=== PATIENT | male | born 1960 | race African-American/Black ===

== ENCOUNTER 2017-01-29 08:07 | Inpatient (IN) | payer BC ==
--- NOTE | 2017-01-29 08:09 | PDOC ---
History of Present Illness - General Stated Complaint: CHEST TIGHTNESS Time Seen by Provider: 01/29/17 08:09 History Source: Patient Exam Limitations: No Limitations - History of Present Illness Initial Comments: 01/29/17 08:27 Pt presents to the ED after the acute onset of chest tightness and shortness of breath that began after shoveling snow today. Patient and report that he has been complaining of cough for the last week--was seen in urgent care and diagnosed with bronchitis. Awoke this morning with a subjective feeling of tightness in his left leg. Despite this, he was helping his shovel snow this morning. Patient did not experience chest tightness or shortness of breath while shoveling, but after going up and down the stairs quickly, he developed tightness in his chest and became short of breath. reports that he then collapsed and was briefly unconsicious. On arrival to the ED, patient walked in with assistance from his , but then collapsed at the door of the ED. Did not loose consciousness and was able to get onto a stretcher with assistance. Patient and deny cardiac history. Had stress test in February of 2016 that was normal. Presenting Symptoms: Chest Pain, Near-Syncope Timing/Duration: reports: intermittent Severity/Quality: reports: moderate Location: reports: substernal Chest Pain Radiation: reports: no radiation Activities at Onset: reports: exertion Prior Chest Pain/Cardiac Workup: reports: Stress Test Nitro Today/Relief: Yes: no nitro taken today Aspirin Received prior to arrival (Core Measure): Yes: no aspirin today Past History - Past Medical History Allergies/Adverse Reactions: Allergies Allergy/AdvReac Type Severity Reaction Status Date / Time No Known Allergies Allergy Verified 01/29/17 08:48 Home Medications: Ambulatory Orders Imatinib Mesylate [Gleevec] 400 mg PO DAILY 12/28/15 - Suicide/Smoking/Psychosocial Hx Smoking Status: No Smoking History: Never smoked Have you smoked in the past 12 months: No Number of Cigarettes Smoked Daily: 0 Hx Alcohol Use: Yes (stopped over 16 years) Drug/Substance Use Hx: No Substance Use Type: None Hx Substance Use Treatment: No Cardiac Specific PMH - Complaint Specific PMHX Abdominal Aortic Aneurysm: No Angina: No Cardiac Arrhythmia: No Cardiac Stent: No GERD: No Myocardial Infarction: No Pacemaker: No Pulmonary Embolus: No Valvular Heart Disease: No Peripheral Vascular Disease: No Review of Systems - Review of Systems Constitutional: Yes: Diaphoresis. No: Symptoms Reported, See HPI, Chills, Fever , Loss of Appetite, Malaise, Night Sweats, Weakness, Weight Stable, Unintentional Wgt. Loss, Unexplained wgt Loss, Other HEENTM: No: Symptoms Reported, See HPI, Eye Pain, Blurred Vision, Tearing, Recent change in vision, Double Vision, Cataracts, Ear Pain, Ocular Prothesis, Ear Discharge, Nose Pain, Nose Congestion, Tinnitus, Nose Bleeding, Hearing Loss , Throat Pain, Throat Swelling, Mouth Pain, Dental Problems, Difficulty Swallowing, Mouth Swelling, Other Respiratory: Yes: Cough, Shortness of Breath Cardiac (ROS): Yes: Chest Pain, Lightheadedness, Syncope ABD/GI: Yes: Nausea, Vomiting. No: Symptoms Reported, See HPI, Abdominal Distended, Abd. Pain w/ defecation, Blood Streaked Bowels, Constipated, Diarrhea , Difficulty Swallowing, Poor Appetite, Poor Fluid Intake, Rectal Bleeding, Indigestion, Abdominal cramping, Tarry Stools, Other Musculoskeletal: No: Symptoms Reported, See HPI, Back Pain, Gout, Joint Pain, Joint Swelling, Muscle Pain, Muscle Weakness, Neck Pain, Joint Stiffness, Other *Physical Exam - Vital Signs Last Vital Signs Temp Pulse Resp BP Pulse Ox 98.3 F 82 20 131/90 100 01/29/17 08:08 01/29/17 11:10 01/29/17 11:10 01/29/17 11:10 01/29/17 11:10 - Physical Exam General Appearance: Yes: Nourished, Appropriately Dressed, Mild Distress HEENT: positive: Normal Voice Neck: positive: Supple Respiratory/Chest: positive: Lungs Clear, Normal Breath Sounds. negative: Chest Tender, Respiratory Distress, Accessory Muscle Use, Labored Respiration, Rapid RR, Decreased Breath Sounds, Paradoxal Breathing, Crackles, Rales, Rhonchi , Stridor, Wheezing, Hyperresonant, Dullness, Plerual Rub, Other Cardiovascular: positive: Regular Rhythm, Regular Rate, S1, S2 Gastrointestinal/Abdominal: positive: Normal Bowel Sounds, Soft. negative: Tender, Flat, Organomegaly, Pulsatile Mass, Increased Bowel Sounds, Decreased BS , Protuberent, Distended, Guarding, Rebound, Tenderness, Hernia, Mass, Hepatomegaly, Spleenomegaly, Other Musculoskeletal: positive: Normal Inspection. negative: CVA Tenderness, CVA Tenderness (R), CVA Tenderness (L), Decreased Range of Motion, Muscle Spasm, Vertebral Tenderness, Other Extremity: negative: Normal Capillary Refill, Normal Inspection, Normal Range of Motion, Tender, Pelvis Stable, Coldness, Cyanosis, Delayed Capillary Refill, Pedal Edema, Swelling, Calf Tenderness, Erythema, Inflammation, Other Integumentary: positive: Pale, Clammy Neurologic: positive: Fully Oriented, Alert, Normal Mood/Affect Heart Score/ECG Review - History History: Highly suspicious - Electrocardiogram EKG: Non specific repolarization disturbance - Age Age: 45-65 - Risk Factors Based on the list above the patient has:: No risk factors known - Troponin Troponin: </= normal limit - Score Heart Score - Total: 4 - ECG Intrepretation Rhythm: Regular Rhythm - [facility]: Normal - ST and T Early Repolarization: No Non Specific ST-T Wave changes: Yes ED Treatment Course - LABORATORY CBC & Chemistry Diagram: 01/29/17 08:15 01/29/17 08:15 - ADDITIONAL ORDERS Additional order review: Laboratory Results 01/29/17 08:15 Sodium 135 L Potassium 3.4 L Chloride 105 Carbon Dioxide 19 L Anion Gap 11 BUN 20 H Creatinine 1.7 H Creat Clearance w eGFR 41.75 Random Glucose 192 H Calcium 8.5 Total Bilirubin 0.6 AST 20 ALT 27 Alkaline Phosphatase 52 Creatine Kinase 162 Creatine Kinase Index 1.4 CK-MB (CK-2) 2.3 Troponin I 0.03 B-Natriuretic Peptide 23.28 Total Protein 6.4 Albumin 3.7 01/29/17 08:15 RBC 4.61 MCV 92.2 MCHC 32.0 RDW 13.8 MPV 8.4 Neutrophils % 56.8 Lymphocytes % 30.3 Monocytes % 9.8 Eosinophils % 3.0 Basophils % 0.1 - RADIOLOGY Radiology Studies Ordered: Category Date Time Status CHEST X-RAY PORTABLE* [RAD] Stat Radiology 01/29/17 08:10 Completed DUPLEX VASCUL US-1 LEG [US] Stat Ultrasound 01/29/17 08:12 Completed - Medications Given in the ED: ED Medications Discontinued Medications Generic Name Dose Route Start Last Admin Trade Name Freq PRN Reason Stop Dose Admin Acetaminophen 1,000 mg 01/29/17 08:10 01/29/17 08:22 Ofirmev Injection - IVPB 01/29/17 08:11 1,000 mg ONCE ONE Administration Aspirin 324 mg 01/29/17 08:10 01/29/17 08:22 Asa - PO 01/29/17 08:11 324 mg ONCE ONE Administration Enoxaparin Sodium 100 mg 01/29/17 09:43 01/29/17 09:59 Lovenox - SQ 01/29/17 09:44 100 mg ONCE ONE Administration Sodium Chloride 1,000 ml 01/29/17 08:11 01/29/17 08:23 Normal Saline - IV 01/29/17 08:12 1,000 ml ONCE ONE Administration Medical Decision Making - Medical Decision Making 01/29/17 08:38 pt presents to the ED Complaining of chest tightness, shortness of breath, accompanied by presyncope, nausea and diaphoresis. EKG is shows no signs of acute ischemia, but suspicion remains high for ACS. Will check labs, treat with ASA, likely admit for serial cardiac enzymes. 01/29/17 08:40 01/29/17 11:51 Duplex shows popiteal and calf DVT. Concern for PE. Patient cannot be scanned secondary to Cr of 1.7. Will anticoagulate with lovenox. Patient will need V q scan. Given this, and given that the patient's initial presyncope could be indicative of massive PE, I feel that he should be transferred to [facility] for more intensvie monitoring. I have discussed this at length with the patient and his family and they agree. Attempted to contact Dr. Haskins x 3 over the course of an hour. PAtient and family have expressed the desire to change physicians. Will admit to the hospitalist since I have been unable to contact Dr. Haskins. *DC/Admit/Observation/Transfer Diagnosis at time of Disposition: Syncope and collapse - Discharge Dispostion Condition at time of disposition: Good Admit: Yes - Referrals - Patient Instructions - Post Discharge Activity
[2017-01-29] MEDS ORDERED: ASPIRIN 81 MG CHEWABLE TABLETS PO ONE (08:10)
[2017-01-29] MEDS ORDERED: ACETAMINOPHEN 1000 MG/100 ML VIAL (NON FORMULARY) IVPB ONE (08:10)
[2017-01-29] MEDS ORDERED: SODIUM CHLORIDE 0.9% 1000 ML INFUS.BAG IV ONE (08:11)
[2017-01-29] MEDS ORDERED: ASPIRIN 81 MG CHEWABLE TABLETS ONE (08:16)
[2017-01-29] MEDS ORDERED: ACETAMINOPHEN INJECTION 100 ML IVPB ONE (08:16)
[2017-01-29 08:46] LABS: BASO % 0.1 % (0-2.0); MCH 29.5 pg (25.7-33.7); MEAN CELL VOLUME 92.2 fl (80-96); MEAN PLT VOLUME 8.4 fl (7.5-11.1); NEUT % 56.8 % (42.8-82.8); PLATELET COUNT 200 K/MM3 (134-434); RDW 13.8 % (11.9-15.9); WHITE BLOOD COUNT 10.1 K/mm3 (4.0-10.8)
[2017-01-29 09:38] LABS: TROPONIN I (DFP) 0.03 ng/ml (0.03-0.50)
[2017-01-29] MEDS ORDERED: ENOXAPARIN NA (PORCINE) 100 MG/1 ML DISP.SYRIN SQ ONE ×2 (09:43→09:55)
[2017-01-29 09:53] LABS: ALBUMIN 3.7 g/dl (3.5-5.0); ALK PHOS 52 U/L (32-92); ANION GAP 11 (8-16); BILIRUBIN,TOTAL 0.6 mg/dl (0.2-1.0); CALCIUM 8.5 mg/dl (8.4-10.2); CO2 19 mmol/L (22-28); CPK 162 IU/L (39-308); CREATININE 1.7 mg/dl (0.6-1.3); GLUCOSE,RANDOM 192 mg/dl (74-106); SGOT/AST 20 U/L (10-42); SGPT/ALT 27 U/L (10-40); TOT PROT 6.4 g/dl (6.4-8.3)
[2017-01-29] MEDS ORDERED: ENOXAPARIN NA (PORCINE) 100 MG/1 ML DISP.SYRIN SQ SCH ×3 (15:15→22:00)
--- NOTE | 2017-01-29 16:12 | CON.CARD ---
Consult Consult Specialty:: cardiology Reason for Consultation:: shortness of breath; chest pain; syncope - History of Present Illness History of Present Illness: 56 yr old black man with PMHx CML, BPH, presents to the ED after the acute onset of chest tightness and shortness of breath that began after shoveling snow today. Patient and report that he has been complaining of cough for the last week--was seen in urgent care and diagnosed with bronchitis. Awoke this morning with a subjective feeling of tightness in his left leg. Despite this, he was helping his shovel snow this morning. Patient did not experience chest tightness or shortness of breath while shoveling, but after going up and down the stairs quickly, he developed tightness in his chest and became short of breath. reports that he then collapsed and was briefly unconscious. On arrival to the ED, patient walked in with assistance from his , but then collapsed at the door of the ED. Did not loose consciousness and was able to get onto a stretcher with assistance. Patient and deny cardiac history. Had coronary angiogram (?February of 2016 ) that was reportedly showed nonobstructive CAD. Pt's says they had several long-distance car trips in the past few weeks, including round-trip to [place] within the past 10 days (pt was passenger ; they often did not get out of the car for hours). - History Source History Provided By: Patient, Medical Record Limitations to Obtaining History: No Limitations - Past Medical History Cardio/Vascular: No: HTN Pulmonary: No: Asthma Psych: Yes: Anxiety - Past Surgical History Additional Surgical History: coronary angiogram ?02/2016 - Alcohol/Substance Use Hx Alcohol Use: Yes (stopped over 16 years) - Smoking History Smoking history: Never smoked Have you smoked in the past 12 months: No Aproximately how many cigarettes per day: 0 - Social History Usual Living Arrangement: With Spouse Home Medications - Allergies Allergies/Adverse Reactions: Allergies Allergy/AdvReac Type Severity Reaction Status Date / Time No Known Allergies Allergy Verified 01/29/17 08:48 - Home Medications Home Medications: Ambulatory Orders Imatinib Mesylate [Gleevec] 400 mg PO DAILY 12/28/15 Benzonatate 100 mg PO Q8H PRN 01/29/17 Finasteride 5 mg PO DAILY 01/29/17 Family Disease History - Family Disease History Family History: Denies Review of Systems - Review of Systems Constitutional: reports: Weakness Eyes: reports: No Symptoms HENT: reports: No Symptoms Neck: reports: No Symptoms Cardiovascular: reports: Chest Pain Respiratory: reports: SOB on Exertion Gastrointestinal: reports: No Symptoms Genitourinary: reports: No Symptoms Breasts: reports: No Symptoms Reported Musculoskeletal: reports: Muscle Pain, Muscle Weakness Integumentary: reports: No Symptoms Neurological: reports: Weakness Endocrine: reports: No Symptoms Hematology/Lymphatic: reports: Other (CML) Psychiatric: reports: Anxiety - Risk Factors Known Risk Factors: Yes: Age, Gender, Hypertension, Physical Inactivity (little formal exercise; walks short distances at work), Race, Other Vital Signs: Vital Signs Temperature 97.7 F 01/29/17 14:38 Pulse Rate 78 01/29/17 14:38 Respiratory Rate 20 01/29/17 14:38 Blood Pressure 137/67 01/29/17 14:38 O2 Sat by Pulse Oximetry (%) 97 01/29/17 14:38 Constitutional: Yes: Anxious Eyes: Yes: WNL HENT: Yes: WNL Neck: Yes: WNL Respiratory: Yes: Regular, Diminished Gastrointestinal: Yes: Soft Renal/: No: Anuria Cardiovascular: Yes: Regular Rate and Rhythm JVD: No Carotid Bruit: No PMI: Non-Displaced Heart Sounds: Yes: S1, S2 Murmur: Yes: Systolic Murmur, Grade 2 Musculoskeletal: Yes: WNL Extremities: Yes: WNL Edema: Yes Edema: LLE: 2+ (calf tender in past 2 days; now enlarged) Peripheral Pulses WNL: Yes Integumentary: Yes: WNL Neurological: Yes: Alert, Oriented, Weakness Psychiatric: Yes: Other (anxiety) - Other Data Labs, Other Data: CBC, BMP 01/29/17 08:15 Troponin, BNP 01/29/17 08:15 Troponin I 0.03 B-Natriuretic Peptide 23.28 Troponin, BNP 01/29/17 08:15 Troponin I 0.03 B-Natriuretic Peptide 23.28 Echo: Image Reviewed Ejection Fraction %: LVEF > or = 40 % Imaging - Results Chest X-ray: Image Reviewed (no acute pathology) Cat Scan: Pending Ultrasound: Image Reviewed (ECHO: reduced RVEF; enlarged RV; normal LVEF and LV wall motion) EKG: Image Reviewed (2nd EKG shows emerging T wave inversions V1-3; NSR) Problem List - Problems (1) Pulmonary embolism Assessment/Plan: CT chest: bilateral large PE; left DVT on vascular study. Hx long car trips over the past few weeks. Syncope x 2 today. ECHO today: normal LVEF, with no regional wall abnormalities; abnormal diastolic compliance; moderate RVE and moderately reduced RVEF; moderate TR and pulmonary HTN. On lovenox; change to IV heparin in anticipation of IR procedure. TNI 0.02-->2, with CK relative index low; mild EKG changes. Hx nonobstructive CAD on coronary angiogram 02/2016. TNI elevationLikely not related to CAD, but rather secondary to PE, demand stress. High-dose statin; f/u lipids. Code(s): I26.99 - OTHER PULMONARY EMBOLISM WITHOUT ACUTE COR PULMONALE (2) Syncope and collapse Code(s): R55 - SYNCOPE AND COLLAPSE (3) Chest pain of uncertain etiology Code(s): R07.89 - OTHER CHEST PAIN
[2017-01-29 16:22] VITALS: BMI 27.6
[2017-01-29 16:36] LABS: INR 1.1 (0.82-1.09); PROTHROMBIN TIME (PATIENT) 12.4 SEC (9.98-11.88)
[2017-01-29 16:39] LABS: ACTIVATED PTT 34.3 SECONDS (26.9-34.4)
[2017-01-29 16:47] LABS: ANION GAP 9 (8-16); CALCIUM 8.6 mg/dL (8.5-10.1); CO2 24 mmol/L (21-32); CREATININE 1.3 mg/dL (0.7-1.3); GLUCOSE,RANDOM 86 mg/dL (74-106)
--- NOTE | 2017-01-29 17:15 | CONSULT ---
Consult - text type - Consultation Consultation Note: Patient presents to the ED after the acute onset of chest tightness and shortness of breath that began after shoveling snow today. Patient and report that he has been complaining of cough for the last week--was seen in urgent care and diagnosed with bronchitis. Awoke this morning with a subjective feeling of tightness in his left leg. Despite this, he was helping his shovel snow this morning. Patient did not experience chest tightness or shortness of breath while shoveling, but after going up and down the stairs quickly, he developed palpitations, tightness in his chest and became short of breath. reports that he then collapsed and was briefly unconsicious. On arrival to the ED, patient walked in with assistance from his , but then collapsed at the door of the ED. Did not loose consciousness and was able to get onto a stretcher with assistance. Patient and deny cardiac history. Had stress test in February of 2016 that was normal. Recent travel to and from [place] by car. > 5hrs. car ride. 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 Major molecular remission . Last bcr;abl--01/07/17 HTN Restless legs ? migraine headaches Allergies/Adverse Reactions: Allergies Allergy/AdvReac Type Severity Reaction Status Date / Time No Known Allergies Allergy Verified 01/29/17 08:48 Home Medications: Ambulatory Orders Imatinib Mesylate [Gleevec] 400 mg PO DAILY 12/28/15 - Suicide/Smoking/Psychosocial Hx never smpked - Vital Signs Last Vital Signs Temp Pulse Resp BP Pulse Ox 98.3 F 82 20 131/90 100 01/29/17 08:08 01/29/17 11:10 01/29/17 11:10 01/29/17 11:10 01/29/17 11:10 Cor: RSR, No murmurs, No gallops Lungs: Clear to P&A Abd: Soft, Normal bowel sounds, No organomegaly Ext: LLE edema Abnormal Lab Results 01/29/17 01/29/17 01/29/17 08:15 15:40 15:40 PT with INR 12.40 H Sodium 135 L Potassium 3.4 L Chloride 108 H Carbon Dioxide 19 L BUN 20 H Creatinine 1.7 H Random Glucose 192 H Troponin I 01/29/17 15:40 PT with INR Sodium Potassium Chloride Carbon Dioxide BUN Creatinine Random Glucose Troponin I 2.26 H* Active Medications Generic Name Dose Route Start Last Admin Trade Name Leora PRN Reason Stop Dose Admin Atorvastatin Calcium 80 mg 01/29/17 17:25 Lipitor - PO 01/29/17 17:26 HS STA Enoxaparin Sodium 90 mg 01/29/17 22:00 Lovenox - SQ Q12H IVA Finasteride 5 mg 01/30/17 10:00 Proscar - PO DAILY IVA Sodium Chloride 1,000 mls @ 75 mls/hr 01/29/17 17:30 Normal Saline - IV ASDIR IVA Non-Formulary Medication 400 mg 01/30/17 10:00 Imatinib Mesylate [Gleevec] PO DAILY IVA Potassium Chloride 40 meq 01/29/17 15:30 K-Dur - PO 01/29/17 21:31 Q6H IVA A/P 56 y/o patient with CML, HTN, comes in with chest pain,palpitations, near syncope, SOB after shoveling snow this morning ? Provoked DVT-- left popliteal and posterior tibial DVT. Recent travel on and 01/15 by car to and from [place] Most likely PE given rt. heart dysfunction on echo, clinical presentation Agree with lovenox --90mg SC bid CML-- diagnosed 2012 in accelarated phase HAs been on gleevec 400mg daily In molecular remission --bcr;abl neg. 01/07/17 Migraine headaches, LUE and LLE weakness ?Neurology f/u for MRI when able CKD--stable
[2017-01-29 17:19] LABS: TROPONIN I 2.26 ng/ml (0.00-0.05)
[2017-01-29] MEDS ORDERED: ATORVASTATIN CA 80 MG TABLET (FP) PO STA (17:25)
--- NOTE | 2017-01-29 17:25 | HP ---
CHIEF COMPLAINT: Palpitations, syncope, chest pain HISTORY OF PRESENT ILLNESS: 56 year-old male with a PMH significant for chronic myeloid leukemia x 4 years, in remission, and BPH. Patient has been traveling extensively, most recently drove round trip to [place] during , spending about 18- 20 hours in a car. Yesterday, patient experienced pain in his left medial thigh and he applied a heating pad. Today, the left medial thigh pain was gone, replaced by left calf circumferential pain and swelling. Despite the pain, patient went outside to help his shovel snow. His daughter needed something from the house so he ran into the house and up and down a flight of stairs. He felt his heart racing, became lightheaded, and he bent over to catch his breath. The next thing he remembered was his and daughter crying and his daughter on the phone calling 911. Patient refused an ambulance, so his drove him to the [facility]. She noticed his skin was cold and clammy. As his helped him walk into the ED he syncopized a second time. Patient had a cardiac cath 02/2016 which showed clean coronaries. Patient also gives a history of headaches, right upper and lower extremity weakness, and right facial paresthesias x 1-2 months. Patient was recently seen by Dr. Gay for these symptoms and is supposed to get an MRI. PCP: Dr. Sorenson Cardiology: Drs. Hi/Levi Cardiology interventionalist: Dr. Wan Oncology: Dr. Lang Neurology: Dr. Gay ER course (1) BP 137/67, pulse 78, SpO2 97-100% room air (2) ECG sinus rhythm @ 73bpm with nonspecific ST and T wave abnormalities (3) CXR unremarkable (4) US LLE: left popliteal thrombus and posterior tibial vein thrombus (5) troponin neg x 1 (6) Cr 1.7; NS x 1L given (7) Lovenox 100mg subq x 1 given (8) ASA 325mg given (9) transferred to [facility] to telemetry Recent Travel: Yes- car roundtrip from [place] to [place] PAST MEDICAL HISTORY: Chronic myeloid leukemia, in remission Benign prostatic hypertrophy PAST SURGICAL HISTORY: Social History: Smoking: never Alcohol: no Drugs: no Family History: Mother 78 a&w; father recently diagnosed with CML, 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 design 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; two sisters a&w Allergies No Known Allergies Allergy (Verified 01/29/17 08:48) HOME MEDICATIONS: Home Medications Medication Instructions Recorded Imatinib Mesylate [Gleevec] 400 mg PO DAILY 12/28/15 Benzonatate 100 mg PO Q8H PRN 01/29/17 Finasteride 5 mg PO DAILY 01/29/17 REVIEW OF SYSTEMS CONSTITUTIONAL: Absent: fever, chills, diaphoresis, generalized weakness, malaise, loss of appetite, weight change HEENT: Absent: rhinorrhea, nasal congestion, throat pain, throat swelling, difficulty swallowing, mouth swelling, ear pain, eye pain, visual changes CARDIOVASCULAR: Present: chest pain, palpitations, syncope x 2, lightheadedness, LLE edema and pain Absent: irregular heart rate RESPIRATORY: Present: SOB Absent: cough, dyspnea with exertion, orthopnea, wheezing, stridor, hemoptysis GASTROINTESTINAL: Absent: abdominal pain, abdominal distension, nausea, vomiting, diarrhea, constipation, melena, hematochezia GENITOURINARY: Absent: dysuria, frequency, urgency, hesitancy, hematuria, flank pain, genital pain MUSCULOSKELETAL: Absent: myalgia, arthralgia, joint swelling, back pain, neck pain SKIN: Absent: rash, itching, pallor HEMATOLOGIC/IMMUNOLOGIC: Absent: easy bleeding, easy bruising, lymphadenopathy, frequent infections ENDOCRINE: Absent: unexplained weight gain, unexplained weight loss, heat intolerance, cold intolerance NEUROLOGIC: Present: headache, right upper and lower extremity weakness and right facial paresthesias, unsteady gait, several falls Absent: dizziness, seizure, mental status changes, bladder or bowel incontinence PSYCHIATRIC: Absent: anxiety, depression, suicidal or homicidal ideation, hallucinations. PHYSICAL EXAMINATION Vital Signs - 24 hr 01/29/17 01/29/17 01/29/17 08:08 09:04 11:10 Temperature 98.3 F Pulse Rate 74 Pulse Rate [ 78 82 Apical] Respiratory 15 16 20 Rate Blood Pressure 97/57 Blood Pressure 134/81 131/90 [Arm] O2 Sat by Pulse 100 100 100 Oximetry (%) 01/29/17 01/29/17 12:25 14:38 Temperature 97.7 F Pulse Rate 78 Pulse Rate [ 88 Apical] Respiratory 20 20 Rate Blood Pressure 137/67 Blood Pressure 141/87 [Arm] O2 Sat by Pulse 97 97 Oximetry (%) GENERAL: Awake, alert, and fully oriented, in no acute distress. NEURO: Mild tongue deviation to the right; mild right ptosis; 3/5 motor LUE, 5/ 5 motor RUE; 2/5 motor LLE, 5/5 motor RLE HEAD: Normal with no signs of trauma. EYES: Pupils equal, round and reactive to light, extraocular movements intact, sclera anicteric, conjunctiva clear. No lid lag. EARS, NOSE, THROAT: Ears normal, nares patent, oropharynx clear without exudates. Moist mucous membranes. NECK: Normal range of motion, supple without lymphadenopathy, JVD, or masses. LUNGS: Breath sounds equal, clear to auscultation bilaterally. No wheezes, and no crackles. No accessory muscle use. HEART: Regular rate and rhythm, normal S1 and S2 without murmur, rub or gallop. ABDOMEN: Soft, nontender, not distended, normoactive bowel sounds, no guarding, no rebound, no masses. No hepatomegaly or splenomegaly. MUSCULOSKELETAL: Normal range of motion at all joints. No bony deformities or tenderness. No CVA tenderness. UPPER EXTREMITIES: 2+ pulses, warm, well-perfused. No cyanosis. No clubbing. No peripheral edema. LOWER EXTREMITIES: 2+ pulses, warm, well-perfused. No calf tenderness. No peripheral edema. NEUROLOGICAL: Cranial nerves II-XII intact. Normal speech. Normal gait. PSYCHIATRIC: Cooperative. Good eye contact. Appropriate mood and affect. SKIN: Warm, dry, normal turgor, no rashes or lesions noted, normal capillary refill. Laboratory Results - last 24 hr 01/29/17 01/29/17 01/29/17 08:15 08:15 15:40 WBC 10.1 RBC 4.61 Hgb 13.6 Hct 42.5 MCV 92.2 MCH 29.5 MCHC 32.0 RDW 13.8 Plt Count 200 MPV 8.4 Neutrophils % 56.8 Lymphocytes % 30.3 Monocytes % 9.8 Eosinophils % 3.0 Basophils % 0.1 PT with INR 12.40 H INR 1.10 PTT (Actin FS) 34.3 Sodium 135 L Potassium 3.4 L Chloride 105 Carbon Dioxide 19 L Anion Gap 11 BUN 20 H Creatinine 1.7 H Creat Clearance w eGFR 41.75 Random Glucose 192 H Calcium 8.5 Total Bilirubin 0.6 AST 20 ALT 27 Alkaline Phosphatase 52 Creatine Kinase 162 Creatine Kinase Index 1.4 CK-MB (CK-2) 2.3 Troponin I 0.03 B-Natriuretic Peptide 23.28 Total Protein 6.4 Albumin 3.7 01/29/17 01/29/17 15:40 15:40 WBC RBC Hgb Hct MCV MCH MCHC RDW Plt Count MPV Neutrophils % Lymphocytes % Monocytes % Eosinophils % Basophils % PT with INR INR PTT (Actin FS) Sodium 141 Potassium 4.2 Chloride 108 H Carbon Dioxide 24 Anion Gap 9 BUN 16 Creatinine 1.3 Creat Clearance w eGFR Random Glucose 86 Calcium 8.6 Total Bilirubin AST ALT Alkaline Phosphatase Creatine Kinase Creatine Kinase Index CK-MB (CK-2) Troponin I 2.26 H* B-Natriuretic Peptide Total Protein Albumin ASSESSMENT/PLAN 56 year-old male with a PMH significant for chronic myeloid leukemia x 4 years, in remission, and BPH. Admitted for LLE DVT and pulmonary emboli. LLE DVT --like provoked, recent prolonged travel; CML is in remission, Dr. Anne does not think this is contributing cause to DVT --01/29 LLE: partially occlusive thrombus of left popliteal and posterior tibial veins --given lovenox in ED, started heparin drip Submassive bilateral pulmonary emboli Right heart systolic failure Diastolic dysfunction Demand ischemia --01/29 CTA: bilateral pulmonary emboli right and left main pulmonary arteries extending into all lobar, segmental, and subsegmental branches bilaterally; right heart relatively prominent in size with flattening of the interventricular septum --01/29 Echo: impaired LV relaxation; RV moderately dilated, RV systolic function moderately reduced; no ASD; mild MR; moderate TR; RVSP 40-50mmHg moderate pHTN --mild ischemic changes on serial ECGs --troponin 0.02-->2.26-->1.62, more consistent with demand ischemia than ACS --start ASA, high-dose Lipitor Dehydration --Cr 1.7 on admission, baseline 1.2 --resolved with IV fluids, now off Syncope --secondary to submassive PE --CT head negative for acute pathology Chronic myeloid leukemia --in remission, stable --continue home Gleevac BPH --continue Proscar Dispo: case discussed at length with Dr. Sims, Dr. Lang, Dr. Chery, and Dr. Gonzalez. Plan is for catheter-directed TPA in the morning provided patient continues to be stable hemodynamically and does not become hypoxic. If status deteriorates, will need to activate IR team. Visit type - Emergency Visit Emergency Visit: Yes ED Registration Date: 01/30/17 Care time: The patient presented to the Emergency Department on the above date and was hospitalized for further evaluation of their emergent condition. - New Patient This patient is new to me today: Yes Date on this admission: 01/30/17 - Critical Care Critical Care patient: Yes Total Critical Care Time (in minutes): 120 Critical Care Statement: The care of this patient involved high complexity decision making to prevent further life threatening deterioration of the patient 's condition and/or to evaluate & treat vital organ system(s) failure or risk of failure.
[2017-01-29] MEDS ORDERED: SODIUM CHLORIDE 1,000 ML IV SCH (17:30)
[2017-01-29] MEDS: POTASSIUM CHLORIDE TABS 20 MEQ TABLET.ER (FP) PO SCH ×2 (18:31→21:54)
[2017-01-29] MEDS ORDERED: HEPARIN NA (PORCINE) 5,000 UNITS/ML 1ML VIAL IVPUSH PRN ×3 (19:25→22:00)
[2017-01-29] MEDS ORDERED: HEPARIN INFUSION - 25,000 UNITS/500 ML INFUS.BAG IVPB SCH (19:30)
[2017-01-29] MEDS ORDERED: MUPIROCIN 2% TOPICAL OINTMENT FOR DECOLONIZATION NS SCH (22:00)
[2017-01-29] MEDS ORDERED: CHLORHEXIDINE GLUCONATE 4% CLEANSER FOR DECOLONIZATION TP SCH (22:00)
[2017-01-29] MEDS: HEPARIN INFUSION - 25,000 UNITS/500 ML INFUS.BAG IVPB SCH (22:32)
[2017-01-29] MEDS: ATORVASTATIN CA 80 MG TABLET (FP) PO SCH (22:36)
--- NOTE | 2017-01-29 23:43 | CONSULT ---
Consult Consult Specialty:: PULM/CCM Referred by:: Dr. Sorenson Reason for Consultation:: PE - History of Present Illness Chief Complaint: Sync History of Present Illness: Mr. Weber is 56 y/o man w/ chronic myeloid leukemia x 4 years, in full remission, and BPH. Of note: Pt has been traveling by car extensively recently, most recently drove round trip to [place] during , spending about 18-20 hours in a car. Yesterday, patient experienced pain in his left medial thigh and he applied a heating pad. Today, the left medial thigh pain was gone, replaced by left calf circumferential pain. Patient also noticed new swelling of left leg. Despite the pain, patient went outside to help his shovel snow. His daughter then needed something from the house so he ran into the house and up and down a flight of stairs. He then felt his heart racing , he became lightheaded, bent over to catch his breath., & syncopized. The next thing he remembered was his and daughter crying and his daughter on the phone calling 911. Patient refused an ambulance, so his put him in the car & drove him to the [facility] ED. reports pt's skin was cold and clammy on the way to the ED. As his helped him walk into the ED he syncopized a second time. Patient reports a negative stress test in February 2016. It is unclear at this time if he ever underwent cardiac cath. Patient also gives a history of headaches, right upper and lower extremity weakness, and right facial paresthesias x 1-2 months. Patient was recently seen by Dr. Gay for these symptoms and was pending an MRI. In ED pt Tx'ed w/ Lovenox for CTA w/ PE. Pt initially admitted to Tele. On tele floor TTE shows sig R heart Strain. Pt transferred now to the ICU for frequent V/S. 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 Renal/: Yes: BPH Heme/Onc: Yes: Other (chronic myeloid leukemia.) Endocrine: No: Diabetes Mellitus - Alcohol/Substance Use Hx Alcohol Use: Yes (stopped over 16 years) - Smoking History Smoking history: Never smoked Have you smoked in the past 12 months: No Aproximately how many cigarettes per day: 0 - Social History Usual Living Arrangement: With Spouse ADL: Independent Home Medications - Allergies Allergies/Adverse Reactions: Allergies Allergy/AdvReac Type Severity Reaction Status Date / Time No Known Allergies Allergy Verified 01/29/17 08:48 - Home Medications Home Medications: Ambulatory Orders Imatinib Mesylate [Gleevec] 400 mg PO DAILY 12/28/15 Benzonatate 100 mg PO Q8H PRN 01/29/17 Finasteride 5 mg PO DAILY 01/29/17 Family Disease History - Family Disease History Family History: Denies Review of Systems - Review of Systems Constitutional: reports: No Symptoms Eyes: reports: No Symptoms HENT: reports: No Symptoms, Ocular Prosthesis Cardiovascular: reports: Palpitations, Shortness of Breath Respiratory: reports: Exercise Intolerance, SOB Gastrointestinal: reports: No Symptoms Genitourinary: reports: No Symptoms, Testicular Pain Musculoskeletal: reports: No Symptoms, Muscle Weakness Integumentary: reports: No Symptoms Neurological: reports: Parasthesia, Syncope Endocrine: reports: No Symptoms Hematology/Lymphatic: reports: No Symptoms Psychiatric: reports: No Symptoms Pain Intensity: 0 Physical Exam Vital Signs: Vital Signs Temperature 98.0 F 01/29/17 17:00 Pulse Rate 75 01/29/17 18:58 Respiratory Rate 20 01/29/17 18:58 Blood Pressure 127/73 01/29/17 18:58 O2 Sat by Pulse Oximetry (%) 97 01/29/17 14:38 Constitutional: Yes: Well Nourished, No Distress, Calm Eyes: Yes: WNL, Conjunctiva Clear, EOM Intact HENT: Yes: WNL, Atraumatic, Normocephalic Neck: Yes: WNL, Supple, Trachea Midline Cardiovascular: Yes: WNL, Regular Rate and Rhythm Respiratory: Yes: WNL, Regular, CTA Bilaterally Gastrointestinal: Yes: WNL, Normal Bowel Sounds ...Rectal Exam: Yes: Deferred Renal/: Yes: WNL Breast(s): Yes: WNL Musculoskeletal: Yes: WNL Extremities: Yes: Calf Tenderness, Other (LLE swollen) Edema: Yes Edema: LLE: 2+ Peripheral Pulses WNL: Yes Integumentary: Yes: WNL Neurological: Yes: WNL, Oriented ...Motor Strength: WNL Psychiatric: Yes: WNL, Alert, Oriented Labs: CBC, BMP 01/29/17 08:15 01/29/17 15:40 Troponin, BNP 01/29/17 01/29/17 01/29/17 08:15 15:40 21:30 Troponin I 0.03 2.26 H* 1.62 H* B-Natriuretic Peptide 23.28 INR, PTT INR 1.10 (0.82-1.09) 01/29/17 15:40 Imaging - Results Cat Scan: Image Reviewed (CTA CHEST 01/29: B/L PE's (My Read - Official Read Pending).) Ultrasound: Image Reviewed (TTE 01/29: LV impaired relaxation; RV moderately dilated, systolic function moderately reduced; no ASD; mild MR; moderate TR; RVSP 40-50mmHg moderate pHTN.), Other (LLE US 01/29: partially occlusive thrombus left popliteal and posterior tibial veins) EKG: Image Reviewed (01/29: progressive ischemic changes; right-axis deviation.) Problem List - Problems (1) Pulmonary embolism Code(s): I26.99 - OTHER PULMONARY EMBOLISM WITHOUT ACUTE COR PULMONALE Assessment/Plan ASSESS: This is a 56 y/o man w/ chronic myeloid leukemia and BPH who presents now w/ a PE & LLE DVT in the setting of dehydration & multiple recent long distance car rides. PLAN: -Supp FiO2 prn for an SpO2 > 92% -IS -Heparin for full PTT -F/u CTA CHEST Read -IV Re-hydrate -NPO after midnight -IR in the AM for temp IVC +/- cath directed TPA -Can cont his Proscar -De-colonize -Systemic AC -No SCDs on the L -No indication for a PPI -F/u w/ Onc DGL, ACNP-BC [id number] PULM/CCM
[2017-01-29] MEDS ORDERED: PT OWN MED DRAWER 7, Y5N ONE (23:46)
[2017-01-30] MEDS: MUPIROCIN 2% TOPICAL OINTMENT FOR DECOLONIZATION NS SCH ×3 (00:10→22:02)
[2017-01-30] MEDS: CHLORHEXIDINE GLUCONATE 4% CLEANSER FOR DECOLONIZATION TP SCH ×2 (00:11→22:02)
[2017-01-30 04:11] LABS: BASO % 0.3 % (0-2.0); MCH 30.3 pg (25.7-33.7); MCHC 33.2 g/dl (32.0-35.9); MEAN CELL VOLUME 91.3 fl (80-96); MEAN PLT VOLUME 8.2 fl (7.5-11.1); NEUT % 58.4 % (42.8-82.8); PLATELET COUNT 164 K/MM3 (134-434); RDW 14.1 % (11.9-15.9); WHITE BLOOD COUNT 8.7 K/mm3 (4.0-10.0)
[2017-01-30 04:22] LABS: PH,URINE 6.5 (5.0-8.0); URINE APPEARANCE CLEAR; URINE BILIRUBIN NEGATIVE (NEGATIVE); URINE BLOOD NEGATIVE (NEGATIVE); URINE COLOR LT. YELLOW; URINE GLUCOSE (UA) NEGATIVE (NEGATIVE); URINE KETONE NEGATIVE (NEGATIVE); URINE LEUK ESTERASE NEGATIVE (NEGATIVE); URINE NITRITE NEGATIVE (NEGATIVE); URINE PROTEIN NEGATIVE (NEGATIVE); URINE UROBILINOGEN 0.2 mg/dL (0.2-1.0)
[2017-01-30 04:38] LABS: ALBUMIN 3.3 g/dl (3.4-5.0); ALK PHOS 58 U/L (45-117); ANION GAP 7 (8-16); BILIRUBIN,TOTAL 0.4 mg/dL (0.2-1.0); CALCIUM 8.2 mg/dL (8.5-10.1); CO2 26 mmol/L (21-32); CREATININE 1.2 mg/dL (0.7-1.3); GLUCOSE,RANDOM 95 mg/dL (74-106); MAGNESIUM 2.1 mg/dL (1.8-2.4); PHOSPHOROUS 3.6 mg/dL (2.5-4.9); SGOT/AST 17 U/L (15-37); SGPT/ALT 28 U/L (12-78); TOT PROT 6.3 g/dl (6.4-8.2)
--- NOTE | 2017-01-30 08:49 | PN ---
Physical Exam: SUBJECTIVE: Patient seen and examined OBJECTIVE: Vital Signs Period Temp Pulse Resp BP Sys/Correa Pulse Ox Last 24 Hr 97.3 F-98.8 F 64-88 13-20 119-141/67-90 97-100 GENERAL: The patient is awake, alert, and fully oriented, in no acute distress. HEAD: Normal with no signs of trauma. EYES: PERRL, extraocular movements intact, sclera anicteric, conjunctiva clear. No ptosis. ENT: Ears normal, nares patent, oropharynx clear without exudates, moist mucous membranes. NECK: Trachea midline, full range of motion, supple. LUNGS: Breath sounds equal, clear to auscultation bilaterally, no wheezes, no crackles, no accessory muscle use. HEART: Regular rate and rhythm, S1, S2 without murmur, rub or gallop. ABDOMEN: Soft, nontender, nondistended, normoactive bowel sounds, no guarding, no rebound, no hepatosplenomegaly, no masses. EXTREMITIES: 2+ pulses, warm, well-perfused, no edema. NEUROLOGICAL: Cranial nerves II through XII grossly intact. Normal speech, gait not observed. PSYCH: Normal mood, normal affect. SKIN: Warm, dry, normal turgor, no rashes or lesions noted Laboratory Results - last 24 hr 01/29/17 01/29/17 01/29/17 08:15 08:15 15:40 WBC 10.1 RBC 4.61 Hgb 13.6 Hct 42.5 MCV 92.2 MCH 29.5 MCHC 32.0 RDW 13.8 Plt Count 200 MPV 8.4 Neutrophils % 56.8 Lymphocytes % 30.3 Monocytes % 9.8 Eosinophils % 3.0 Basophils % 0.1 PT with INR 12.40 H INR 1.10 PTT (Actin FS) 34.3 D-Dimer Sodium 135 L Potassium 3.4 L Chloride 105 Carbon Dioxide 19 L Anion Gap 11 BUN 20 H Creatinine 1.7 H Creat Clearance w eGFR 41.75 Random Glucose 192 H Calcium 8.5 Phosphorus Magnesium Total Bilirubin 0.6 AST 20 ALT 27 Alkaline Phosphatase 52 Creatine Kinase 162 Creatine Kinase Index 1.4 CK-MB (CK-2) 2.3 Troponin I 0.03 B-Natriuretic Peptide 23.28 Total Protein 6.4 Albumin 3.7 Triglycerides Cholesterol Total LDL Cholesterol HDL Cholesterol TSH Urine Color Urine Appearance Urine pH Ur Specific [place] Urine Protein Urine Glucose (UA) Urine Ketones Urine Blood Urine Nitrite Urine Bilirubin Urine Urobilinogen Blood Type Antibody Screen 01/29/17 01/29/17 01/29/17 15:40 15:40 15:40 WBC RBC Hgb Hct MCV MCH MCHC RDW Plt Count MPV Neutrophils % Lymphocytes % Monocytes % Eosinophils % Basophils % PT with INR INR PTT (Actin FS) D-Dimer Sodium 141 Potassium 4.2 Chloride 108 H Carbon Dioxide 24 Anion Gap 9 BUN 16 Creatinine 1.3 Creat Clearance w eGFR Random Glucose 86 Calcium 8.6 Phosphorus Magnesium Total Bilirubin AST ALT Alkaline Phosphatase Creatine Kinase 223 Creatine Kinase Index 2.9 CK-MB (CK-2) 6.451 H Troponin I 2.26 H* B-Natriuretic Peptide Total Protein Albumin Triglycerides Cholesterol Total LDL Cholesterol HDL Cholesterol TSH Urine Color Urine Appearance Urine pH Ur Specific [place] Urine Protein Urine Glucose (UA) Urine Ketones Urine Blood Urine Nitrite Urine Bilirubin Urine Urobilinogen Blood Type O NEGATIVE Antibody Screen Negative 01/29/17 01/29/17 01/29/17 15:40 16:21 21:30 WBC RBC Hgb Hct MCV MCH MCHC RDW Plt Count MPV Neutrophils % Lymphocytes % Monocytes % Eosinophils % Basophils % PT with INR INR PTT (Actin FS) D-Dimer Sodium Potassium Chloride Carbon Dioxide Anion Gap BUN Creatinine Creat Clearance w eGFR Random Glucose Calcium Phosphorus Magnesium 2.2 Total Bilirubin AST ALT Alkaline Phosphatase Creatine Kinase Creatine Kinase Index CK-MB (CK-2) Cancelled Troponin I 1.62 H* B-Natriuretic Peptide Total Protein Albumin Triglycerides Cholesterol Total LDL Cholesterol HDL Cholesterol TSH Urine Color Urine Appearance Urine pH Ur Specific [place] Urine Protein Urine Glucose (UA) Urine Ketones Urine Blood Urine Nitrite Urine Bilirubin Urine Urobilinogen Blood Type Antibody Screen 01/29/17 01/30/17 01/30/17 23:25 04:00 04:00 WBC 8.7 D RBC 4.39 Hgb 13.3 D Hct 40.1 MCV 91.3 MCH 30.3 MCHC 33.2 RDW 14.1 D Plt Count 164 D MPV 8.2 D Neutrophils % 58.4 Lymphocytes % 31.1 D Monocytes % 8.2 Eosinophils % 2.0 Basophils % 0.3 PT with INR INR PTT (Actin FS) D-Dimer 4472 H Sodium 140 Potassium 4.1 Chloride 107 Carbon Dioxide 26 Anion Gap 7 L BUN 15 Creatinine 1.2 Creat Clearance w eGFR > 60 Random Glucose 95 Calcium 8.2 L Phosphorus 3.6 Magnesium 2.1 Total Bilirubin 0.4 D AST 17 ALT 28 Alkaline Phosphatase 58 Creatine Kinase Creatine Kinase Index CK-MB (CK-2) Troponin I B-Natriuretic Peptide Total Protein 6.3 L Albumin 3.3 L Triglycerides Cholesterol Total LDL Cholesterol HDL Cholesterol TSH Urine Color Urine Appearance Urine pH Ur Specific [place] Urine Protein Urine Glucose (UA) Urine Ketones Urine Blood Urine Nitrite Urine Bilirubin Urine Urobilinogen Blood Type Antibody Screen 01/30/17 01/30/17 01/30/17 04:00 04:00 04:00 WBC RBC Hgb Hct MCV MCH MCHC RDW Plt Count MPV Neutrophils % Lymphocytes % Monocytes % Eosinophils % Basophils % PT with INR INR PTT (Actin FS) 56.7 H D D-Dimer Sodium Potassium Chloride Carbon Dioxide Anion Gap BUN Creatinine Creat Clearance w eGFR Random Glucose Calcium Phosphorus Magnesium Total Bilirubin AST ALT Alkaline Phosphatase Creatine Kinase Creatine Kinase Index CK-MB (CK-2) Troponin I B-Natriuretic Peptide Total Protein Albumin Triglycerides Cholesterol Total LDL Cholesterol HDL Cholesterol TSH Cancelled Urine Color Lt. yellow Urine Appearance Clear Urine pH 6.5 Ur Specific [place] 1.010 Urine Protein Negative Urine Glucose (UA) Negative Urine Ketones Negative Urine Blood Negative Urine Nitrite Negative Urine Bilirubin Negative Urine Urobilinogen 0.2 Blood Type Antibody Screen 01/30/17 04:00 WBC RBC Hgb Hct MCV MCH MCHC RDW Plt Count MPV Neutrophils % Lymphocytes % Monocytes % Eosinophils % Basophils % PT with INR INR PTT (Actin FS) D-Dimer Sodium Potassium Chloride Carbon Dioxide Anion Gap BUN Creatinine Creat Clearance w eGFR Random Glucose Calcium Phosphorus Magnesium Total Bilirubin AST ALT Alkaline Phosphatase Creatine Kinase Creatine Kinase Index CK-MB (CK-2) Troponin I B-Natriuretic Peptide Total Protein Albumin Triglycerides Cancelled Cholesterol Cancelled Total LDL Cholesterol Cancelled HDL Cholesterol Cancelled TSH Urine Color Urine Appearance Urine pH Ur Specific [place] Urine Protein Urine Glucose (UA) Urine Ketones Urine Blood Urine Nitrite Urine Bilirubin Urine Urobilinogen Blood Type Antibody Screen Active Medications Generic Name Dose Route Start Last Admin Trade Name Freq PRN Reason Stop Dose Admin Atorvastatin Calcium 80 mg 01/29/17 22:30 01/29/17 22:36 Lipitor - PO 80 mg HS IVA Administration Chlorhexidine Gluconate 1 applic 01/29/17 22:00 01/30/17 00:11 Hibiclens For Decolonization - TP 1 applic HS IVA Administration Finasteride 5 mg 01/30/17 10:00 Proscar - PO DAILY IVA Heparin Sodium (Porcine) 5,000 unit 01/29/17 22:00 Heparin - IVPUSH PRN PRN Heparin Heparin Sodium/Dextrose 25,000 units in 500 mls @ 20 mls/hr 01/29/17 22:00 22:32 Heparin Infusion - IVPB 1,000 units/hr TITR IVA 20 mls/hr Protocol Administration 1,000 UNITS/HR Mupirocin 1 applic 01/29/17 22:00 01/30/17 00:10 Bactroban Ointment (For Decolonization) - NS 02/03/17 21:59 1 applic BID IVA Administration Non-Formulary Medication 400 mg 01/30/17 10:00 Imatinib Mesylate [Gleevec] PO DAILY IVA ASSESSMENT/PLAN 56 year-old male with a PMH significant for chronic myeloid leukemia x 4 years, in remission, and BPH. Admitted for LLE DVT and submassive bilateral PEs. LLE DVT --like provoked, recent prolonged travel; CML is in remission, Dr. Anne does not think this is contributing cause to DVT --01/29 LLE: partially occlusive thrombus of left popliteal and posterior tibial veins --continue heparin drip Submassive bilateral pulmonary emboli Right heart systolic failure Diastolic dysfunction Demand ischemia --01/29 CTA: bilateral pulmonary emboli right and left main pulmonary arteries extending into all lobar, segmental, and subsegmental branches bilaterally; right heart relatively prominent in size with flattening of the interventricular septum --01/29 Echo: impaired LV relaxation; RV moderately dilated, RV systolic function moderately reduced; no ASD; mild MR; moderate TR; RVSP 40-50mmHg moderate pHTN --mild ischemic changes on serial ECGs --troponin 0.02-->2.26-->1.62, more consistent with demand ischemia than ACS --underwent bilateral catheter directed tPA; patient became bradycardic; since returning to ICU HR has normalized, no arrhythmias noted on tele --continue ASA, high-dose Lipitor, heparin drip (PTT therapeutic) Dehydration --Cr 1.7 on admission, baseline 1.2 --resolved with IV fluids, now off Syncope --secondary to submassive PE --CT head negative for acute pathology Chronic myeloid leukemia --in remission, stable --continue home Gleevac BPH --continue Proscar Dispo: continues to require ICU-level care. Visit type - Emergency Visit Emergency Visit: Yes ED Registration Date: 01/30/17 Care time: The patient presented to the Emergency Department on the above date and was hospitalized for further evaluation of their emergent condition. - New Patient This patient is new to me today: No - Critical Care Critical Care patient: Yes Total Critical Care Time (in minutes): 45 Critical Care Statement: The care of this patient involved high complexity decision making to prevent further life threatening deterioration of the patient 's condition and/or to evaluate & treat vital organ system(s) failure or risk of failure.
[2017-01-30 08:57] LABS: CHOLESTEROL 145 mg/dL (50-200)
[2017-01-30 09:04] LABS: THYROID STIMULATING HORMONE 0.58 uIU/ml (0.358-3.74)
[2017-01-30] MEDS ORDERED: FINASTERIDE 5 MG TABLET (FP) PO SCH (10:00)
[2017-01-30] MEDS ORDERED: IMATINIB MESYLATE 400 MG PO SCH ×2 (10:00)
--- NOTE | 2017-01-30 10:08 | CON.NEURO ---
Consult - History of Present Illness History of Present Illness: 56 year old male histotry of passing out episode yesterday when he was helping his clearing slow. He was seeing Dr Gay in past and had complain of left face numbness, now resoved. He was referred for brain mri and as he is claustrophobic it could not be done. He Also have complain of right arm and right leg ? weakness adn numbness. Patient had syncope on January 29 and found to have Large Bialteral PE and left DVT . He also have chest pain. At this time, he denies any focal neurological symptoms, including dysphagia, dysarthria , diplopia or weakness or numbness. 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 Cardio/Vascular: No: HTN Pulmonary: No: Asthma Renal/: Yes: BPH Psych: Yes: Anxiety Endocrine: No: Diabetes Mellitus - Past Surgical History Additional Surgical History: coronary angiogram ?02/2016 - Alcohol/Substance Use Hx Alcohol Use: Yes (stopped over 16 years) - Smoking History Smoking history: Never smoked Have you smoked in the past 12 months: No Aproximately how many cigarettes per day: 0 - Social History Usual Living Arrangement: With Spouse ADL: Independent Home Medications - Allergies Allergies/Adverse Reactions: Allergies Allergy/AdvReac Type Severity Reaction Status Date / Time No Known Allergies Allergy Verified 01/29/17 08:48 - Home Medications Home Medications: Ambulatory Orders Imatinib Mesylate [Gleevec] 400 mg PO DAILY 12/28/15 Benzonatate 100 mg PO Q8H PRN 01/29/17 Finasteride 5 mg PO DAILY 01/29/17 Physical Exam-Neuro Vital Signs: Vital Signs Temperature 98.6 F 01/30/17 06:00 Pulse Rate 67 01/30/17 06:00 Respiratory Rate 16 01/30/17 06:00 Blood Pressure 123/80 01/30/17 06:00 O2 Sat by Pulse Oximetry (%) 98 01/29/17 23:52 Labs: CBC, BMP 01/30/17 04:00 01/30/17 04:00 INR, PTT INR 1.10 (0.82-1.09) 01/29/17 15:40 Imaging - Results Cat Scan: Report Reviewed Assessment/Plan Thank you so much for consult , Covering for Dr Gay HPI 56 year old male histotry of passing out episode yesterday when he was helping his clearing slow. He was seeing Dr Gay in past and had complain of left face numbness, now resoved. He was referred for brain mri and as he is claustrophobic it could not be done. He Also have complain of right arm and right leg ? weakness adn numbness. Patient had syncope on January 29 and found to have Large Bialteral PE and left DVT . He also have chest pain. At this time, he denies any focal neurological symptoms, including dysphagia, dysarthria , diplopia or weakness or numbness. Past Medical HIistory of BPH, CML SH,FH, and ROS was reviewed in chart NKDA HOME MEDICATIONS: Home Medications Medication Instructions Recorded Imatinib Mesylate [Gleevec] 400 mg PO DAILY 12/28/15 Benzonatate 100 mg PO Q8H PRN 01/29/17 Finasteride 5 mg PO DAILY 01/29/17 Neurological Examination Alert Oriented x 3, speech is normal EOMI, pupils reactive, no face asymmetry Moving all extremity , sensation is normal Reflex are symmetrical CT head is normal A/p 1. Sycopal episode , most likley secondary to PE, ct head is normal, Neuro exam is normal, no further testing needed, No need for EEG . 2. Face numbness and arm and leg weakness ( resolved) , was planned for mri of brain ( was planned for open facility), would obtain records from Dr Gay office. Recommend to do mri as outpatient , or may try to do with sedation in Hospital , once he is stable and out of ICU. I would try to obtain records from Dr Gay office Thanks you so much Rodger Salvador MD
--- NOTE | 2017-01-30 11:36 | PN ---
Progress Note, Physician History of Present Illness: 56 yr old black man with PMHx CML, BPH, presents to the ED after the acute onset of chest tightness and shortness of breath that began after shoveling snow today. Patient and report that he has been complaining of cough for the last week--was seen in urgent care and diagnosed with bronchitis. Awoke this morning with a subjective feeling of tightness in his left leg. Despite this, he was helping his shovel snow this morning. Patient did not experience chest tightness or shortness of breath while shoveling, but after going up and down the stairs quickly, he developed tightness in his chest and became short of breath. reports that he then collapsed and was briefly unconscious. On arrival to the ED, patient walked in with assistance from his , but then collapsed at the door of the ED. Did not loose consciousness and was able to get onto a stretcher with assistance. Patient and deny cardiac history. Had coronary angiogram (?February of 2016 ) that was reportedly showed nonobstructive CAD. Pt's says they had several long-distance car trips in the past few weeks, including round-trip to [place] within the past 10 days (pt was passenger ; they often did not get out of the car for hours). - Current Medication List Current Medications: Active Medications Atorvastatin Calcium (Lipitor -) 80 mg PO HS IVA Last Admin: 01/29/17 22:36 Dose: 80 mg Chlorhexidine Gluconate (Hibiclens For Decolonization -) 1 applic TP HS IVA Last Admin: 01/30/17 00:11 Dose: 1 applic Finasteride (Proscar -) 5 mg PO DAILY IVA Heparin Sodium (Porcine) (Heparin -) 5,000 unit IVPUSH PRN PRN PRN Reason: Heparin Heparin Sodium/Dextrose (Heparin Infusion -) 25,000 units in 500 mls @ 20 mls/ hr IVPB TITR IVA; 1,000 UNITS/HR PRN Reason: Protocol Last Admin: 01/29/17 22:32 Dose: 1,000 units/hr, 20 mls/hr Mupirocin (Bactroban Ointment (For Decolonization) -) 1 applic NS BID IVA Stop: 02/03/17 21:59 Last Admin: 01/30/17 00:10 Dose: 1 applic Non-Formulary Medication (Imatinib Mesylate [Gleevec]) 400 mg PO DAILY IVA - Objective Vital Signs: Vital Signs Temperature 98.6 F 01/30/17 06:00 Pulse Rate 77 01/30/17 10:46 Respiratory Rate 16 01/30/17 10:00 Blood Pressure 117/86 01/30/17 10:00 O2 Sat by Pulse Oximetry (%) 96 01/30/17 10:46 Eyes: Yes: WNL, Conjunctiva Clear, EOM Intact HENT: Yes: WNL, Atraumatic, Normocephalic Neck: Yes: WNL, Supple, Trachea Midline Cardiovascular: Yes: WNL, Regular Rate and Rhythm Respiratory: Yes: WNL, Regular, CTA Bilaterally Gastrointestinal: Yes: WNL, Normal Bowel Sounds Genitourinary: Yes: WNL Musculoskeletal: Yes: WNL Extremities: Yes: WNL Edema: No Integumentary: Yes: WNL Neurological: Yes: WNL, Alert, Oriented ...Motor Strength: WNL Psychiatric: Yes: WNL Labs: CBC, BMP 01/30/17 04:00 01/30/17 04:00 INR, PTT INR 1.10 (0.82-1.09) 01/29/17 15:40 Assessment/Plan - Problems (1) Pulmonary embolism Assessment/Plan: CT chest: bilateral large PE; left DVT on vascular study. Hx long car trips over the past few weeks. Syncope x 2 today. ECHO today: normal LVEF, with no regional wall abnormalities; abnormal diastolic compliance; moderate RVE and moderately reduced RVEF; moderate TR and pulmonary HTN. On lovenox; change to IV heparin in anticipation of IR procedure. TNI 0.02-->2, with CK relative index low; mild EKG changes. Hx nonobstructive CAD on coronary angiogram 02/2016. TNI elevationLikely not related to CAD, but rather secondary to PE, demand stress. High-dose statin; f/u lipids. to be evaluated for IR rx of PE /thrombolisis vs conservative rx Code(s): I26.99 - OTHER PULMONARY EMBOLISM WITHOUT ACUTE COR PULMONALE (2) Syncope and collapse Code(s): R55 - SYNCOPE AND COLLAPSE (3) Chest pain of uncertain etiology Code(s): R07.89 - OTHER CHEST PAIN
[2017-01-30] MEDS: FINASTERIDE 5 MG TABLET (FP) PO SCH (13:04)
--- NOTE | 2017-01-30 13:23 | PN ---
Teaching Attending Note Name of Resident: Luis Antonio Davenport ATTENDING PHYSICIAN STATEMENT I saw and evaluated the patient. I reviewed the resident's note and discussed the case with the resident. I agree with the resident's findings and plan as documented. SUBJECTIVE: Patient seen and examined in the ICU. Awake and alert. Reports some palpitations this AM. No SOB. IV Heparin infusing. Intake & Output 01/27/17 01/28/17 01/29/17 01/30/17 23:59 23:59 23:59 23:59 Intake Total 1580 160 Output Total 500 425 Balance 1080 -265 Weight 198 lb 9.6 oz 200 lb 7 oz Last Vital Signs Temp Pulse Resp BP Pulse Ox 98.6 F 62 22 127/89 96 01/30/17 06:00 01/30/17 12:00 01/30/17 12:00 01/30/17 12:00 01/30/17 10:46 Active Medications Atorvastatin Calcium (Lipitor -) 80 mg PO HS IVA Last Admin: 01/29/17 22:36 Dose: 80 mg Chlorhexidine Gluconate (Hibiclens For Decolonization -) 1 applic TP HS IVA Last Admin: 01/30/17 00:11 Dose: 1 applic Finasteride (Proscar -) 5 mg PO DAILY IVA Last Admin: 01/30/17 13:04 Dose: Not Given Heparin Sodium (Porcine) (Heparin -) 5,000 unit IVPUSH PRN PRN PRN Reason: Heparin Heparin Sodium/Dextrose (Heparin Infusion -) 25,000 units in 500 mls @ 20 mls/ hr IVPB TITR IVA; 1,000 UNITS/HR PRN Reason: Protocol Last Admin: 01/29/17 22:32 Dose: 1,000 units/hr, 20 mls/hr Mupirocin (Bactroban Ointment (For Decolonization) -) 1 applic NS BID IVA Stop: 02/03/17 21:59 Last Admin: 01/30/17 13:05 Dose: 1 applic Non-Formulary Medication (Imatinib Mesylate [Gleevec]) 400 mg PO DAILY IAV Constitutional: Yes: Awake and alert, NAD Eyes: Yes: WNL, Conjunctiva Clear, EOM Intact HENT: Yes: WNL, Atraumatic, Normocephalic Neck: Yes: WNL, Supple, Trachea Midline Cardiovascular: Yes: WNL, Regular Rate and Rhythm Respiratory: Yes: WNL, Regular, CTA Bilaterally Gastrointestinal: Yes: WNL, Normal Bowel Sounds ...Rectal Exam: Yes: Deferred Renal/: Yes: WNL Breast(s): Yes: WNL Musculoskeletal: Yes: WNL Extremities: Yes: Calf Tenderness, Other (LLE swollen) Edema: Yes Edema: LLE: 2+ Peripheral Pulses WNL: Yes Integumentary: Yes: WNL Neurological: Yes: WNL, Oriented ...Motor Strength: WNL Psychiatric: Yes: WNL, Alert, Oriented Labs: Laboratory Results - last 24 hr 01/29/17 01/29/17 01/29/17 15:40 15:40 15:40 WBC RBC Hgb Hct MCV MCH MCHC RDW Plt Count MPV Neutrophils % Lymphocytes % Monocytes % Eosinophils % Basophils % PT with INR 12.40 H INR 1.10 PTT (Actin FS) 34.3 D-Dimer Sodium 141 Potassium 4.2 Chloride 108 H Carbon Dioxide 24 Anion Gap 9 BUN 16 Creatinine 1.3 Creat Clearance w eGFR Random Glucose 86 Calcium 8.6 Phosphorus Magnesium Total Bilirubin AST ALT Alkaline Phosphatase Creatine Kinase 223 Creatine Kinase Index 2.9 CK-MB (CK-2) 6.451 H Troponin I 2.26 H* Total Protein Albumin Triglycerides Cholesterol Total LDL Cholesterol HDL Cholesterol TSH Urine Color Urine Appearance Urine pH Ur Specific [place] Urine Protein Urine Glucose (UA) Urine Ketones Urine Blood Urine Nitrite Urine Bilirubin Urine Urobilinogen Blood Type Antibody Screen 01/29/17 01/29/17 01/29/17 15:40 15:40 16:21 WBC RBC Hgb Hct MCV MCH MCHC RDW Plt Count MPV Neutrophils % Lymphocytes % Monocytes % Eosinophils % Basophils % PT with INR INR PTT (Actin FS) D-Dimer Sodium Potassium Chloride Carbon Dioxide Anion Gap BUN Creatinine Creat Clearance w eGFR Random Glucose Calcium Phosphorus Magnesium 2.2 Total Bilirubin AST ALT Alkaline Phosphatase Creatine Kinase Creatine Kinase Index CK-MB (CK-2) Cancelled Troponin I Total Protein Albumin Triglycerides Cholesterol Total LDL Cholesterol HDL Cholesterol TSH Urine Color Urine Appearance Urine pH Ur Specific [place] Urine Protein Urine Glucose (UA) Urine Ketones Urine Blood Urine Nitrite Urine Bilirubin Urine Urobilinogen Blood Type O NEGATIVE Antibody Screen Negative 01/29/17 01/29/17 01/30/17 21:30 23:25 04:00 WBC 8.7 D RBC 4.39 Hgb 13.3 D Hct 40.1 MCV 91.3 MCH 30.3 MCHC 33.2 RDW 14.1 D Plt Count 164 D MPV 8.2 D Neutrophils % 58.4 Lymphocytes % 31.1 D Monocytes % 8.2 Eosinophils % 2.0 Basophils % 0.3 PT with INR INR PTT (Actin FS) D-Dimer 4472 H Sodium Potassium Chloride Carbon Dioxide Anion Gap BUN Creatinine Creat Clearance w eGFR Random Glucose Calcium Phosphorus Magnesium Total Bilirubin AST ALT Alkaline Phosphatase Creatine Kinase Creatine Kinase Index CK-MB (CK-2) Troponin I 1.62 H* Total Protein Albumin Triglycerides Cholesterol Total LDL Cholesterol HDL Cholesterol TSH Urine Color Urine Appearance Urine pH Ur Specific [place] Urine Protein Urine Glucose (UA) Urine Ketones Urine Blood Urine Nitrite Urine Bilirubin Urine Urobilinogen Blood Type Antibody Screen 01/30/17 01/30/17 01/30/17 04:00 04:00 04:00 WBC RBC Hgb Hct MCV MCH MCHC RDW Plt Count MPV Neutrophils % Lymphocytes % Monocytes % Eosinophils % Basophils % PT with INR INR PTT (Actin FS) 56.7 H D D-Dimer Sodium 140 Potassium 4.1 Chloride 107 Carbon Dioxide 26 Anion Gap 7 L BUN 15 Creatinine 1.2 Creat Clearance w eGFR > 60 Random Glucose 95 Calcium 8.2 L Phosphorus 3.6 Magnesium 2.1 Total Bilirubin 0.4 D AST 17 ALT 28 Alkaline Phosphatase 58 Creatine Kinase Creatine Kinase Index CK-MB (CK-2) Troponin I Total Protein 6.3 L Albumin 3.3 L Triglycerides 78 Cholesterol 145 Total LDL Cholesterol 85 HDL Cholesterol 41 TSH 0.58 Urine Color Lt. yellow Urine Appearance Clear Urine pH 6.5 Ur Specific [place] 1.010 Urine Protein Negative Urine Glucose (UA) Negative Urine Ketones Negative Urine Blood Negative Urine Nitrite Negative Urine Bilirubin Negative Urine Urobilinogen 0.2 Blood Type Antibody Screen 01/30/17 01/30/17 04:00 04:00 WBC RBC Hgb Hct MCV MCH MCHC RDW Plt Count MPV Neutrophils % Lymphocytes % Monocytes % Eosinophils % Basophils % PT with INR INR PTT (Actin FS) D-Dimer Sodium Potassium Chloride Carbon Dioxide Anion Gap BUN Creatinine Creat Clearance w eGFR Random Glucose Calcium Phosphorus Magnesium Total Bilirubin AST ALT Alkaline Phosphatase Creatine Kinase Creatine Kinase Index CK-MB (CK-2) Troponin I Total Protein Albumin Triglycerides Cancelled Cholesterol Cancelled Total LDL Cholesterol Cancelled HDL Cholesterol Cancelled TSH Cancelled Urine Color Urine Appearance Urine pH Ur Specific [place] Urine Protein Urine Glucose (UA) Urine Ketones Urine Blood Urine Nitrite Urine Bilirubin Urine Urobilinogen Blood Type Antibody Screen Problem List (1) Pulmonary embolism Code(s): I26.99 - OTHER PULMONARY EMBOLISM WITHOUT ACUTE COR PULMONALE (2) CML (3) BPH (4) LLE DVT and PE Assessment/Plan Supplemental O2 to keep saturation > 92% Incentive Spirometry IV Heparin IVF IR evaluation for possible catheter directed procedure Dr Miller Critical care time spent in reviewing chart, evaluating patient and formulating plan - 36 minutes.
--- NOTE | 2017-01-30 14:53 | EKG ---
Test Reason : Blood Pressure : / mmHG Vent. Rate : 059 BPM Atrial Rate : 059 BPM P-R Int : 148 ms QRS Dur : 086 ms QT Int : 470 ms P-R-T Axes : 063 097 049 degrees QTc Int : 465 ms SINUS BRADYCARDIA PROLONGED QT ABNORMAL ECG WHEN COMPARED WITH ECG OF 29-JAN-2017 16:02, NO SIGNIFICANT CHANGE WAS FOUND Confirmed by NICHOLE LUNA MD ([id number]) on 01/30/2017 2:52:39 PM Referred By: Confirmed By:NICHOLE LUNA MD
--- NOTE | 2017-01-30 15:02 | EKG ---
Test Reason : Blood Pressure : / mmHG Vent. Rate : 074 BPM Atrial Rate : 074 BPM P-R Int : 142 ms QRS Dur : 088 ms QT Int : 406 ms P-R-T Axes : 076 090 042 degrees QTc Int : 450 ms NORMAL SINUS RHYTHM T WAVE ABNORMALITY, CONSIDER ANTERIOR ISCHEMIA ABNORMAL ECG WHEN COMPARED WITH ECG OF 29-JAN-2017 07:57, T WAVE INVERSION NOW EVIDENT IN ANTERIOR LEADS T WAVE INVERSION NO LONGER EVIDENT IN LATERAL LEADS Confirmed by NICHOLE LUNA MD ([id number]) on 01/30/2017 3:02:13 PM Referred By: Dk BURGOS Confirmed By:NICHOLE LUNA MD
--- NOTE | 2017-01-30 15:21 | PN ---
Physical Exam: SUBJECTIVE: The patient is a 56M with a PMH of CML x 4 years ago, in remission, who was found to have b/l PE's of moderately large size after a long car trip. He also had a syncopal episode which brought him to the hospital. His echo shows RV strain. He has no current complaints and states that he feels much better. He is hemodynamically stable. He denies fever, chills, nausea, vomiting, CP, SOB. OBJECTIVE: Vital Signs Period Temp Pulse Resp BP Sys/Correa Pulse Ox Last 24 Hr 97.3 F-98.8 F 62-78 13-24 115-144/69-93 96-100 GENERAL: The patient is awake, alert, and fully oriented, in no acute distress. HEAD: Normal with no signs of trauma. EYES: PERRL, extraocular movements intact, sclera anicteric, conjunctiva clear. No ptosis. NECK: Trachea midline, full range of motion, supple. LUNGS: Breath sounds equal, clear to auscultation bilaterally, no wheezes, no crackles, no accessory muscle use. HEART: Regular rate and rhythm, S1, S2 without murmur, rub or gallop. ABDOMEN: Soft, nontender, nondistended, normoactive bowel sounds, no guarding, no rebound, no hepatosplenomegaly, no masses. EXTREMITIES: 2+ pulses, warm, well-perfused, no edema. NEUROLOGICAL: Cranial nerves II through XII grossly intact. Normal speech, gait not observed. PSYCH: Normal mood, normal affect. SKIN: Warm, dry, normal turgor, no rashes or lesions noted Laboratory Results - last 24 hr 01/29/17 01/29/17 01/29/17 15:40 15:40 15:40 WBC RBC Hgb Hct MCV MCH MCHC RDW Plt Count MPV Neutrophils % Lymphocytes % Monocytes % Eosinophils % Basophils % PT with INR 12.40 H INR 1.10 PTT (Actin FS) 34.3 D-Dimer Sodium 141 Potassium 4.2 Chloride 108 H Carbon Dioxide 24 Anion Gap 9 BUN 16 Creatinine 1.3 Creat Clearance w eGFR Random Glucose 86 Calcium 8.6 Phosphorus Magnesium Total Bilirubin AST ALT Alkaline Phosphatase Creatine Kinase 223 Creatine Kinase Index 2.9 CK-MB (CK-2) 6.451 H Troponin I 2.26 H* Total Protein Albumin Triglycerides Cholesterol Total LDL Cholesterol HDL Cholesterol TSH Urine Color Urine Appearance Urine pH Ur Specific [place] Urine Protein Urine Glucose (UA) Urine Ketones Urine Blood Urine Nitrite Urine Bilirubin Urine Urobilinogen Blood Type Antibody Screen 01/29/17 01/29/17 01/29/17 15:40 15:40 16:21 WBC RBC Hgb Hct MCV MCH MCHC RDW Plt Count MPV Neutrophils % Lymphocytes % Monocytes % Eosinophils % Basophils % PT with INR INR PTT (Actin FS) D-Dimer Sodium Potassium Chloride Carbon Dioxide Anion Gap BUN Creatinine Creat Clearance w eGFR Random Glucose Calcium Phosphorus Magnesium 2.2 Total Bilirubin AST ALT Alkaline Phosphatase Creatine Kinase Creatine Kinase Index CK-MB (CK-2) Cancelled Troponin I Total Protein Albumin Triglycerides Cholesterol Total LDL Cholesterol HDL Cholesterol TSH Urine Color Urine Appearance Urine pH Ur Specific [place] Urine Protein Urine Glucose (UA) Urine Ketones Urine Blood Urine Nitrite Urine Bilirubin Urine Urobilinogen Blood Type O NEGATIVE Antibody Screen Negative 01/29/17 01/29/17 01/30/17 21:30 23:25 04:00 WBC 8.7 D RBC 4.39 Hgb 13.3 D Hct 40.1 MCV 91.3 MCH 30.3 MCHC 33.2 RDW 14.1 D Plt Count 164 D MPV 8.2 D Neutrophils % 58.4 Lymphocytes % 31.1 D Monocytes % 8.2 Eosinophils % 2.0 Basophils % 0.3 PT with INR INR PTT (Actin FS) D-Dimer 4472 H Sodium Potassium Chloride Carbon Dioxide Anion Gap BUN Creatinine Creat Clearance w eGFR Random Glucose Calcium Phosphorus Magnesium Total Bilirubin AST ALT Alkaline Phosphatase Creatine Kinase Creatine Kinase Index CK-MB (CK-2) Troponin I 1.62 H* Total Protein Albumin Triglycerides Cholesterol Total LDL Cholesterol HDL Cholesterol TSH Urine Color Urine Appearance Urine pH Ur Specific [place] Urine Protein Urine Glucose (UA) Urine Ketones Urine Blood Urine Nitrite Urine Bilirubin Urine Urobilinogen Blood Type Antibody Screen 01/30/17 01/30/17 01/30/17 04:00 04:00 04:00 WBC RBC Hgb Hct MCV MCH MCHC RDW Plt Count MPV Neutrophils % Lymphocytes % Monocytes % Eosinophils % Basophils % PT with INR INR PTT (Actin FS) 56.7 H D D-Dimer Sodium 140 Potassium 4.1 Chloride 107 Carbon Dioxide 26 Anion Gap 7 L BUN 15 Creatinine 1.2 Creat Clearance w eGFR > 60 Random Glucose 95 Calcium 8.2 L Phosphorus 3.6 Magnesium 2.1 Total Bilirubin 0.4 D AST 17 ALT 28 Alkaline Phosphatase 58 Creatine Kinase Creatine Kinase Index CK-MB (CK-2) Troponin I Total Protein 6.3 L Albumin 3.3 L Triglycerides 78 Cholesterol 145 Total LDL Cholesterol 85 HDL Cholesterol 41 TSH 0.58 Urine Color Lt. yellow Urine Appearance Clear Urine pH 6.5 Ur Specific [place] 1.010 Urine Protein Negative Urine Glucose (UA) Negative Urine Ketones Negative Urine Blood Negative Urine Nitrite Negative Urine Bilirubin Negative Urine Urobilinogen 0.2 Blood Type Antibody Screen 01/30/17 01/30/17 04:00 04:00 WBC RBC Hgb Hct MCV MCH MCHC RDW Plt Count MPV Neutrophils % Lymphocytes % Monocytes % Eosinophils % Basophils % PT with INR INR PTT (Actin FS) D-Dimer Sodium Potassium Chloride Carbon Dioxide Anion Gap BUN Creatinine Creat Clearance w eGFR Random Glucose Calcium Phosphorus Magnesium Total Bilirubin AST ALT Alkaline Phosphatase Creatine Kinase Creatine Kinase Index CK-MB (CK-2) Troponin I Total Protein Albumin Triglycerides Cancelled Cholesterol Cancelled Total LDL Cholesterol Cancelled HDL Cholesterol Cancelled TSH Cancelled Urine Color Urine Appearance Urine pH Ur Specific [place] Urine Protein Urine Glucose (UA) Urine Ketones Urine Blood Urine Nitrite Urine Bilirubin Urine Urobilinogen Blood Type Antibody Screen Active Medications Generic Name Dose Route Start Last Admin Trade Name Freq PRN Reason Stop Dose Admin Atorvastatin Calcium 80 mg 01/29/17 22:30 01/29/17 22:36 Lipitor - PO 80 mg HS IVA Administration Chlorhexidine Gluconate 1 applic 01/29/17 22:00 01/30/17 00:11 Hibiclens For Decolonization - TP 1 applic HS IVA Administration Finasteride 5 mg 01/30/17 10:00 01/30/17 13:04 Proscar - PO Not Given DAILY IVA Heparin Sodium (Porcine) 5,000 unit 01/29/17 22:00 Heparin - IVPUSH PRN PRN Heparin Heparin Sodium/Dextrose 25,000 units in 500 mls @ 20 mls/hr 01/29/17 22:00 22:32 Heparin Infusion - IVPB 1,000 units/hr TITR IVA 20 mls/hr Protocol Administration 1,000 UNITS/HR Alteplase, Recombinant 25 mg/ 250 mls @ 5 mls/hr 01/30/17 15:30 Sodium Chloride IVPB 02/01/17 17:29 ONCE ONE Alteplase, Recombinant 25 mg/ 250 mls @ 5 mls/hr 01/30/17 15:40 Sodium Chloride IVPB 02/01/17 17:39 ONCE ONE Mupirocin 1 applic 01/29/17 22:00 01/30/17 13:05 Bactroban Ointment (For Decolonization) - NS 02/03/17 21:59 1 applic BID IVA Administration Non-Formulary Medication 400 mg 01/30/17 10:00 Imatinib Mesylate [Gleevec] PO DAILY [facility] ASSESSMENT/PLAN: The patient is a 56M with a PMH of CML in remission who has b/l PE's with RV strain likely provoked after a long car trip. Neuro: - At baseline CV: RV strain 2/2 PE; submassive - Continue to monitor for CV stability - Currently stable Pulm: B/l PE's - On heparin drip - Consult IR for direct TPA candidacy PPX: - Heparin drip FEN (Fluids, electrolytes, nutrition): - NPO at midnight Dispo: - Continue to monitor in ICU Visit type - Emergency Visit Emergency Visit: Yes ED Registration Date: 01/30/17 Care time: The patient presented to the Emergency Department on the above date and was hospitalized for further evaluation of their emergent condition. - New Patient This patient is new to me today: Yes Date on this admission: 01/30/17 - Critical Care Critical Care patient: Yes Total Critical Care Time (in minutes): 39 Critical Care Statement: The care of this patient involved high complexity decision making to prevent further life threatening deterioration of the patient 's condition and/or to evaluate & treat vital organ system(s) failure or risk of failure.
[2017-01-30] MEDS ORDERED: ALTEPLASE 50MG 25 MG in SODIUM CHLORIDE 250 ML IVPB ONE ×2 (15:30→15:40)
[2017-01-30] MEDS ORDERED: ALTEPLASE 50 MG VIAL IVPB ONE (15:40)
[2017-01-30] MEDS ORDERED: PT OWN MED DRAWER 7, Y5N ONE (15:43)
--- NOTE | 2017-01-30 16:15 | PN ---
Progress Note (short form) - Note Progress Note: Pt with b/l PE's with RH strain. Spoke to IR, pt is currently downstairs for thrombectomy. Will have catheters left in so pt can have tPA running locally. Will f/u Thank you Suki Choe MD PGY-1 ICU
--- NOTE | 2017-01-30 17:10 | EKG ---
Test Reason : Blood Pressure : / mmHG Vent. Rate : 073 BPM Atrial Rate : 073 BPM P-R Int : 150 ms QRS Dur : 090 ms QT Int : 392 ms P-R-T Axes : 073 089 110 degrees QTc Int : 431 ms NORMAL SINUS RHYTHM POSSIBLE LEFT ATRIAL ENLARGEMENT NONSPECIFIC ST AND T WAVE ABNORMALITY WHEN COMPARED WITH ECG OF 10-JUL-2012 20:53, ST NOW DEPRESSED IN ANTERIOR LEADS NONSPECIFIC T WAVE ABNORMALITY, WORSE IN INFERIOR LEADS T WAVE INVERSION NOW EVIDENT IN LATERAL LEADS Confirmed by MD CARMELO, JEAN PIERRE ([id number]) on 01/30/2017 5:09:53 PM Referred By: FALLON Confirmed By:JEAN PIERRE RHODES MD
[2017-01-30 19:04] LABS: URINE LEUK ESTERASE NEGATIVE (NEGATIVE)
[2017-01-30] MEDS: ATORVASTATIN CA 80 MG TABLET (FP) PO SCH (22:01)
--- NOTE | 2017-01-30 22:14 | PN ---
Progress Note (short form) - Note Progress Note: Patient seen and examined getting thrombolysis feels well Last Vital Signs Temp Pulse Resp BP Pulse Ox 98.6 F 62 16 125/73 100 01/30/17 06:00 01/30/17 20:00 01/30/17 20:00 01/30/17 20:00 01/30/17 20:24 Cor: RSR, No murmurs, No gallops Lungs: Clear to P&A Abd: Soft, Normal bowel sounds, No organomegaly Ext:No significant edema Abnormal Lab Results 01/29/17 01/30/17 01/30/17 23:25 04:00 04:00 PTT (Actin FS) 56.7 H D D-Dimer 4472 H Anion Gap 7 L Calcium 8.2 L Total Protein 6.3 L Albumin 3.3 L Active Medications Atorvastatin Calcium (Lipitor -) 80 mg PO HS IVA Last Admin: 01/30/17 22:01 Dose: 80 mg Chlorhexidine Gluconate (Hibiclens For Decolonization -) 1 applic TP HS [facility] Last Admin: 01/30/17 22:02 Dose: Not Given Finasteride (Proscar -) 5 mg PO DAILY [facility] Last Admin: 01/30/17 13:04 Dose: Not Given Heparin Sodium (Porcine) (Heparin -) 5,000 unit IVPUSH PRN PRN PRN Reason: Heparin Heparin Sodium/Dextrose (Heparin Infusion -) 25,000 units in 500 mls @ 20 mls/ hr IVPB TITR IVA; 1,000 UNITS/HR PRN Reason: Protocol Last Admin: 01/29/17 22:32 Dose: 1,000 units/hr, 20 mls/hr Alteplase, Recombinant 25 mg/ (Sodium Chloride) 250 mls @ 5 mls/hr IVPB ONCE ONE Stop: 02/01/17 17:29 Last Admin: 01/30/17 20:32 Dose: Not Given Alteplase, Recombinant 25 mg/ (Sodium Chloride) 250 mls @ 5 mls/hr IVPB ONCE ONE Stop: 02/01/17 17:39 Last Admin: 01/30/17 20:32 Dose: Not Given Mupirocin (Bactroban Ointment (For Decolonization) -) 1 applic NS BID IVA Stop: 02/03/17 21:59 Last Admin: 01/30/17 22:02 Dose: 1 applic Non-Formulary Medication (Imatinib Mesylate [Gleevec]) 400 mg PO DAILY@0800 IVA a/p 56 y/o patient with cml, provoked dvt/pe b/l pe with rt. heart strain getting thrombolysis monitor closely follow IR recommendations
[2017-01-31] MEDS: HEPARIN INFUSION - 25,000 UNITS/500 ML INFUS.BAG IVPB SCH ×2 (03:27→21:59)
[2017-01-31 06:31] LABS: BASO % 0.3 % (0-2.0); EOS % 2.2 % (0-4.5); MCH 30.4 pg (25.7-33.7); MCHC 33.1 g/dl (32.0-35.9); MEAN CELL VOLUME 91.9 fl (80-96); MEAN PLT VOLUME 8.5 fl (7.5-11.1); PLATELET COUNT 179 K/MM3 (134-434); RDW 13.9 % (11.9-15.9); WHITE BLOOD COUNT 6.9 K/mm3 (4.0-10.0)
[2017-01-31] MEDS: CHLORHEXIDINE GLUCONATE 4% CLEANSER FOR DECOLONIZATION TP SCH ×2 (06:48→21:59)
[2017-01-31 06:52] LABS: ALBUMIN 3.2 g/dl (3.4-5.0); ANION GAP 8 (8-16); CALCIUM 8.2 mg/dL (8.5-10.1); CO2 25 mmol/L (21-32); MAGNESIUM 2.2 mg/dL (1.8-2.4)
[2017-01-31 06:56] LABS: ALK PHOS 62 U/L (45-117); BILIRUBIN,TOTAL 0.7 mg/dL (0.2-1.0); CREATININE 1.1 mg/dL (0.7-1.3); GLUCOSE,RANDOM 98 mg/dL (74-106); PHOSPHOROUS 4.1 mg/dL (2.5-4.9); SGOT/AST 21 U/L (15-37); SGPT/ALT 28 U/L (12-78); TOT PROT 6.4 g/dl (6.4-8.2)
--- NOTE | 2017-01-31 08:42 | PN ---
Physical Exam: SUBJECTIVE: Patient seen and examined at the bedside. Recalls the events that led him to the hospital, and remembers having shortness of breath with minimal exertion, left leg pain and generally weaker. Attributed all his symptoms to overworking and traveling. OBJECTIVE: On a heparin drip Vitals stable, pt denies chest pain, no shortness of breath presently. Vital Signs Period Temp Pulse Resp BP Sys/Correa Pulse Ox Last 24 Hr 97.8 F-98.3 F 57-98 16-28 117-150/70-89 96-100 GENERAL: The patient is awake, alert, and fully oriented, in no acute distress. HEAD: Normal with no signs of trauma. EYES: PERRL, extraocular movements intact, sclera anicteric, conjunctiva clear. No ptosis. ENT: Ears normal, nares patent, oropharynx clear without exudates, moist mucous membranes. NECK: Trachea midline, full range of motion, supple. LUNGS: Breath sounds equal, clear to auscultation bilaterally, no wheezes, no crackles, no accessory muscle use. HEART: Regular rate and rhythm ABDOMEN: Soft, nontender, nondistended, normoactive bowel sounds, no guarding, no rebound, no hepatosplenomegaly, no masses. EXTREMITIES: Left leg with mild edema below the knee, minimal pain behind left knee, right leg no edema NEUROLOGICAL: Normal speech, on bedrest PSYCH: Normal mood, normal affect. SKIN: Warm, dry, normal turgor, no rashes or lesions noted Laboratory Results - last 24 hr 01/30/17 01/30/17 01/31/17 04:00 04:00 06:05 WBC RBC Hgb Hct MCV MCH MCHC RDW Plt Count MPV Neutrophils % Lymphocytes % Monocytes % Eosinophils % Basophils % PTT (Actin FS) 53.0 H Sodium Potassium Chloride Carbon Dioxide Anion Gap BUN Creatinine Creat Clearance w eGFR Random Glucose Calcium Phosphorus Magnesium Total Bilirubin AST ALT Alkaline Phosphatase Total Protein Albumin Triglycerides 78 Cholesterol 145 Total LDL Cholesterol 85 HDL Cholesterol 41 TSH 0.58 Ur Leukocyte Esterase Negative 01/31/17 01/31/17 06:05 06:05 WBC 6.9 RBC 4.49 Hgb 13.7 Hct 41.3 MCV 91.9 MCH 30.4 MCHC 33.1 RDW 13.9 Plt Count 179 MPV 8.5 Neutrophils % 66.0 Lymphocytes % 22.9 D Monocytes % 8.6 Eosinophils % 2.2 Basophils % 0.3 PTT (Actin FS) Sodium 138 Potassium 4.4 Chloride 105 Carbon Dioxide 25 Anion Gap 8 BUN 17 Creatinine 1.1 Creat Clearance w eGFR > 60 Random Glucose 98 Calcium 8.2 L Phosphorus 4.1 Magnesium 2.2 Total Bilirubin 0.7 D AST 21 D ALT 28 Alkaline Phosphatase 62 Total Protein 6.4 Albumin 3.2 L Triglycerides Cholesterol Total LDL Cholesterol HDL Cholesterol TSH Ur Leukocyte Esterase Active Medications Generic Name Dose Route Start Last Admin Trade Name Freq PRN Reason Stop Dose Admin Atorvastatin Calcium 80 mg 01/29/17 22:30 01/30/17 22:01 Lipitor - PO 80 mg HS [facility] Administration Chlorhexidine Gluconate 1 applic 01/29/17 22:00 01/31/17 06:48 Hibiclens For Decolonization - TP 1 applic HS IVA Administration Finasteride 5 mg 01/30/17 10:00 01/30/17 13:04 Proscar - PO Not Given DAILY [facility] Heparin Sodium (Porcine) 5,000 unit 01/29/17 22:00 Heparin - IVPUSH PRN PRN Heparin Heparin Sodium/Dextrose 25,000 units in 500 mls @ 20 mls/hr 01/29/17 22:00 03:27 Heparin Infusion - IVPB Not Given TITR [facility] Protocol 1,000 UNITS/HR Alteplase, Recombinant 25 mg/ 250 mls @ 5 mls/hr 01/30/17 15:30 Sodium Chloride IVPB 02/01/17 17:29 ONCE ONE Alteplase, Recombinant 25 mg/ 250 mls @ 5 mls/hr 01/30/17 15:40 Sodium Chloride IVPB 02/01/17 17:39 ONCE ONE Mupirocin 1 applic 01/29/17 22:00 01/30/17 22:02 Bactroban Ointment (For Decolonization) - NS 02/03/17 21:59 1 applic BID IVA Administration Non-Formulary Medication 400 mg 01/30/17 08:00 Imatinib Mesylate [Gleevec] PO DAILY@0800 [facility] ASSESSMENT/PLAN: Patient is a 56 year old male with a significant past medical history of CML diagnosed 4 years ago and is currently in remission. 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 Anne. Patient was in his usual state of health, but after a long car trip he reports feeling weaker, more short of breath and reported having left calf pain. On admission he was found to have bilateral pulmonary embolis of moderately large size and a left leg DVT. On exam in the ICU the patient is awake, alert and in no acute distress. Denies shortness of breath or chest pressure. Overnight, he went for a direct- catheter thrombectomy but the procedure was stopped when patient went into [facility]. Imagin/10 US LLE: partially occlusive thrombus of left popliteal and posterior tibial veins 04/01 CTA: bilateral pulmonary emboli right and left main pulmonary arteries extending into all lobar, segmental, and subsegmental branches bilaterally; right heart relatively prominent in size with flattening of the interventricular septum 04/01 Echo: impaired LV relaxation; RV moderately dilated, RV systolic function moderately reduced; no ASD; mild MR; moderate TR Pulmonary: Provoked DVT likely secondary to recent car travel Has history of CML, currently in remission Bilateral PEs Continue to monitor cardiac function On a Heparin drip, bridge to coumadin Attempted IR direct thrombectomy, 5ml TPA placed but procedure discontinued after vta On supplemental oxygen as needed DVT on left leg Cardiology RV strain secondary to PE Continue to monitor cardiovascular status Currently stable Cardiology following Prophylaxis: Heparin drip Renal: ASHLEY Resolving, creatinine 1.1: at baseline Trend Neuro At baseline neurologically Syncope prior to admission secondary to submassive PE CT head negative Hematology Chronic myeloid leukemia In remission, heme following On Gleevac Visit type - Emergency Visit Emergency Visit: Yes ED Registration Date: 01/30/17 Care time: The patient presented to the Emergency Department on the above date and was hospitalized for further evaluation of their emergent condition. - New Patient This patient is new to me today: Yes Date on this admission: 01/31/17 - Critical Care Critical Care patient: Yes Total Critical Care Time (in minutes): 60 Critical Care Statement: The care of this patient involved high complexity decision making to prevent further life threatening deterioration of the patient 's condition and/or to evaluate & treat vital organ system(s) failure or risk of failure. - Discharge Referral Referred to [facility] No
[2017-01-31] MEDS ORDERED: PT OWN MED DRAWER 7, Y5N ONE (09:39)
--- NOTE | 2017-01-31 10:10 | PN ---
Progress Note (short form) - Note Progress Note: Patient seen and examined he denies chest pain, SOB, headache, no further palpitations On review, noted that he had 6 runs of vtach. O/E: Cor: RSR, No murmurs, No gallops Lungs: Clear to P&A Abd: Soft, Normal bowel sounds, No organomegaly Ext:No significant edema Last Vital Signs Temp Pulse Resp BP Pulse Ox 97.8 F 56 L 16 131/87 100 01/31/17 06:00 01/31/17 09:54 01/31/17 09:54 01/31/17 09:54 01/30/17 20:24 CBC, BMP 01/31/17 06:05 01/31/17 06:05 Current Medications Generic Name Dose Route Start Last Admin Trade Name Freq PRN Reason Stop Dose Admin Atorvastatin Calcium 80 mg 01/29/17 22:30 01/30/17 22:01 Lipitor - PO 80 mg HS IVA Administration Chlorhexidine Gluconate 1 applic 01/29/17 22:00 01/31/17 06:48 Hibiclens For Decolonization - TP 1 applic HS IVA Administration Finasteride 5 mg 01/30/17 10:00 01/30/17 13:04 Proscar - PO Not Given DAILY IVA Heparin Sodium (Porcine) 5,000 unit 01/29/17 22:00 Heparin - IVPUSH PRN PRN Heparin Heparin Sodium/Dextrose 25,000 units in 500 mls @ 20 mls/hr 01/29/17 22:00 03:27 Heparin Infusion - IVPB Not Given TITR [facility] Protocol 1,000 UNITS/HR Alteplase, Recombinant 25 mg/ 250 mls @ 5 mls/hr 01/30/17 15:30 Sodium Chloride IVPB 02/01/17 17:29 ONCE ONE Alteplase, Recombinant 25 mg/ 250 mls @ 5 mls/hr 01/30/17 15:40 Sodium Chloride IVPB 02/01/17 17:39 ONCE ONE Mupirocin 1 applic 01/29/17 22:00 01/30/17 22:02 Bactroban Ointment (For Decolonization) - NS 02/03/17 21:59 1 applic BID IVA Administration Non-Formulary Medication 400 mg 01/30/17 08:00 Imatinib Mesylate [Gleevec] PO DAILY@0800 [facility] New DVT/PE: Likely provoked on heparin drip. PTT therapeutic did not receive tPA ?arrhythmia ?new, cardiology f/u check mag if no further procedures planned, will need to consider oral systemic anticoagulation. choice: for now would consider coumadin bridge (4days of bridge ) CML: In CHR, c/w Imatinib
[2017-01-31] MEDS: IMATINIB MESYLATE 400 MG PO SCH ×2 (11:21)
[2017-01-31] MEDS: MUPIROCIN 2% TOPICAL OINTMENT FOR DECOLONIZATION NS SCH ×2 (11:21→21:59)
[2017-01-31] MEDS: FINASTERIDE 5 MG TABLET (FP) PO SCH (11:34)
--- NOTE | 2017-01-31 14:03 | PN ---
Teaching Attending Note Name of Resident: Luis Antonio Davenport ATTENDING PHYSICIAN STATEMENT I saw and evaluated the patient. I reviewed the resident's note and discussed the case with the resident. I agree with the resident's findings and plan as documented. SUBJECTIVE: Patient seen and examined in the ICU. Awake and alert. Events noted. Multiple episodes of VT during attempted catheter directed procedure. Last episode of VT lasted 6 beats last evening. No SOB but reports some non-specific chest discomfort. Intake & Output 01/28/17 01/29/17 01/30/17 01/31/17 23:59 23:59 23:59 23:59 Intake Total 1580 460 216 Output Total 500 825 400 Balance 1080 -365 -184 Weight 198 lb 9.6 oz 200 lb 7 oz 219 lb 4 oz Last Vital Signs Temp Pulse Resp BP Pulse Ox 97.8 F 56 L 16 131/87 100 01/31/17 06:00 01/31/17 09:54 01/31/17 09:54 01/31/17 09:54 01/30/17 20:24 Active Medications Atorvastatin Calcium (Lipitor -) 80 mg PO HS IVA Last Admin: 01/30/17 22:01 Dose: 80 mg Chlorhexidine Gluconate (Hibiclens For Decolonization -) 1 applic TP HS IVA Last Admin: 01/31/17 06:48 Dose: 1 applic Finasteride (Proscar -) 5 mg PO DAILY IVA Last Admin: 01/31/17 11:34 Dose: 5 mg Heparin Sodium (Porcine) (Heparin -) 5,000 unit IVPUSH PRN PRN PRN Reason: Heparin Heparin Sodium/Dextrose (Heparin Infusion -) 25,000 units in 500 mls @ 20 mls/ hr IVPB TITR IVA; 1,000 UNITS/HR PRN Reason: Protocol Last Admin: 01/31/17 03:27 Dose: Not Given Alteplase, Recombinant 25 mg/ (Sodium Chloride) 250 mls @ 5 mls/hr IVPB ONCE ONE Stop: 02/01/17 17:29 Alteplase, Recombinant 25 mg/ (Sodium Chloride) 250 mls @ 5 mls/hr IVPB ONCE ONE Stop: 02/01/17 17:39 Mupirocin (Bactroban Ointment (For Decolonization) -) 1 applic NS BID IVA Stop: 02/03/17 21:59 Last Admin: 01/31/17 11:21 Dose: 1 applic Non-Formulary Medication (Imatinib Mesylate [Gleevec]) 400 mg PO DAILY@0800 IVA Last Admin: 01/31/17 11:21 Dose: 400 mg Constitutional: Yes: Awake and alert, NAD Eyes: Yes: WNL, Conjunctiva Clear, EOM Intact HENT: Yes: WNL, Atraumatic, Normocephalic Neck: Yes: WNL, Supple, Trachea Midline Cardiovascular: Yes: WNL, Regular Rate and Rhythm Respiratory: Yes: WNL, Regular, CTA Bilaterally Gastrointestinal: Yes: WNL, Normal Bowel Sounds ...Rectal Exam: Yes: Deferred Renal/: Yes: WNL Breast(s): Yes: WNL Musculoskeletal: Yes: WNL Extremities: Yes: Calf Tenderness, Other (LLE swollen) Edema: Yes Edema: LLE: 2+ Peripheral Pulses WNL: Yes Integumentary: Yes: WNL Neurological: Yes: WNL, Oriented ...Motor Strength: WNL Psychiatric: Yes: WNL, Alert, Oriented Labs: Laboratory Results - last 24 hr 01/30/17 01/31/17 01/31/17 04:00 06:05 06:05 WBC 6.9 RBC 4.49 Hgb 13.7 Hct 41.3 MCV 91.9 MCH 30.4 MCHC 33.1 RDW 13.9 Plt Count 179 MPV 8.5 Neutrophils % 66.0 Lymphocytes % 22.9 D Monocytes % 8.6 Eosinophils % 2.2 Basophils % 0.3 PTT (Actin FS) 53.0 H Sodium Potassium Chloride Carbon Dioxide Anion Gap BUN Creatinine Creat Clearance w eGFR Random Glucose Calcium Phosphorus Magnesium Total Bilirubin AST ALT Alkaline Phosphatase Total Protein Albumin Ur Leukocyte Esterase Negative 01/31/17 01/31/17 06:05 11:01 WBC RBC Hgb Hct MCV MCH MCHC RDW Plt Count MPV Neutrophils % Lymphocytes % Monocytes % Eosinophils % Basophils % PTT (Actin FS) Sodium 138 Potassium 4.4 Chloride 105 Carbon Dioxide 25 Anion Gap 8 BUN 17 Creatinine 1.1 Creat Clearance w eGFR > 60 Random Glucose 98 Calcium 8.2 L Phosphorus 4.1 Magnesium 2.2 2.2 Total Bilirubin 0.7 D AST 21 D ALT 28 Alkaline Phosphatase 62 Total Protein 6.4 Albumin 3.2 L Ur Leukocyte Esterase Problem List (1) Pulmonary embolism Code(s): I26.99 - OTHER PULMONARY EMBOLISM WITHOUT ACUTE COR PULMONALE (2) CML (3) BPH (4) LLE DVT and PE (5) VT Assessment/Plan IV Heparin. Will D/W Heme about oral AC options. Supplemental O2 to keep saturation > 92% Incentive Spirometry Cardiac Telemetry monitoring Dr Miller Critical care time spent in reviewing chart, evaluating patient and formulating plan - 40 minutes.
--- NOTE | 2017-01-31 14:44 | EKG ---
Test Reason : Blood Pressure : / mmHG Vent. Rate : 057 BPM Atrial Rate : 057 BPM P-R Int : 152 ms QRS Dur : 090 ms QT Int : 538 ms P-R-T Axes : 054 095 070 degrees QTc Int : 523 ms SINUS BRADYCARDIA RIGHTWARD AXIS PROLONGED QT ABNORMAL ECG WHEN COMPARED WITH ECG OF 30-JAN-2017 08:57, NO SIGNIFICANT CHANGE WAS FOUND Confirmed by ESTRELLITA ANDERSON, TATIANA ([id number]) on 01/31/2017 2:43:42 PM Referred By: , Confirmed By:TATIANA HARO MD
--- NOTE | 2017-01-31 14:57 | PN ---
Physical Exam: SUBJECTIVE: The patient is a 56M with a PMH of CML x 4 years ago, in remission, who was found to have b/l PE's of moderately large size after a long car trip. He also had a syncopal episode which brought him to the hospital. His echo shows RV strain. He has no current complaints and states that he feels much better. He is hemodynamically stable. Overnight, he went for a direct-catheter thrombectomy and went into v-fib each time the IR physician advanced the catheter past the RV , he went into asymptomatic v-tach. IR physician placed 5mL TPA in each pulmonary artery then aborted the procedure. He denies fever, chills, nausea, vomiting, CP, SOB. OBJECTIVE: Vital Signs Period Temp Pulse Resp BP Sys/Correa Pulse Ox Last 24 Hr 97.8 F-98.3 F 56-98 16-28 118-150/70-87 100-100 GENERAL: The patient is awake, alert, and fully oriented, in no acute distress. HEAD: Normal with no signs of trauma. EYES: PERRL, extraocular movements intact, sclera anicteric, conjunctiva clear. No ptosis. NECK: Trachea midline, full range of motion, supple. LUNGS: Breath sounds equal, clear to auscultation bilaterally, no wheezes, no crackles, no accessory muscle use. HEART: Regular rate and rhythm, S1, S2 without murmur, rub or gallop. ABDOMEN: Soft, nontender, nondistended, normoactive bowel sounds, no guarding, no rebound, no hepatosplenomegaly, no masses. EXTREMITIES: 2+ pulses, warm, well-perfused, no edema. NEUROLOGICAL: Cranial nerves II through XII grossly intact. Normal speech, gait not observed. PSYCH: Normal mood, normal affect. SKIN: Warm, dry, normal turgor, no rashes or lesions noted Laboratory Results - last 24 hr 01/30/17 01/31/17 01/31/17 04:00 06:05 06:05 WBC 6.9 RBC 4.49 Hgb 13.7 Hct 41.3 MCV 91.9 MCH 30.4 MCHC 33.1 RDW 13.9 Plt Count 179 MPV 8.5 Neutrophils % 66.0 Lymphocytes % 22.9 D Monocytes % 8.6 Eosinophils % 2.2 Basophils % 0.3 PTT (Actin FS) 53.0 H Sodium Potassium Chloride Carbon Dioxide Anion Gap BUN Creatinine Creat Clearance w eGFR Random Glucose Calcium Phosphorus Magnesium Total Bilirubin AST ALT Alkaline Phosphatase Total Protein Albumin Ur Leukocyte Esterase Negative 01/31/17 01/31/17 06:05 11:01 WBC RBC Hgb Hct MCV MCH MCHC RDW Plt Count MPV Neutrophils % Lymphocytes % Monocytes % Eosinophils % Basophils % PTT (Actin FS) Sodium 138 Potassium 4.4 Chloride 105 Carbon Dioxide 25 Anion Gap 8 BUN 17 Creatinine 1.1 Creat Clearance w eGFR > 60 Random Glucose 98 Calcium 8.2 L Phosphorus 4.1 Magnesium 2.2 2.2 Total Bilirubin 0.7 D AST 21 D ALT 28 Alkaline Phosphatase 62 Total Protein 6.4 Albumin 3.2 L Ur Leukocyte Esterase Active Medications Generic Name Dose Route Start Last Admin Trade Name Freq PRN Reason Stop Dose Admin Atorvastatin Calcium 80 mg 01/29/17 22:30 01/30/17 22:01 Lipitor - PO 80 mg HS IVA Administration Chlorhexidine Gluconate 1 applic 01/29/17 22:00 01/31/17 06:48 Hibiclens For Decolonization - TP 1 applic HS IVA Administration Finasteride 5 mg 01/30/17 10:00 01/31/17 11:34 Proscar - PO 5 mg DAILY IVA Administration Heparin Sodium (Porcine) 5,000 unit 01/29/17 22:00 Heparin - IVPUSH PRN PRN Heparin Heparin Sodium/Dextrose 25,000 units in 500 mls @ 20 mls/hr 01/29/17 22:00 03:27 Heparin Infusion - IVPB Not Given TITR [facility] Protocol 1,000 UNITS/HR Alteplase, Recombinant 25 mg/ 250 mls @ 5 mls/hr 01/30/17 15:30 Sodium Chloride IVPB 02/01/17 17:29 ONCE ONE Alteplase, Recombinant 25 mg/ 250 mls @ 5 mls/hr 01/30/17 15:40 Sodium Chloride IVPB 02/01/17 17:39 ONCE ONE Mupirocin 1 applic 01/29/17 22:00 01/31/17 11:21 Bactroban Ointment (For Decolonization) - NS 02/03/17 21:59 1 applic BID IVA Administration Non-Formulary Medication 400 mg 01/30/17 08:00 01/31/17 11:21 Imatinib Mesylate [Gleevec] PO 400 mg DAILY@0800 [facility] Administration ASSESSMENT/PLAN: The patient is a 56M with a PMH of CML in remission who has b/l PE's with RV strain likely provoked after a long car trip. Neuro: - At baseline CV: RV strain 2/2 PE; submassive - Continue to monitor for CV stability/v-tach on monitor - Currently stable Pulm: B/l PE's - On heparin drip - IR attempted direct-catheter thrombectomy, placed 5mL of TPA in each pulmonary artery then did not finish the procedure PPX: - Heparin drip FEN (Fluids, electrolytes, nutrition): - Regular diet Dispo: - T/f to tele Visit type - Emergency Visit Emergency Visit: Yes ED Registration Date: 01/30/17 Care time: The patient presented to the Emergency Department on the above date and was hospitalized for further evaluation of their emergent condition. - New Patient This patient is new to me today: No - Critical Care Critical Care patient: Yes Total Critical Care Time (in minutes): 37 Critical Care Statement: The care of this patient involved high complexity decision making to prevent further life threatening deterioration of the patient 's condition and/or to evaluate & treat vital organ system(s) failure or risk of failure.
--- NOTE | 2017-01-31 15:50 | PN ---
Progress Note (short form) - Note Progress Note: Coumadin bridge started today 5mg PO qd. F/u INR check daily Suki Choe MD PGY-1 ICU team
[2017-01-31] MEDS: WARFARIN NA 5 MG TABLET (UD) PO SCH (17:28)
--- NOTE | 2017-01-31 20:51 | PN ---
Progress Note (short form) - Note Progress Note: NEUROLOGY FOLLOW-UP: Coverage consultation of Dr. Salvador is greatly appreciated. This 56 you RH man with h/o CML on Gleevac is well-known to me for eval of neuropathy. Last week he had cough and new exertional dyspnea. On Monday AM he awoke with tightness and swelling in his left calf and knee with tenderness. His dyspnea increased shovelling snow but he developed chest pain after running up stairs with Increased SOB, "Dizziness" and witnessed. This recurred on arrival to [facility]. CT of head (reviewed): Normal W/U revealed B/L PE's and left leg DVT. S/P Thrombolysis. Now on Heparin and coumadin. EXAM: Breathing comfortably Left leg swelling improved NEUROLOGICAL exam is normal. IMP: Doing well after B/L PE,s from DVT Syncope x 2 due to cerebral hypoxemia. SUGGEST: No specific neuro Rx. Contdinue anticoagulation (x 6 mos?). R/O coagulopathy as per Dr. Engle. Thank you very much, Shane Gay MD
[2017-01-31] MEDS: ATORVASTATIN CA 80 MG TABLET (FP) PO SCH (21:59)
[2017-01-31] MEDS ORDERED: ALTEPLASE 50MG 25 MG in SODIUM CHLORIDE 250 ML IVPB ONE (22:41)
[2017-01-31] MEDS ORDERED: HEPARIN INFUSION - 25,000 UNITS/500 ML INFUS.BAG IVPB SCH (22:41)
[2017-01-31] MEDS ORDERED: HEPARIN NA (PORCINE) 5,000 UNITS/ML 1ML VIAL IVPUSH PRN ×3 (22:41)
[2017-01-31] MEDS ORDERED: ALTEPLASE 50 MG VIAL IVPB ONE (22:41)
--- NOTE | 2017-02-01 06:20 | PN ---
Progress Note, Physician Chief Complaint: Pt A&Ox3; at bedside. Pt denies chest pain, dyspnea; left LE feels less heavy. Mildly anxious that "they weren't able to take out the clot". History of Present Illness: 56 yr old black man with PMHx CML, BPH, presents to the ED after the acute onset of chest tightness and shortness of breath that began after shoveling snow today. Patient and report that he has been complaining of cough for the last week--was seen in urgent care and diagnosed with bronchitis. Awoke this morning with a subjective feeling of tightness in his left leg. Despite this, he was helping his shovel snow this morning. Patient did not experience chest tightness or shortness of breath while shoveling, but after going up and down the stairs quickly, he developed tightness in his chest and became short of breath. reports that he then collapsed and was briefly unconscious. On arrival to the ED, patient walked in with assistance from his , but then collapsed at the door of the ED. Did not lose consciousness and was able to get onto a stretcher with assistance. Patient and deny cardiac history. Had coronary angiogram (February of 2015 ) that showed nonobstructive CAD. Pt's says they had several long-distance car trips in the past few weeks, including round-trip to [place] within the past 10 days (pt was passenger ; they often did not get out of the car for hours). - Current Medication List Current Medications: Active Medications Atorvastatin Calcium (Lipitor -) 80 mg PO HS IVA Finasteride (Proscar -) 5 mg PO DAILY IVA Heparin Sodium (Porcine) (Heparin -) 5,000 unit IVPUSH PRN PRN PRN Reason: Heparin Heparin Sodium (Porcine) (Heparin -) 1,000 unit IVPUSH PRN PRN PRN Reason: Heparin Heparin Sodium/Dextrose (Heparin Infusion -) 25,000 units in 500 mls @ 20 mls/ hr IVPB TITR IVA; 1,000 UNITS/HR PRN Reason: Protocol Last Admin: 01/31/17 23:12 Dose: 1,000 units/hr, 20 mls/hr Non-Formulary Medication (Imatinib Mesylate [Gleevec]) 400 mg PO DAILY@0800 IVA Sodium Chloride ([place] Nasal [place] -) 2 spray NS TID PRN PRN Reason: NASAL CONGESTION Warfarin Sodium (Coumadin -) 5 mg PO DAILY@1800 IVA Last Admin: 01/31/17 17:28 Dose: 5 mg - Objective Vital Signs: Vital Signs Temperature 98.5 F 02/01/17 06:00 Pulse Rate 66 02/01/17 06:00 Respiratory Rate 18 02/01/17 06:00 Blood Pressure 118/76 02/01/17 06:00 O2 Sat by Pulse Oximetry (%) 95 01/31/17 21:00 Constitutional: Yes: Calm Eyes: Yes: WNL HENT: Yes: WNL Neck: Yes: WNL Cardiovascular: Yes: WNL, Murmur (2/6 systolic murmur, RSB-->apex), S1, S2 Respiratory: Yes: Diminished Gastrointestinal: Yes: Soft ...Rectal Exam: Yes: Deferred Genitourinary: Yes: Anuria Breast(s): Yes: WNL Musculoskeletal: Yes: Muscle Pain Extremities: Yes: Cool Edema: Yes Edema: LLE: 1+ Peripheral Pulses WNL: Yes Integumentary: Yes: WNL Neurological: Yes: WNL ...Motor Strength: WNL Psychiatric: Yes: Other (anxiety) Labs: CBC, BMP 01/31/17 06:05 01/31/17 06:05 INR, PTT INR 1.10 (0.82-1.09) 01/29/17 15:40 Abnormal Lab Results 01/31/17 01/31/17 06:05 06:05 PTT (Actin FS) 53.0 H Calcium 8.2 L Albumin 3.2 L - ....Imaging EKG: Image Reviewed (Sinus bradycardia; rightwar axis; prolonged QT) Other: Image Reviewed (telemetry: NSR; no arrhythmias) Problem List - Problems (1) Pulmonary embolism Assessment/Plan: Attempt at thrombectomy stopped due to arrhythmia inducement. Continue IV heparin until INR 2-3 on warfarin. Follow decision-making on final choice of anticoagulant with heme-onc. Code(s): I26.99 - OTHER PULMONARY EMBOLISM WITHOUT ACUTE COR PULMONALE (2) Syncope and collapse Assessment/Plan: likely secondary to consequences of large bilateral PE. Code(s): R55 - SYNCOPE AND COLLAPSE (3) Elevated troponin Assessment/Plan: 0l.02-->2.0-->1.6; normal CK/MB relative index. Mild TNI elevation likely from strain of PE. Hx patent coronary arteries on 02/2015 coronary angiogram. Continue statin. F/u EKG. Code(s): R74.8 - ABNORMAL LEVELS OF OTHER SERUM ENZYMES
[2017-02-01 06:51] LABS: BASO % 0.5 % (0-2.0); EOS % 2.8 % (0-4.5); MCH 30.6 pg (25.7-33.7); MCHC 33.6 g/dl (32.0-35.9); MEAN CELL VOLUME 91.3 fl (80-96); MEAN PLT VOLUME 8.4 fl (7.5-11.1); NEUT % 62.8 % (42.8-82.8); PLATELET COUNT 191 K/MM3 (134-434); RDW 13.6 % (11.9-15.9); WHITE BLOOD COUNT 6.7 K/mm3 (4.0-10.0)
[2017-02-01 06:59] LABS: INR 1.02 (0.82-1.09); PROTHROMBIN TIME (PATIENT) 11.5 SEC (9.98-11.88)
[2017-02-01 07:04] LABS: ALBUMIN 3.3 g/dl (3.4-5.0); ANION GAP 7 (8-16); CALCIUM 8.5 mg/dL (8.5-10.1); CO2 28 mmol/L (21-32); GLUCOSE,RANDOM 96 mg/dL (74-106)
[2017-02-01 07:09] LABS: ALK PHOS 61 U/L (45-117); BILIRUBIN,TOTAL 0.6 mg/dL (0.2-1.0); CREATININE 1.3 mg/dL (0.7-1.3); PHOSPHOROUS 3.6 mg/dL (2.5-4.9); SGOT/AST 24 U/L (15-37); SGPT/ALT 36 U/L (12-78); TOT PROT 6.4 g/dl (6.4-8.2)
[2017-02-01] MEDS: IMATINIB MESYLATE 400 MG PO SCH (08:00)
[2017-02-01] MEDS ORDERED: PT OWN MED DRAWER 7, Y5N ONE ×3 (08:31→19:55)
[2017-02-01] MEDS: FINASTERIDE 5 MG TABLET (FP) PO SCH (09:02)
[2017-02-01] MEDS: SODIUM CHLORIDE NASAL SPRAY 44 ML BOTTLE NS PRN (09:13)
[2017-02-01] MEDS ORDERED: MUPIROCIN 2% TOPICAL OINTMENT FOR DECOLONIZATION NS SCH (10:00)
--- NOTE | 2017-02-01 11:32 | PN ---
Progress Note, Physician History of Present Illness: 56 yr old black man with PMHx CML, BPH, presents to the ED after the acute onset of chest tightness and shortness of breath that began after shoveling snow today. Patient and report that he has been complaining of cough for the last week--was seen in urgent care and diagnosed with bronchitis. Awoke this morning with a subjective feeling of tightness in his left leg. Despite this, he was helping his shovel snow this morning. Patient did not experience chest tightness or shortness of breath while shoveling, but after going up and down the stairs quickly, he developed tightness in his chest and became short of breath. reports that he then collapsed and was briefly unconscious. On arrival to the ED, patient walked in with assistance from his , but then collapsed at the door of the ED. Did not loose consciousness and was able to get onto a stretcher with assistance. Patient and deny cardiac history. Had coronary angiogram (?February of 2016 ) that was reportedly showed nonobstructive CAD. Pt's says they had several long-distance car trips in the past few weeks, including round-trip to [place] within the past 10 days (pt was passenger ; they often did not get out of the car for hours). - Current Medication List Current Medications: Active Medications Atorvastatin Calcium (Lipitor -) 80 mg PO HS IVA Finasteride (Proscar -) 5 mg PO DAILY IVA Last Admin: 02/01/17 09:02 Dose: 5 mg Heparin Sodium (Porcine) (Heparin -) 5,000 unit IVPUSH PRN PRN PRN Reason: Heparin Heparin Sodium (Porcine) (Heparin -) 1,000 unit IVPUSH PRN PRN PRN Reason: Heparin Heparin Sodium/Dextrose (Heparin Infusion -) 25,000 units in 500 mls @ 20 mls/ hr IVPB TITR IVA; 1,000 UNITS/HR PRN Reason: Protocol Last Titration: 02/01/17 08:00 Dose: 1,000 units/hr, 20 mls/hr Non-Formulary Medication (Imatinib Mesylate [Gleevec]) 400 mg PO DAILY@0800 IVA Last Admin: 02/01/17 08:00 Dose: 400 mg Sodium Chloride ([place] Nasal [place] -) 2 spray NS TID PRN PRN Reason: NASAL CONGESTION Last Admin: 02/01/17 09:13 Dose: 2 sprays Warfarin Sodium (Coumadin -) 5 mg PO DAILY@1800 IVA Last Admin: 01/31/17 17:28 Dose: 5 mg - Objective Vital Signs: Vital Signs Temperature 98.1 F 02/01/17 09:36 Pulse Rate 62 02/01/17 10:34 Respiratory Rate 18 02/01/17 08:00 Blood Pressure 116/72 02/01/17 08:00 O2 Sat by Pulse Oximetry (%) 100 02/01/17 10:34 Eyes: Yes: WNL, Conjunctiva Clear, EOM Intact HENT: Yes: WNL, Atraumatic, Normocephalic Neck: Yes: WNL, Supple, Trachea Midline Cardiovascular: Yes: WNL, Regular Rate and Rhythm Respiratory: Yes: WNL, Regular, CTA Bilaterally Gastrointestinal: Yes: WNL, Normal Bowel Sounds Genitourinary: Yes: WNL Musculoskeletal: Yes: WNL Extremities: Yes: WNL Edema: No Integumentary: Yes: WNL Neurological: Yes: WNL, Alert, Oriented ...Motor Strength: WNL Psychiatric: Yes: WNL Labs: CBC, BMP 02/01/17 06:20 02/01/17 06:20 INR, PTT INR 1.02 (0.82-1.09) 02/01/17 06:20 Assessment/Plan - Problems (1) Pulmonary embolism Assessment/Plan: Attempt at thrombectomy stopped due to arrhythmia inducement. Continue IV heparin until INR 2-3 on warfarin. Follow decision-making on final choice of anticoagulant with heme-onc. Code(s): I26.99 - OTHER PULMONARY EMBOLISM WITHOUT ACUTE COR PULMONALE (2) Syncope and collapse Assessment/Plan: likely secondary to consequences of large bilateral PE. Code(s): R55 - SYNCOPE AND COLLAPSE (3) Elevated troponin Assessment/Plan: 0l.02-->2.0-->1.6; normal CK/MB relative index. Mild TNI elevation likely from strain of PE. Hx patent coronary arteries on 02/2015 coronary angiogram. Continue statin. F/u EKG. Code(s): R74.8 - ABNORMAL LEVELS OF OTHER SERUM ENZYMES cc time spent 37 min
--- NOTE | 2017-02-01 11:38 | EKG ---
Test Reason : Blood Pressure : / mmHG Vent. Rate : 057 BPM Atrial Rate : 057 BPM P-R Int : 154 ms QRS Dur : 086 ms QT Int : 522 ms P-R-T Axes : 004 105 085 degrees QTc Int : 508 ms SINUS BRADYCARDIA RIGHTWARD AXIS PROLONGED QT ABNORMAL ECG WHEN COMPARED WITH ECG OF 31-JAN-2017 08:39, NO SIGNIFICANT CHANGE WAS FOUND Confirmed by TATIANA HARO MD ([id number]) on 02/01/2017 11:37:46 AM Referred By: LAURA RUDD DR Confirmed By:TATIANA HARO MD
--- NOTE | 2017-02-01 12:41 | PN ---
Teaching Attending Note Name of Resident: Indira Staples ATTENDING PHYSICIAN STATEMENT I saw and evaluated the patient. I reviewed the resident's note and discussed the case with the resident. I agree with the resident's findings and plan as documented. SUBJECTIVE: Pt seen and examined in the ICU. Denies shortness of breath or chest pain. OBJECTIVE: Last Vital Signs Temp Pulse Resp BP Pulse Ox 97.3 F L 62 18 117/91 100 02/01/17 12:00 02/01/17 12:00 02/01/17 12:00 02/01/17 12:00 02/01/17 10:34 Intake & Output 01/29/17 01/30/17 01/31/17 02/01/17 23:59 23:59 23:59 23:59 Intake Total 1580 460 516 440 Output Total 500 825 400 600 Balance 1080 -365 116 -160 Weight 198 lb 9.6 oz 200 lb 7 oz 219 lb 4 oz 204 lb 0.1 oz Gen: NAD at rest Heart: RRR Lung: decreased breath sounds at the bases Abd: soft, nontender Ext: no edema CBC, BMP 02/01/17 06:20 02/01/17 06:20 Active Medications Atorvastatin Calcium (Lipitor -) 80 mg PO HS IVA Finasteride (Proscar -) 5 mg PO DAILY COUNTS INCLUDE 234 BEDS AT THE [facility] Last Admin: 02/01/17 09:02 Dose: 5 mg Heparin Sodium (Porcine) (Heparin -) 5,000 unit IVPUSH PRN PRN PRN Reason: Heparin Heparin Sodium (Porcine) (Heparin -) 1,000 unit IVPUSH PRN PRN PRN Reason: Heparin Heparin Sodium/Dextrose (Heparin Infusion -) 25,000 units in 500 mls @ 20 mls/ hr IVPB TITR IVA; 1,000 UNITS/HR PRN Reason: Protocol Last Titration: 02/01/17 08:00 Dose: 1,000 units/hr, 20 mls/hr Non-Formulary Medication (Imatinib Mesylate [Gleevec]) 400 mg PO DAILY@0800 COUNTS INCLUDE 234 BEDS AT THE [facility] Last Admin: 02/01/17 08:00 Dose: 400 mg Sodium Chloride ([place] Nas[place] -) 2 spray NS TID PRN PRN Reason: NASAL CONGESTION Last Admin: 02/01/17 09:13 Dose: 2 sprays Warfarin Sodium (Coumadin -) 5 mg PO DAILY@1800 COUNTS INCLUDE 234 BEDS AT THE [facility] Last Admin: 01/31/17 17:28 Dose: 5 mg ASSESSMENT AND PLAN: Acute Pulmonary Emboli LLE DVT Right Heart Strain Chronic Myeloid Leukemia - continue anticoagulation, transition to oral agent - O2 as needed - OOB to chair - can monitor on floor
--- NOTE | 2017-02-01 16:26 | PN ---
Physical Exam: SUBJECTIVE: Patient seen and examined Patient resting in bed NAD. afebrile and hemodynamically stable. Na acute events. Deneis cp, papitations, sob, cough, hempptysis, hematuria, melena, hematochezia, bleeding, h/a. OBJECTIVE: Vital Signs Period Temp Pulse Resp BP Sys/Correa Pulse Ox Last 24 Hr 97.3 F-98.9 F 58-79 15-18 116-136/72-91 95-100 GENERAL: The patient is awake, alert, and fully oriented, in no acute distress. HEAD: Normal with no signs of trauma. EYES: PERRL, extraocular movements intact, sclera anicteric, conjunctiva clear. No ptosis. ENT: moist mucous membranes. NECK: supple. LUNGS: Breath sounds equal, clear to auscultation bilaterally, no wheezes, no crackles, no accessory muscle use. HEART: Regular rate and rhythm, S1, S2 without murmur ABDOMEN: Soft, nontender, nondistended, normoactive bowel sounds, no guarding, no rebound EXTREMITIES: 2+ pulses, warm, well-perfused, no edema. NEUROLOGICAL: Cranial nerves II through XII grossly intact. Normal speech, gait not observed. PSYCH: Normal mood, normal affect. SKIN: Warm, dry Laboratory Results - last 24 hr 02/01/17 02/01/17 02/01/17 06:20 06:20 06:20 WBC 6.7 RBC 4.62 Hgb 14.2 Hct 42.2 MCV 91.3 MCH 30.6 MCHC 33.6 RDW 13.6 Plt Count 191 MPV 8.4 Neutrophils % 62.8 Lymphocytes % 23.7 Monocytes % 10.2 Eosinophils % 2.8 Basophils % 0.5 PT with INR INR PTT (Actin FS) 51.3 H Sodium 139 Potassium 4.2 Chloride 104 Carbon Dioxide 28 Anion Gap 7 L BUN 16 Creatinine 1.3 Creat Clearance w eGFR 56.90 Random Glucose 96 Calcium 8.5 Phosphorus 3.6 Magnesium 2.0 Total Bilirubin 0.6 AST 24 ALT 36 D Alkaline Phosphatase 61 Total Protein 6.4 Albumin 3.3 L 02/01/17 06:20 WBC RBC Hgb Hct MCV MCH MCHC RDW Plt Count MPV Neutrophils % Lymphocytes % Monocytes % Eosinophils % Basophils % PT with INR 11.50 INR 1.02 PTT (Actin FS) Sodium Potassium Chloride Carbon Dioxide Anion Gap BUN Creatinine Creat Clearance w eGFR Random Glucose Calcium Phosphorus Magnesium Total Bilirubin AST ALT Alkaline Phosphatase Total Protein Albumin Active Medications Generic Name Dose Route Start Last Admin Trade Name Leora PRN Reason Stop Dose Admin Atorvastatin Calcium 80 mg 02/01/17 22:00 Lipitor - PO HS IVA Finasteride 5 mg 02/01/17 10:00 02/01/17 09:02 Proscar - PO 5 mg DAILY IVA Administration Heparin Sodium (Porcine) 5,000 unit 01/31/17 22:41 Heparin - IVPUSH PRN PRN Heparin Heparin Sodium (Porcine) 1,000 unit 01/31/17 22:41 Heparin - IVPUSH PRN PRN Heparin Heparin Sodium/Dextrose 25,000 units in 500 mls @ 20 mls/hr 01/31/17 22:41 08:00 Heparin Infusion - IVPB 1,000 units/hr TITR IVA 20 mls/hr Protocol Titration 1,000 UNITS/HR Non-Formulary Medication 400 mg 02/01/17 08:00 02/01/17 08:00 Imatinib Mesylate [Gleevec] PO 400 mg DAILY@0800 IVA Administration Sodium Chloride 2 spray 01/31/17 17:39 02/01/17 09:13 [place] Nasal [place] - NS 2 sprays TID PRN Administration NASAL CONGESTION Warfarin Sodium 5 mg 01/31/17 18:00 01/31/17 17:28 Coumadin - PO 5 mg DAILY@1800 IVA Administration ASSESSMENT/PLAN: This is a 56 yo M with PMH of CML in remission and recent long car ride, who has presented with b/l submassive PE with RV strain Neuro: -aaox3 CV: *RV strain 2/2 submassive PE; submassive -TTE appreciated -no events on tele -stable for floor xfer with cardio monitor Pulm: *B/l acute submassive PE -on hep gtt, bridging to coum -IR attempted direct-catheter thrombectomy, placed 5mL of TPA but unable to finish procedure due to v tach Heme *LLE DVT -provoked by long car ride and possibly affected by CA *Chronic Myeloid Leukemia -heme consult appreciated -w/u p/d Fen no ivf lytes stable reg diet hep Dispo: tele Problem List - Problems (1) DVT (deep venous thrombosis) Code(s): I82.409 - ACUTE EMBOLISM AND THOMBOS UNSP DEEP VN UNSP LOWER EXTREMITY (2) CML (chronic myelocytic leukemia) Code(s): C92.10 - CHRONIC MYELOID LEUK, BCR/ABL-POSITIVE, NOT ACHIEVE REMIS (3) Elevated troponin Code(s): R74.8 - ABNORMAL LEVELS OF OTHER SERUM ENZYMES (4) Pulmonary embolism Code(s): I26.99 - OTHER PULMONARY EMBOLISM WITHOUT ACUTE COR PULMONALE (5) Syncope and collapse Code(s): R55 - SYNCOPE AND COLLAPSE Visit type - Emergency Visit Emergency Visit: No - New Patient This patient is new to me today: Yes Date on this admission: 02/01/17 - Critical Care Critical Care patient: Yes Total Critical Care Time (in minutes): 35 Critical Care Statement: The care of this patient involved high complexity decision making to prevent further life threatening deterioration of the patient 's condition and/or to evaluate & treat vital organ system(s) failure or risk of failure. - Discharge Referral Referred to [facility] Med P.C.: Yes
--- NOTE | 2017-02-01 17:02 | PN ---
Progress Note (short form) - Note Progress Note: Pt heparin gtt changed to lovenox, as will not need frequent PTT checks. Heparin gtt to be d/c 5pm, lovenox to be started at 9pm. Discussed with Dr. Corral. Will continue with lovenox/coumadin bridge and daily INR checks. Thank you Suki Choe MD PGY-1 ICU team
--- NOTE | 2017-02-01 17:14 | PN ---
Progress Note (short form) - Note Progress Note: Subjective: The patient was seen and examined at the bedside, he denies any shortness of breath, chest pain at this time. De did state he had left calf pain today when he stood up and it was relieved when he laid back down. Current Medications Generic Name Dose Route Start Last Admin Trade Name Freq PRN Reason Stop Dose Admin Atorvastatin Calcium 80 mg 02/01/17 22:00 Lipitor - PO HS IVA Enoxaparin Sodium 90 mg 02/01/17 21:00 Lovenox - SQ BID IVA Finasteride 5 mg 02/01/17 10:00 02/01/17 09:02 Proscar - PO 5 mg DAILY IVA Administration Non-Formulary Medication 400 mg 02/01/17 08:00 02/01/17 08:00 Imatinib Mesylate [Gleevec] PO 400 mg DAILY@0800 IVA Administration Sodium Chloride 2 spray 01/31/17 17:39 02/01/17 09:13 [place] Nasal [place] - NS 2 sprays TID PRN Administration NASAL CONGESTION Warfarin Sodium 5 mg 01/31/17 18:00 01/31/17 17:28 Coumadin - PO 5 mg DAILY@1800 IVA Administration Objective: Vital Signs Period Temp Pulse Resp BP Sys/Correa Pulse Ox Last 24 Hr 97.3 F-98.9 F 58-79 15-18 116-136/72-91 95-100 Physical Exam: General: NAD, A&x3 Lungs: CTA bilaterally Heart: RRR, S1S2 Abd: Soft, non-tender, non-distended. Normoactive bowel sounds Ext: Warm, well-perfused. 2+ DP/PT bilaterally Neuro: CN 2-12 intact CBCD WBC 6.7 K/mm3 (4.0-10.0) 02/01/17 06:20 RBC 4.62 M/mm3 (4.00-5.60) 02/01/17 06:20 Hgb 14.2 GM/dL (11.7-16.9) 02/01/17 06:20 Hct 42.2 % (35.4-49) 02/01/17 06:20 MCV 91.3 fl (80-96) 02/01/17 06:20 MCHC 33.6 g/dl (32.0-35.9) 02/01/17 06:20 RDW 13.6 % (11.9-15.9) 02/01/17 06:20 Plt Count 191 K/MM3 (134-434) 02/01/17 06:20 MPV 8.4 fl (7.5-11.1) 02/01/17 06:20 CMP Sodium 139 mmol/L (136-145) 02/01/17 06:20 Potassium 4.2 mmol/L (3.5-5.1) 02/01/17 06:20 Chloride 104 mmol/L (98-107) 02/01/17 06:20 Carbon Dioxide 28 mmol/L (21-32) 02/01/17 06:20 Anion Gap 7 (8-16) L 02/01/17 06:20 BUN 16 mg/dL (7-18) 02/01/17 06:20 Creatinine 1.3 mg/dL (0.7-1.3) 02/01/17 06:20 Creat Clearance w eGFR 56.90 (>60) 02/01/17 06:20 Random Glucose 96 mg/dL (74-106) 02/01/17 06:20 Calcium 8.5 mg/dL (8.5-10.1) 02/01/17 06:20 Total Bilirubin 0.6 mg/dL (0.2-1.0) 02/01/17 06:20 AST 24 U/L (15-37) 02/01/17 06:20 ALT 36 U/L (12-78) D 02/01/17 06:20 Alkaline Phosphatase 61 U/L (45-117) 02/01/17 06:20 Total Protein 6.4 g/dl (6.4-8.2) 02/01/17 06:20 Albumin 3.3 g/dl (3.4-5.0) L 02/01/17 06:20 CARDIAC ENZYMES Creatine Kinase 223 IU/L (39-308) 01/29/17 15:40 Troponin I 1.62 ng/ml (0.00-0.05) H* 01/29/17 21:30 Microbiology 01/30/17 03:55 Urine - Urine Clean Catch Urine Culture - Final NO GROWTH OBTAINED Assessment: This is a 56 year old male with PMHx of CML x4 years (in remission) , BPH who presented to the ED with left high pain and shortness of breath. Plan: 1) Acute pulmonary edema, Left DVT - Likely provoked - ECHO: RV systolic function is moderately reduced. No evidence for an atrial septal defect. RV systolic pressure is elevated. Moderate pulmonary hypertension - Elevated trop, normal BNP - Attempt at thrombectomy but was stopped due to arrhythmia inducement - Started on Lovenox 90mg sq bid tonight - Ongoing hematology workup 2) CML - Stable -
[2017-02-01] MEDS: WARFARIN NA 5 MG TABLET (UD) PO SCH (18:36)
[2017-02-01] MEDS: ENOXAPARIN NA (PORCINE) 100 MG/1 ML DISP.SYRIN SQ SCH (20:42)
[2017-02-01] MEDS: ATORVASTATIN CA 80 MG TABLET (FP) PO SCH (21:04)
[2017-02-01] MEDS ORDERED: CHLORHEXIDINE GLUCONATE 4% CLEANSER FOR DECOLONIZATION TP SCH (22:00)
[2017-02-01] MEDS ORDERED: ENOXAPARIN NA (PORCINE) 80 MG/0.8 ML DISP.SYRIN SQ SCH (22:00)
[2017-02-02 07:23] LABS: MCH 29.5 pg (25.7-33.7); MCHC 32.3 g/dl (32.0-35.9); MEAN CELL VOLUME 91.6 fl (80-96); PLATELET COUNT 210 K/MM3 (134-434); RDW 13.9 % (11.9-15.9); WHITE BLOOD COUNT 7.5 K/mm3 (4.0-10.0)
[2017-02-02 07:38] LABS: INR 1.12 (0.82-1.09); PROTHROMBIN TIME (PATIENT) 12.6 SEC (9.98-11.88)
[2017-02-02 08:03] LABS: ALBUMIN 3.3 g/dl (3.4-5.0); ANION GAP 8 (8-16); CALCIUM 8.4 mg/dL (8.5-10.1); CO2 24 mmol/L (21-32); GLUCOSE,RANDOM 92 mg/dL (74-106)
[2017-02-02 08:09] LABS: ALK PHOS 68 U/L (45-117); BILIRUBIN,TOTAL 0.5 mg/dL (0.2-1.0); CREATININE 1.4 mg/dL (0.7-1.3); PHOSPHOROUS 3.7 mg/dL (2.5-4.9); SGOT/AST 67 U/L (15-37); SGPT/ALT 83 U/L (12-78); TOT PROT 6.6 g/dl (6.4-8.2)
[2017-02-02] MEDS: IMATINIB MESYLATE 400 MG PO SCH (08:11)
[2017-02-02] MEDS: ENOXAPARIN NA (PORCINE) 100 MG/1 ML DISP.SYRIN SQ SCH ×2 (08:12→20:59)
--- NOTE | 2017-02-02 08:19 | PN ---
Progress Note, Physician Chief Complaint: Pt A&Ox3 walking in room; denies chest pain or dyspnea. History of Present Illness: 56 yr old black man with PMHx CML, BPH, presents to the ED after the acute onset of chest tightness and shortness of breath that began after shoveling snow today. Patient and report that he has been complaining of cough for the last week--was seen in urgent care and diagnosed with bronchitis. Awoke this morning with a subjective feeling of tightness in his left leg. Despite this, he was helping his shovel snow this morning. Patient did not experience chest tightness or shortness of breath while shoveling, but after going up and down the stairs quickly, he developed tightness in his chest and became short of breath. reports that he then collapsed and was briefly unconscious. On arrival to the ED, patient walked in with assistance from his , but then collapsed at the door of the ED. Did not lose consciousness and was able to get onto a stretcher with assistance. Patient and deny cardiac history. Had coronary angiogram (February of 2015 ) that showed nonobstructive CAD. Pt's says they had several long-distance car trips in the past few weeks, including round-trip to [place] within the past 10 days (pt was passenger ; they often did not get out of the car for hours). - Current Medication List Current Medications: Active Medications Atorvastatin Calcium (Lipitor -) 80 mg PO HS [facility] Last Admin: 02/01/17 21:04 Dose: 80 mg Enoxaparin Sodium (Lovenox -) 90 mg SQ Q12H [facility] Last Admin: 02/02/17 08:12 Dose: 90 mg Finasteride (Proscar -) 5 mg PO DAILY [facility] Last Admin: 02/01/17 09:02 Dose: 5 mg Non-Formulary Medication (Imatinib Mesylate [Gleevec]) 400 mg PO DAILY@0800 [facility] Last Admin: 02/02/17 08:11 Dose: 400 mg Sodium Chloride ([place] Nasal [place] -) 2 spray NS TID PRN PRN Reason: NASAL CONGESTION Last Admin: 02/01/17 09:13 Dose: 2 sprays Warfarin Sodium (Coumadin -) 5 mg PO DAILY@1800 [facility] Last Admin: 02/01/17 18:36 Dose: 5 mg - Objective Vital Signs: Vital Signs Temperature 98.8 F 12/14/17 05:46 Pulse Rate 82 02/02/17 05:46 Respiratory Rate 18 02/02/17 05:46 Blood Pressure 95/62 02/02/17 05:46 O2 Sat by Pulse Oximetry (%) 98 02/01/17 20:51 Constitutional: Yes: Calm Eyes: Yes: WNL HENT: Yes: WNL Neck: Yes: WNL Cardiovascular: Yes: WNL Respiratory: Yes: Diminished Gastrointestinal: Yes: WNL ...Rectal Exam: Yes: Deferred Genitourinary: No: Anuria Breast(s): Yes: WNL Musculoskeletal: Yes: Muscle Weakness. No: Muscle Pain Extremities: Yes: WNL Edema: Yes Edema: LLE: Trace Peripheral Pulses WNL: Yes Integumentary: Yes: WNL Neurological: Yes: WNL Psychiatric: Yes: WNL Labs: CBC, BMP 02/02/17 05:05 INR, PTT INR 1.12 (0.82-1.09) 02/02/17 05:05 - ....Imaging Other: Image Reviewed (telemetry: NSR) Problem List - Problems (1) Pulmonary embolism Assessment/Plan: Continue IV heparin until INR 2-3 on warfarin. Follow decision-making on final choice of anticoagulant. Code(s): I26.99 - OTHER PULMONARY EMBOLISM WITHOUT ACUTE COR PULMONALE (2) Syncope and collapse Assessment/Plan: likely secondary to consequences of large bilateral PE. Code(s): R55 - SYNCOPE AND COLLAPSE (3) Elevated troponin Assessment/Plan: 0l.02-->2.0-->1.6; normal CK/MB relative index. Mild TNI elevation likely from strain of PE. Hx patent coronary arteries on 02/2015 coronary angiogram. Continue statin. Code(s): R74.8 - ABNORMAL LEVELS OF OTHER SERUM ENZYMES (4) Elevated LFTs Assessment/Plan: acute increase in LFTs. May discontinue statin (started initially when considering acute [place]); f/u LFTs serially. Code(s): R79.89 - OTHER SPECIFIED ABNORMAL FINDINGS OF BLOOD CHEMISTRY
[2017-02-02] MEDS: FINASTERIDE 5 MG TABLET (FP) PO SCH (09:29)
--- NOTE | 2017-02-02 11:12 | PN ---
Progress Note (short form) - Note Progress Note: PULMONARY OFFERS NO COMPLAINTS VSS/AFEBRILE/SPO2 98% R/A ANICTERIC CLEAR B/L BREATH SOUNDS S1S2 BS+ OBESE MILD LEFT CALF EDEMA WITH "TIGHTNESS" TO PALPATION INR 1.12 HGB 14.5 BUN 16 IMAGES REVIEWED Acute Pulmonary Emboli LLE DVT Right Heart Strain Chronic Myeloid Leukemia - continue anticoagulation, transition to oral agent - O2 as needed - OOB to chair Juanis SIMMS MD
[2017-02-02] MEDS: SODIUM CHLORIDE NASAL SPRAY 44 ML BOTTLE NS PRN (16:18)
[2017-02-02] MEDS ORDERED: oxyCODONE HCL 5 MG TABLET PO ONE (16:41)
[2017-02-02] MEDS: WARFARIN NA 5 MG TABLET (UD) PO SCH (17:22)
--- NOTE | 2017-02-02 17:28 | PN ---
Progress Note (short form) - Note Progress Note: Subjective: The patient was seen and examined at the bedside, he denies any shortness of breath, chest pain at this time. De did state he had left calf pain today when he stood up and it was relieved when he laid back down. Current Medications Generic Name Dose Route Start Last Admin Trade Name Freq PRN Reason Stop Dose Admin Atorvastatin Calcium 80 mg 02/01/17 22:00 Lipitor - PO HS IVA Enoxaparin Sodium 90 mg 02/01/17 21:00 Lovenox - SQ BID IVA Finasteride 5 mg 02/01/17 10:00 02/01/17 09:02 Proscar - PO 5 mg DAILY IVA Administration Non-Formulary Medication 400 mg 02/01/17 08:00 02/01/17 08:00 Imatinib Mesylate [Gleevec] PO 400 mg DAILY@0800 IVA Administration Sodium Chloride 2 spray 01/31/17 17:39 02/01/17 09:13 [place] - NS 2 sprays TID PRN Administration NASAL CONGESTION Warfarin Sodium 5 mg 01/31/17 18:00 01/31/17 17:28 Coumadin - PO 5 mg DAILY@1800 IVA Administration Objective: Vital Signs Period Temp Pulse Resp BP Sys/Correa Pulse Ox Last 24 Hr 97.3 F-98.9 F 58-79 15-18 116-136/72-91 95-100 Physical Exam: General: NAD, A&x3 Lungs: CTA bilaterally Heart: RRR, S1S2 Abd: Soft, non-tender, non-distended. Normoactive bowel sounds Ext: Warm, well-perfused. 2+ DP/PT bilaterally Neuro: CN 2-12 intact CBCD WBC 6.7 K/mm3 (4.0-10.0) 02/01/17 06:20 RBC 4.62 M/mm3 (4.00-5.60) 02/01/17 06:20 Hgb 14.2 GM/dL (11.7-16.9) 02/01/17 06:20 Hct 42.2 % (35.4-49) 02/01/17 06:20 MCV 91.3 fl (80-96) 02/01/17 06:20 MCHC 33.6 g/dl (32.0-35.9) 02/01/17 06:20 RDW 13.6 % (11.9-15.9) 02/01/17 06:20 Plt Count 191 K/MM3 (134-434) 02/01/17 06:20 MPV 8.4 fl (7.5-11.1) 02/01/17 06:20 CMP Sodium 139 mmol/L (136-145) 02/01/17 06:20 Potassium 4.2 mmol/L (3.5-5.1) 02/01/17 06:20 Chloride 104 mmol/L (98-107) 02/01/17 06:20 Carbon Dioxide 28 mmol/L (21-32) 02/01/17 06:20 Anion Gap 7 (8-16) L 02/01/17 06:20 BUN 16 mg/dL (7-18) 02/01/17 06:20 Creatinine 1.3 mg/dL (0.7-1.3) 02/01/17 06:20 Creat Clearance w eGFR 56.90 (>60) 02/01/17 06:20 Random Glucose 96 mg/dL (74-106) 02/01/17 06:20 Calcium 8.5 mg/dL (8.5-10.1) 02/01/17 06:20 Total Bilirubin 0.6 mg/dL (0.2-1.0) 02/01/17 06:20 AST 24 U/L (15-37) 02/01/17 06:20 ALT 36 U/L (12-78) D 02/01/17 06:20 Alkaline Phosphatase 61 U/L (45-117) 02/01/17 06:20 Total Protein 6.4 g/dl (6.4-8.2) 02/01/17 06:20 Albumin 3.3 g/dl (3.4-5.0) L 02/01/17 06:20 CARDIAC ENZYMES Creatine Kinase 223 IU/L (39-308) 01/29/17 15:40 Troponin I 1.62 ng/ml (0.00-0.05) H* 01/29/17 21:30 Microbiology 01/30/17 03:55 Urine - Urine Clean Catch Urine Culture - Final NO GROWTH OBTAINED Assessment: This is a 56 year old male with PMHx of CML x4 years (in remission) , BPH who presented to the ED with left high pain and shortness of breath. Plan: 1) Acute pulmonary edema, Left DVT - Likely provoked - ECHO: RV systolic function is moderately reduced. No evidence for an atrial septal defect. RV systolic pressure is elevated. Moderate pulmonary hypertension - Elevated trop, normal BNP - Attempt at thrombectomy but was stopped due to arrhythmia inducement - Lovenox 90mg sq bid bridge to Coumadin - Monitor INR - High dose statin - Ongoing hematology workup 2) CML - Stable - Continue Gleevac 3) F/E/N: - Regular diet - Monitor electrolytes 4) Prophylaxis: - On full dose Lovenox - OOB ambulating 5) Dispo: - Requires continued inpatient care CODE STATUS: FULL CODE Visit type - Emergency Visit Emergency Visit: Yes ED Registration Date: 01/30/17 Care time: The patient presented to the Emergency Department on the above date and was hospitalized for further evaluation of their emergent condition. - New Patient This patient is new to me today: No - Critical Care Critical Care patient: No
[2017-02-02] MEDS: ATORVASTATIN CA 80 MG TABLET (FP) PO SCH (21:00)
--- NOTE | 2017-02-02 22:40 | PN ---
Progress Note (short form) - Note Progress Note: Patient seen and examined feels well Last Vital Signs Temp Pulse Resp BP Pulse Ox 98.5 F 69 18 124/70 98 02/02/17 21:00 02/02/17 21:00 02/02/17 21:00 02/02/17 21:00 02/02/17 21:53 Cor: RSR, No murmurs, No gallops Lungs: Clear to P&A Abd: Soft, Normal bowel sounds, No organomegaly Ext:No significant edema Abnormal Lab Results 02/02/17 02/02/17 05:05 05:05 PT with INR 12.60 H Creatinine 1.4 H Calcium 8.4 L AST 67 H D ALT 83 H D Albumin 3.3 L Active Medications Atorvastatin Calcium (Lipitor -) 80 mg PO HS [facility] Last Admin: 02/02/17 21:00 Dose: 80 mg Enoxaparin Sodium (Lovenox -) 90 mg SQ Q12H [facility] Last Admin: 02/02/17 20:59 Dose: 90 mg Finasteride (Proscar -) 5 mg PO DAILY [facility] Last Admin: 02/02/17 09:29 Dose: 5 mg Non-Formulary Medication (Imatinib Mesylate [Gleevec]) 400 mg PO DAILY@0800 [facility] Last Admin: 02/02/17 08:11 Dose: 400 mg Sodium Chloride ([place] Nasal [place] -) 2 spray NS TID PRN PRN Reason: NASAL CONGESTION Last Admin: 02/02/17 16:18 Dose: 2 sprays Warfarin Sodium (Coumadin -) 5 mg PO DAILY@1800 [facility] Last Admin: 02/02/17 17:22 Dose: 5 mg a/p 56 y/o patient with cml, provoked dvt/pe b/l pe with rt. heart strain failed thrombectomy lovenox bridging to coumadin discussed pros/cons of coumadin vs noacs rediscuss in am abnormal lfts --? lipitor. less likely lvenox will hold lipitor cmlin molecular remission
[2017-02-03 07:53] LABS: MCH 29.7 pg (25.7-33.7); MCHC 32.3 g/dl (32.0-35.9); MEAN CELL VOLUME 91.8 fl (80-96); MEAN PLT VOLUME 8.1 fl (7.5-11.1); PLATELET COUNT 240 K/MM3 (134-434); RDW 13.9 % (11.9-15.9); WHITE BLOOD COUNT 8.1 K/mm3 (4.0-10.0)
[2017-02-03 08:08] LABS: INR 1.52 (0.82-1.09); PROTHROMBIN TIME (PATIENT) 17.2 SEC (9.98-11.88)
[2017-02-03 08:25] LABS: ALBUMIN 3.7 g/dl (3.4-5.0); ANION GAP 8 (8-16); CALCIUM 9.2 mg/dL (8.5-10.1); CO2 25 mmol/L (21-32); CREATININE 1.6 mg/dL (0.7-1.3); GLUCOSE,RANDOM 98 mg/dL (74-106); SGOT/AST 87 U/L (15-37); SGPT/ALT 127 U/L (12-78)
[2017-02-03 08:30] LABS: ALK PHOS 73 U/L (45-117); BILIRUBIN,TOTAL 0.6 mg/dL (0.2-1.0); TOT PROT 7.4 g/dl (6.4-8.2)
--- NOTE | 2017-02-03 10:03 | PN ---
Progress Note, Physician Chief Complaint: Pt A&Ox3; feels well. History of Present Illness: 56 yr old black man with PMHx CML, BPH, presents to the ED after the acute onset of chest tightness and shortness of breath that began after shoveling snow today. Patient and report that he has been complaining of cough for the last week--was seen in urgent care and diagnosed with bronchitis. Awoke this morning with a subjective feeling of tightness in his left leg. Despite this, he was helping his shovel snow this morning. Patient did not experience chest tightness or shortness of breath while shoveling, but after going up and down the stairs quickly, he developed tightness in his chest and became short of breath. reports that he then collapsed and was briefly unconscious. On arrival to the ED, patient walked in with assistance from his , but then collapsed at the door of the ED. Did not lose consciousness and was able to get onto a stretcher with assistance. Patient and deny cardiac history. Had coronary angiogram (February of 2015 ) that showed nonobstructive CAD. Pt's says they had several long-distance car trips in the past few weeks, including round-trip to [place] within the past 10 days (pt was passenger ; they often did not get out of the car for hours). - Current Medication List Current Medications: Active Medications Enoxaparin Sodium (Lovenox -) 90 mg SQ Q12H [facility] Last Admin: 02/02/17 20:59 Dose: 90 mg Finasteride (Proscar -) 5 mg PO DAILY [facility] Last Admin: 02/02/17 09:29 Dose: 5 mg Non-Formulary Medication (Imatinib Mesylate [Gleevec]) 400 mg PO DAILY@0800 [facility] Last Admin: 02/02/17 08:11 Dose: 400 mg Sodium Chloride ([place] Nasal [place] -) 2 spray NS TID PRN PRN Reason: NASAL CONGESTION Last Admin: 02/02/17 16:18 Dose: 2 sprays Warfarin Sodium (Coumadin -) 5 mg PO DAILY@1800 [facility] Last Admin: 02/02/17 17:22 Dose: 5 mg - Objective Vital Signs: Vital Signs Temperature 98.0 F 02/03/17 05:00 Pulse Rate 67 02/03/17 01:00 Respiratory Rate 18 02/03/17 05:00 Blood Pressure 116/64 02/03/17 05:00 O2 Sat by Pulse Oximetry (%) 98 02/02/17 21:53 Constitutional: Yes: Well Nourished, Calm Eyes: Yes: WNL HENT: Yes: WNL Neck: Yes: WNL Cardiovascular: Yes: Regular Rate and Rhythm, S1, S2 Respiratory: Yes: Regular Gastrointestinal: Yes: Soft ...Rectal Exam: Yes: Deferred Genitourinary: No: Anuria Musculoskeletal: Yes: Other (left calf now only slightly swollen; nontender) Extremities: No: Calf Tenderness Edema: Yes Edema: LLE: Trace Peripheral Pulses WNL: Yes Integumentary: No: WNL Neurological: Yes: WNL Psychiatric: Yes: WNL Labs: CBC, BMP 02/03/17 06:30 02/03/17 07:45 INR, PTT INR 1.52 (0.82-1.09) H D 02/03/17 06:30 Abnormal Lab Results 02/03/17 02/03/17 02/03/17 06:30 06:30 06:30 PT with INR 17.20 H INR 1.52 H D PTT ([place] FS) 37.5 H Creatinine 1.6 H AST 87 H D ALT 127 H D Problem List - Problems (1) Pulmonary embolism Assessment/Plan: Continue IV heparin until INR 2-3 on warfarin. As discussed with pharmacist and Dr. Anne, warfarin is considered pt's best option for long-term therapy, though all anticoagulants (NOACs or warfarin) interact with pt's present regimen for cancer. Code(s): I26.99 - OTHER PULMONARY EMBOLISM WITHOUT ACUTE COR PULMONALE (2) Syncope and collapse Assessment/Plan: likely secondary to consequences of large bilateral PE. Code(s): R55 - SYNCOPE AND COLLAPSE (3) Elevated troponin Assessment/Plan: 0l.02-->2.0-->1.6; normal CK/MB relative index. Mild TNI elevation likely from strain of PE. Hx patent coronary arteries on 02/2015 coronary angiogram. Continue statin. Code(s): R74.8 - ABNORMAL LEVELS OF OTHER SERUM ENZYMES (4) Elevated LFTs Assessment/Plan: acute increase in LFTs. Discontinue statin (started initially when considering acute AL); f/u LFTs serially. Code(s): R79.89 - OTHER SPECIFIED ABNORMAL FINDINGS OF BLOOD CHEMISTRY
[2017-02-03] MEDS: ENOXAPARIN NA (PORCINE) 100 MG/1 ML DISP.SYRIN SQ SCH ×2 (10:18→21:00)
[2017-02-03] MEDS: FINASTERIDE 5 MG TABLET (FP) PO SCH (10:19)
[2017-02-03] MEDS: IMATINIB MESYLATE 400 MG PO SCH (10:23)
--- NOTE | 2017-02-03 11:58 | PN ---
Progress Note (short form) - Note Progress Note: PULMONARY OFFERS NO COMPLAINTS VSS/AFEBRILE/SPO2 98% R/A ANICTERIC CLEAR B/L BREATH SOUNDS S1S2 BS+ OBESE MILD LEFT CALF EDEMA WITH "TIGHTNESS" TO PALPATION INR 1.52 IMAGES REVIEWED Acute Pulmonary Emboli LLE DVT Right Heart Strain Chronic Myeloid Leukemia - continue anticoagulation, target 2.5 - O2 as needed - OOB to chair Juanis SIMMS MD
[2017-02-03] MEDS ORDERED: SODIUM CHLORIDE 1,000 ML IV SCH (12:45)
--- NOTE | 2017-02-03 16:55 | PN ---
Progress Note (short form) - Note Progress Note: Patient seen and examined feels well Last Vital Signs Temp Pulse Resp BP Pulse Ox 97.2 F L 66 18 126/68 98 02/03/17 15:58 02/03/17 15:58 02/03/17 15:58 02/03/17 15:58 02/02/17 21:53 Cor: RSR, No murmurs, No gallops Lungs: Clear to P&A Abd: Soft, Normal bowel sounds, No organomegaly Ext:No significant edema Abnormal Lab Results 02/03/17 02/03/17 02/03/17 06:30 06:30 06:30 PT with INR 17.20 H INR 1.52 H D PTT (Actin FS) 37.5 H Creatinine 1.6 H AST 87 H D ALT 127 H D Active Medications Generic Name Dose Route Start Last Admin Trade Name Freq PRN Reason Stop Dose Admin Enoxaparin Sodium 90 mg 02/01/17 21:00 02/03/17 10:18 Lovenox - SQ 90 mg Q12H IVA Administration Finasteride 5 mg 02/01/17 10:00 02/03/17 10:19 Proscar - PO 5 mg DAILY IVA Administration Sodium Chloride 1,000 mls @ 50 mls/hr 02/03/17 12:45 Normal Saline - IV 02/04/17 12:33 ASDIR IVA Non-Formulary Medication 400 mg 02/01/17 08:00 02/03/17 10:23 Imatinib Mesylate [Gleevec] PO 400 mg DAILY@0800 IVA Administration Sodium Chloride 2 spray 01/31/17 17:39 02/02/17 16:18 [place] Nasal [place] - NS 2 sprays TID PRN Administration NASAL CONGESTION Warfarin Sodium 5 mg 01/31/17 18:00 02/02/17 17:22 Coumadin - PO 5 mg DAILY@1800 IVA Administration a/p 56 y/o patient with cml, provoked dvt/pe b/l pe with rt. heart strain failed thrombectomy lovenox bridging to coumadin discussed pros/cons of coumadin vs noacs given interaction between gleeve and xeralto/eliquis ( CY and P glycoprotein pathways)--gleevec could increase exposure of xeralto/eliquis. It could also increase coumadin levels . since coumadin can be monitored and adjucted witll bridge lovenox to coumadin.Monitor INR levels closely Other choice is to consider lovenox for 3months given provoked DVT/PE CML in molecular remission
[2017-02-03] MEDS: WARFARIN NA 5 MG TABLET (UD) PO SCH (17:14)
--- NOTE | 2017-02-03 19:50 | PN ---
Progress Note (short form) - Note Progress Note: Subjective: The patient was seen and examined at the bedside, he has no complaints at this time Current Medications Generic Name Dose Route Start Last Admin Trade Name [place] PRN Reason Stop Dose Admin Enoxaparin Sodium 90 mg 02/01/17 21:00 02/03/17 10:18 Lovenox - SQ 90 mg Q12H IVA Administration Finasteride 5 mg 02/01/17 10:00 02/03/17 10:19 Proscar - PO 5 mg DAILY IVA Administration Sodium Chloride 1,000 mls @ 50 mls/hr 02/03/17 12:45 02/03/17 13:00 Normal Saline - IV 02/04/17 12:33 50 mls/hr ASDIR IVA Administration Non-Formulary Medication 400 mg 02/01/17 08:00 02/03/17 10:23 Imatinib Mesylate [Gleevec] PO 400 mg DAILY@0800 IVA Administration Sodium Chloride 2 spray 01/31/17 17:39 02/02/17 16:18 [place] Nasal [place] - NS 2 sprays TID PRN Administration NASAL CONGESTION Warfarin Sodium 5 mg 01/31/17 18:00 02/03/17 17:14 Coumadin - PO 5 mg DAILY@1800 IVA Administration Objective: Vital Signs Period Temp Pulse Resp BP Sys/Correa Pulse Ox Last 24 Hr 97.2 F-98.8 F 65-70 18-18 113-126/64-87 98 Physical Exam: General: NAD, A&x3 Lungs: CTA bilaterally Heart: RRR, S1S2 Abd: Soft, non-tender, non-distended. Normoactive bowel sounds. No CVA tenderness Ext: Warm, well-perfused. 2+ DP/PT bilaterally Neuro: CN 2-12 intact CBCD WBC 8.1 K/mm3 (4.0-10.0) 02/03/17 06:30 RBC 5.19 M/mm3 (4.00-5.60) 02/03/17 06:30 Hgb 15.4 GM/dL (11.7-16.9) 02/03/17 06:30 Hct 47.6 % (35.4-49) 02/03/17 06:30 MCV 91.8 fl (80-96) 02/03/17 06:30 MCHC 32.3 g/dl (32.0-35.9) 02/03/17 06:30 RDW 13.9 % (11.9-15.9) 02/03/17 06:30 Plt Count 240 K/MM3 (134-434) 02/03/17 06:30 MPV 8.1 fl (7.5-11.1) 02/03/17 06:30 CMP Sodium 137 mmol/L (136-145) 02/03/17 06:30 Potassium 4.6 mmol/L (3.5-5.1) 02/03/17 06:30 Chloride 104 mmol/L (98-107) 02/03/17 06:30 Carbon Dioxide 25 mmol/L (21-32) 02/03/17 06:30 Anion Gap 8 (8-16) 02/03/17 06:30 BUN 18 mg/dL (7-18) 02/03/17 06:30 Creatinine 1.6 mg/dL (0.7-1.3) H 02/03/17 06:30 Creat Clearance w eGFR 44.78 (>60) 02/03/17 06:30 Random Glucose 98 mg/dL (74-106) 02/03/17 06:30 Calcium 9.2 mg/dL (8.5-10.1) 02/03/17 06:30 Total Bilirubin 0.6 mg/dL (0.2-1.0) 02/03/17 06:30 AST 87 U/L (15-37) H D 02/03/17 06:30 ALT 127 U/L (12-78) H D 02/03/17 06:30 Alkaline Phosphatase 73 U/L (45-117) 02/03/17 06:30 Total Protein 7.4 g/dl (6.4-8.2) 02/03/17 06:30 Albumin 3.7 g/dl (3.4-5.0) 02/03/17 06:30 CARDIAC ENZYMES Creatine Kinase 223 IU/L (39-308) 01/29/17 15:40 Troponin I 1.62 ng/ml (0.00-0.05) H* 01/29/17 21:30 Microbiology 01/30/17 03:55 Urine - Urine Clean Catch Urine Culture - Final NO GROWTH OBTAINED Assessment: This is a 56 year old male with PMHx of CML x4 years (in remission) , BPH who presented to the ED with left high pain and shortness of breath. Plan: 1) Acute pulmonary edema, Left DVT - Likely provoked - ECHO: RV systolic function is moderately reduced. No evidence for an atrial septal defect. RV systolic pressure is elevated. Moderate pulmonary hypertension - Elevated trop, normal BNP - Attempt at thrombectomy but was stopped due to arrhythmia inducement - Lovenox 90mg sq bid bridge to Coumadin (if worsening kidney function, may need to switch to heparin gtt) - Monitor INR - Lipitor discontinued 2/2 worsening liver function - Ongoing hematology workup 2) ASHLEY - Kidney/bladder ultrasound with morphologically normal kidneys with no evidence of significant hydronephrosis - F/u urine electrolytes - Trend creatinine 3) Worsening liver function - Likely 2/2 high dose lipitor - Discontinued lipitor - Continue to trend 4) CML - Stable - Continue Gleevac 5) F/E/N: - Regular diet - Monitor electrolytes 6) Prophylaxis: - On full dose Lovenox - OOB ambulating 7) Dispo: - Requires continued inpatient care CODE STATUS: FULL CODE Visit type - Emergency Visit Emergency Visit: Yes ED Registration Date: 01/30/17 Care time: The patient presented to the Emergency Department on the above date and was hospitalized for further evaluation of their emergent condition. - New Patient This patient is new to me today: No - Critical Care Critical Care patient: No
[2017-02-04 07:04] LABS: MCH 29.5 pg (25.7-33.7); MCHC 32.1 g/dl (32.0-35.9); MEAN CELL VOLUME 91.9 fl (80-96); MEAN PLT VOLUME 8.1 fl (7.5-11.1); PLATELET COUNT 220 K/MM3 (134-434); WHITE BLOOD COUNT 6.7 K/mm3 (4.0-10.0)
[2017-02-04 07:22] LABS: INR 2.13 (0.82-1.09); PROTHROMBIN TIME (PATIENT) 24.1 SEC (9.98-11.88)
[2017-02-04 07:34] LABS: ALBUMIN 3.2 g/dl (3.4-5.0); ANION GAP 9 (8-16); CALCIUM 8.3 mg/dL (8.5-10.1); CO2 22 mmol/L (21-32); CREATININE 1.4 mg/dL (0.7-1.3); GLUCOSE,RANDOM 86 mg/dL (74-106); SGOT/AST 77 U/L (15-37); SGPT/ALT 124 U/L (12-78)
[2017-02-04 07:36] LABS: ALK PHOS 64 U/L (45-117); BILIRUBIN,TOTAL 0.4 mg/dL (0.2-1.0); TOT PROT 6.2 g/dl (6.4-8.2)
[2017-02-04] MEDS ORDERED: WARFARIN NA 5 MG TABLET (UD) PO SCH (08:23)
--- NOTE | 2017-02-04 09:24 | PN ---
Progress Note, Physician History of Present Illness: seen and examined today in [facility]. no overnight events. no new complaints - Current Medication List Current Medications: Active Medications Enoxaparin Sodium (Lovenox -) 90 mg SQ Q12H [facility] Last Admin: 02/03/17 21:00 Dose: 90 mg Finasteride (Proscar -) 5 mg PO DAILY [facility] Last Admin: 02/03/17 10:19 Dose: 5 mg Sodium Chloride (Normal Saline -) 1,000 mls @ 50 mls/hr IV ASDIR [facility] Stop: 02/04/17 12:33 Last Admin: 02/03/17 13:00 Dose: 50 mls/hr Non-Formulary Medication (Imatinib Mesylate [Gleevec]) 400 mg PO DAILY@0800 [facility] Last Admin: 02/03/17 10:23 Dose: 400 mg Sodium Chloride ([place] Nasal [place] -) 2 spray NS TID PRN PRN Reason: NASAL CONGESTION Last Admin: 02/02/17 16:18 Dose: 2 sprays Warfarin Sodium (Coumadin -) 3 mg PO DAILY@1800 [facility] - Objective Vital Signs: Vital Signs Temperature 98.5 F 02/04/17 09:00 Pulse Rate 73 02/04/17 09:00 Respiratory Rate 18 02/04/17 09:00 Blood Pressure 110/52 02/04/17 09:00 O2 Sat by Pulse Oximetry (%) 98 02/04/17 09:12 Constitutional: Yes: No Distress, Calm Eyes: Yes: Conjunctiva Clear, EOM Intact, PERRL HENT: Yes: WNL, Atraumatic, Normocephalic Neck: Yes: Supple, Trachea Midline Cardiovascular: Yes: Regular Rate and Rhythm, S1, S2. No: Bradycardia, Tachycardia, Pulse Irregular, Bruit, JVD, Gallop, Murmur, Rub, S3, S4, Varicosities Respiratory: Yes: Regular, CTA Bilaterally. No: Rales, Rhonchi, SOB, Wheezes Gastrointestinal: Yes: Normal Bowel Sounds, Soft. No: Distention, Tenderness Musculoskeletal: Yes: WNL Extremities: Yes: WNL Edema: LLE: Trace, RLE: Trace Peripheral Pulses: Left Doralis Pedis: 2+, Right Dorsalis Pedis: 2+ Integumentary: Yes: WNL Neurological: Yes: Alert, Oriented Psychiatric: Yes: Alert, Oriented Labs: CBC, BMP 02/04/17 05:05 02/04/17 05:05 INR, PTT INR 2.13 (0.82-1.09) H D 02/04/17 05:05 - ....Imaging Chest X-ray: Report Reviewed, Image Reviewed EKG: Report Reviewed, Image Reviewed Other: Report Reviewed, Image Reviewed (tele-nsr, apcs, pvcs, 5 beats nsvt 02/03 ) Assessment/Plan 56M h/o CML, BPH, admitted with acute onset of chest tightness and shortness of breath, followed by syncope found to have pulmonary embolism. Pulmonary embolism/DVT -receiving Lovenox bridge to coumadin -heme, pulmonary following Chest pain/sob/syncope-secondary to large PE -elevated troponin due to PE -cardiac cath 2015 showed non-obs CAD -statin stopped due to elevated LFTs Arrhythmia-5 beats NSVT on tele yesterday -likely due to PE -cont tele until discharge
--- NOTE | 2017-02-04 09:55 | PN ---
Progress Note (short form) - Note Progress Note: Subjective: The patient was seen and examined at the bedside, he has no complaints at this time 5 beats on NSVT yesterday Current Medications Generic Name Dose Route Start Last Admin Trade Name [place] PRN Reason Stop Dose Admin Enoxaparin Sodium 90 mg 02/01/17 21:00 02/03/17 21:00 Lovenox - SQ 90 mg Q12H IVA Administration Finasteride 5 mg 02/01/17 10:00 02/03/17 10:19 Proscar - PO 5 mg DAILY IVA Administration Sodium Chloride 1,000 mls @ 50 mls/hr 02/03/17 12:45 02/03/17 13:00 Normal Saline - IV 02/04/17 12:33 50 mls/hr ASDIR IVA Administration Non-Formulary Medication 400 mg 02/01/17 08:00 02/03/17 10:23 Imatinib Mesylate [Gleevec] PO 400 mg DAILY@0800 IVA Administration Sodium Chloride 2 spray 01/31/17 17:39 02/02/17 16:18 [place] Nasal [place] - NS 2 sprays TID PRN Administration NASAL CONGESTION Warfarin Sodium 3 mg 02/04/17 18:00 Coumadin - PO DAILY@1800 IVA Objective: Vital Signs Period Temp Pulse Resp BP Sys/Correa Pulse Ox Last 24 Hr 97.2 F-98.8 F 65-76 18-18 103-126/52-71 97-98 Physical Exam: General: NAD, A&x3 Lungs: CTA bilaterally Heart: RRR, S1S2 Abd: Soft, non-tender, non-distended. Normoactive bowel sounds. No CVA tenderness Ext: Warm, well-perfused. 2+ DP/PT bilaterally Neuro: CN 2-12 intact CBCD WBC 6.7 K/mm3 (4.0-10.0) 02/04/17 05:05 RBC 4.72 M/mm3 (4.00-5.60) 02/04/17 05:05 Hgb 13.9 GM/dL (11.7-16.9) 02/04/17 05:05 Hct 43.4 % (35.4-49) 02/04/17 05:05 MCV 91.9 fl (80-96) 02/04/17 05:05 MCHC 32.1 g/dl (32.0-35.9) 02/04/17 05:05 RDW 14.0 % (11.9-15.9) 02/04/17 05:05 Plt Count 220 K/MM3 (134-434) 02/04/17 05:05 MPV 8.1 fl (7.5-11.1) 02/04/17 05:05 CMP Sodium 137 mmol/L (136-145) 02/04/17 05:05 Potassium 4.3 mmol/L (3.5-5.1) 02/04/17 05:05 Chloride 106 mmol/L (98-107) 02/04/17 05:05 Carbon Dioxide 22 mmol/L (21-32) 02/04/17 05:05 Anion Gap 9 (8-16) 02/04/17 05:05 BUN 17 mg/dL (7-18) 02/04/17 05:05 Creatinine 1.4 mg/dL (0.7-1.3) H 02/04/17 05:05 Creat Clearance w eGFR 52.24 (>60) 02/04/17 05:05 Random Glucose 86 mg/dL (74-106) 02/04/17 05:05 Calcium 8.3 mg/dL (8.5-10.1) L 02/04/17 05:05 Total Bilirubin 0.4 mg/dL (0.2-1.0) D 02/04/17 05:05 AST 77 U/L (15-37) H 02/04/17 05:05 ALT 124 U/L (12-78) H 02/04/17 05:05 Alkaline Phosphatase 64 U/L (45-117) 02/04/17 05:05 Total Protein 6.2 g/dl (6.4-8.2) L 02/04/17 05:05 Albumin 3.2 g/dl (3.4-5.0) L 02/04/17 05:05 CARDIAC ENZYMES Creatine Kinase 223 IU/L (39-308) 01/29/17 15:40 Troponin I 1.62 ng/ml (0.00-0.05) H* 01/29/17 21:30 Microbiology 01/30/17 03:55 Urine - Urine Clean Catch Urine Culture - Final NO GROWTH OBTAINED Assessment: This is a 56 year old male with PMHx of CML x4 years (in remission) , BPH who presented to the ED with left high pain and shortness of breath. Plan: 1) Acute pulmonary edema, Left DVT - Likely provoked - ECHO: RV systolic function is moderately reduced. No evidence for an atrial septal defect. RV systolic pressure is elevated. Moderate pulmonary hypertension - Elevated trop, normal BNP - Attempt at thrombectomy but was stopped due to arrhythmia inducement - Lovenox 90mg sq bid bridge to Coumadin, INR therapeutic today, will continue Lovenox for 24 hours - Gleevac can increase Coumadin level. Will decrease Coumadin to 3mg po hs tonight and monitor INR, caution to not cause supratherapeutic INR - Ongoing hematology workup 2) ASHLEY - Kidney/bladder ultrasound with morphologically normal kidneys with no evidence of significant hydronephrosis - FeNa 0.2%: prerenal - ASHLEY may be from hypotensive episode on 02/02 with BP charted as 95/62 - Cr improving with gentle IV fluids, continue for now and monitor Cr 3) Worsening liver function - Likely 2/2 high dose lipitor - Discontinued lipitor - Stable today - Continue to trend 4) CML - Stable - Continue Gleevac 5) F/E/N: - Regular diet - Monitor electrolytes 6) Prophylaxis: - On full dose Lovenox bridge to Coumadin - OOB ambulating 7) Dispo: - Requires continued inpatient care CODE STATUS: FULL CODE Visit type - Emergency Visit Emergency Visit: Yes ED Registration Date: 01/30/17 Care time: The patient presented to the Emergency Department on the above date and was hospitalized for further evaluation of their emergent condition. - New Patient This patient is new to me today: No - Critical Care Critical Care patient: No
[2017-02-04] MEDS: IMATINIB MESYLATE 400 MG PO SCH (10:26)
[2017-02-04] MEDS: FINASTERIDE 5 MG TABLET (FP) PO SCH (10:27)
[2017-02-04] MEDS: ENOXAPARIN NA (PORCINE) 100 MG/1 ML DISP.SYRIN SQ SCH ×2 (10:27→21:02)
[2017-02-04] MEDS ORDERED: PT OWN MED DRAWER 7, Y5N ONE (10:40)
--- NOTE | 2017-02-04 10:52 | PN ---
Progress Note (short form) - Note Progress Note: PULMONARY OFFERS NO COMPLAINTS VSS/AFEBRILE/SPO2 98% R/A ANICTERIC CLEAR B/L BREATH SOUNDS S1S2 BS+ OBESE MILD LEFT CALF EDEMA WITH "TIGHTNESS" TO PALPATION INR 2.1 IMAGES REVIEWED Acute Pulmonary Emboli LLE DVT Right Heart Strain Chronic Myeloid Leukemia - continue anticoagulation, target 2.5 - O2 as needed - OOB to chair - spoke with Hospitalist Juanis SIMMS MD
--- NOTE | 2017-02-04 13:58 | PN ---
Progress Note (short form) - Note Progress Note: Patient seen and examined feels well Vital Signs Period Temp Pulse Resp BP Sys/Correa Pulse Ox Last 24 Hr 97.2 F-98.8 F 65-76 18-18 103-126/52-71 97-98 Cor: RSR, No murmurs, No gallops Lungs: Clear to P&A Abd: Soft, Normal bowel sounds, No organomegaly Ext:No significant edema CBC, BMP 02/04/17 05:05 02/04/17 05:05 Active Medications Generic Name Dose Route Start Last Admin Trade Name Freq PRN Reason Stop Dose Admin Enoxaparin Sodium 90 mg 02/01/17 21:00 02/04/17 10:27 Lovenox - SQ 90 mg Q12H IVA Administration Finasteride 5 mg 02/01/17 10:00 02/04/17 10:27 Proscar - PO 5 mg DAILY IVA Administration Non-Formulary Medication 400 mg 02/01/17 08:00 02/04/17 10:26 Imatinib Mesylate [Gleevec] PO 400 mg DAILY@0800 IVA Administration Sodium Chloride 2 spray 01/31/17 17:39 02/02/17 16:18 [place] Nasal [place] - NS 2 sprays TID PRN Administration NASAL CONGESTION Warfarin Sodium 3 mg 02/04/17 18:00 Coumadin - PO DAILY@1800 IVA a/p 56 y/o patient with cml, provoked dvt/pe b/l pe with rt. heart strain failed thrombectomy lovenox bridging to coumadin needs an overalp of 2 days after therapeutic AC ?till Monday discussed pros/cons of coumadin vs noacs given interaction between gleeve and xeralto/eliquis ( CY and P glycoprotein pathways)--gleevec could increase exposure of xeralto/eliquis. It could also increase coumadin levels . 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
[2017-02-04] MEDS: WARFARIN NA 3 MG TABLET PO SCH (17:03)
[2017-02-05] MEDS: IMATINIB MESYLATE 400 MG PO SCH (08:00)
--- NOTE | 2017-02-05 09:01 | PN ---
Progress Note (short form) - Note Progress Note: Patient seen and examined feels well up early really wants to go home Vital Signs Period Temp Pulse Resp BP Sys/Correa Pulse Ox Last 24 Hr 97.4 F-98.5 F 61-73 18-19 111-130/56-69 98-98 Cor: RSR, No murmurs, No gallops Lungs: Clear to P&A Abd: Soft, Normal bowel sounds, No organomegaly Ext:No significant edema Active Medications Generic Name Dose Route Start Last Admin Trade Name Freq PRN Reason Stop Dose Admin Enoxaparin Sodium 90 mg 02/01/17 21:00 02/04/17 21:02 Lovenox - SQ 90 mg Q12H IVA Administration Finasteride 5 mg 02/01/17 10:00 02/04/17 10:27 Proscar - PO 5 mg DAILY IVA Administration Non-Formulary Medication 400 mg 02/01/17 08:00 02/04/17 10:26 Imatinib Mesylate [Gleevec] PO 400 mg DAILY@0800 IVA Administration Sodium Chloride 2 spray 01/31/17 17:39 02/02/17 16:18 [place] Nasal [place] - NS 2 sprays TID PRN Administration NASAL CONGESTION Warfarin Sodium 3 mg 02/04/17 18:00 02/04/17 17:03 Coumadin - PO 3 mg DAILY@1800 IVA Administration a/p 56 y/o patient with cml, provoked dvt/pe b/l pe with rt. 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
[2017-02-05] MEDS: FINASTERIDE 5 MG TABLET (FP) PO SCH (09:05)
[2017-02-05] MEDS: ENOXAPARIN NA (PORCINE) 100 MG/1 ML DISP.SYRIN SQ SCH ×3 (09:05→21:06)
[2017-02-05 09:14] LABS: MCH 29.4 pg (25.7-33.7); MCHC 32.2 g/dl (32.0-35.9); MEAN CELL VOLUME 91.3 fl (80-96); MEAN PLT VOLUME 8.4 fl (7.5-11.1); PLATELET COUNT 242 K/MM3 (134-434); RDW 14.2 % (11.9-15.9); WHITE BLOOD COUNT 5.8 K/mm3 (4.0-10.0)
[2017-02-05 09:26] LABS: INR 2.44 (0.82-1.09); PROTHROMBIN TIME (PATIENT) 27.6 SEC (9.98-11.88)
[2017-02-05 09:27] LABS: ALBUMIN 3.8 g/dl (3.4-5.0); ANION GAP 10 (8-16); CALCIUM 9.1 mg/dL (8.5-10.1); CO2 23 mmol/L (21-32); GLUCOSE,RANDOM 92 mg/dL (74-106)
[2017-02-05 09:31] LABS: ALK PHOS 72 U/L (45-117); BILIRUBIN,TOTAL 0.6 mg/dL (0.2-1.0); CREATININE 1.3 mg/dL (0.7-1.3); SGOT/AST 88 U/L (15-37); SGPT/ALT 164 U/L (12-78); TOT PROT 7.3 g/dl (6.4-8.2)
--- NOTE | 2017-02-05 09:49 | PN ---
Progress Note, Physician History of Present Illness: seen and examined today in [facility]. no overnight events or new complaints. hopeful to go home. - Current Medication List Current Medications: Active Medications Enoxaparin Sodium (Lovenox -) 90 mg SQ Q12H [facility] Last Admin: 02/05/17 09:05 Dose: 90 mg Finasteride (Proscar -) 5 mg PO DAILY [facility] Last Admin: 02/05/17 09:05 Dose: 5 mg Non-Formulary Medication (Imatinib Mesylate [Gleevec]) 400 mg PO DAILY@0800 [facility] Last Admin: 02/05/17 08:00 Dose: 400 mg Sodium Chloride ([place] Nasal [place] -) 2 spray NS TID PRN PRN Reason: NASAL CONGESTION Last Admin: 02/02/17 16:18 Dose: 2 sprays Warfarin Sodium (Coumadin -) 3 mg PO DAILY@1800 [facility] Last Admin: 02/04/17 17:03 Dose: 3 mg - Objective Vital Signs: Vital Signs Temperature 98.5 F 02/05/17 05:10 Pulse Rate 68 02/05/17 05:10 Respiratory Rate 18 02/05/17 05:10 Blood Pressure 122/69 02/05/17 05:10 O2 Sat by Pulse Oximetry (%) 98 02/04/17 22:00 Constitutional: Yes: No Distress, Calm Eyes: Yes: Conjunctiva Clear, EOM Intact, PERRL HENT: Yes: Atraumatic, Normocephalic Neck: Yes: Supple, Trachea Midline Cardiovascular: Yes: Regular Rate and Rhythm, S1, S2. No: Bradycardia, Tachycardia, Pulse Irregular, Bruit, JVD, Gallop, Murmur, Rub, S3, S4, Varicosities Respiratory: Yes: Regular, CTA Bilaterally. No: Rales, Rhonchi, Wheezes Gastrointestinal: Yes: Normal Bowel Sounds, Soft. No: Distention, Tenderness Musculoskeletal: Yes: WNL Extremities: Yes: WNL Edema: RUE: 1+, LLE: Trace, RLE: Trace Peripheral Pulses WNL: Yes Peripheral Pulses: Left Doralis Pedis: 2+, Right Dorsalis Pedis: 2+ Neurological: Yes: Alert, Oriented Psychiatric: Yes: Alert, Oriented Labs: CBC, BMP 02/05/17 07:00 02/05/17 07:00 INR, PTT INR 2.44 (0.82-1.09) H 02/05/17 07:00 - ....Imaging Chest X-ray: Report Reviewed, Image Reviewed EKG: Report Reviewed, Image Reviewed Other: Report Reviewed, Image Reviewed (tele-nsr, sinus arrhythmia, apcs, pvcs, no further NSVT since 02/03) Assessment/Plan 56M h/o CML, BPH, admitted with acute onset of chest tightness and shortness of breath, followed by syncope found to have pulmonary embolism. Pulmonary embolism/DVT -receiving Lovenox bridge to coumadin -INR 2.44 today, 2.13 yesterday -heme, pulmonary following Chest pain/sob/syncope-secondary to large PE -elevated troponin due to PE -cardiac cath 2015 showed non-obs CAD -statin stopped due to elevated LFTs Arrhythmia-5 beats NSVT on tele 02/03, none since then -likely due to PE -cont tele until discharge -outpatient cardiac follow up
--- NOTE | 2017-02-05 13:55 | PN ---
Progress Note (short form) - Note Progress Note: PULMONARY OFFERS NO COMPLAINTS VSS/AFEBRILE/SPO2 98% R/A ANICTERIC CLEAR B/L BREATH SOUNDS S1S2 BS+ OBESE MILD LEFT CALF EDEMA WITH "TIGHTNESS" TO PALPATION INR 2.4 IMAGES REVIEWED Acute Pulmonary Emboli LLE DVT Right Heart Strain Chronic Myeloid Leukemia - continue anticoagulation, - O2 as needed - OOB to chair - discharge planning BELLA SIMMS MD
[2017-02-05] MEDS: WARFARIN NA 3 MG TABLET PO SCH (17:04)
--- NOTE | 2017-02-05 18:00 | PN ---
Progress Note (short form) - Note Progress Note: Subjective: The patient was seen and examined at the bedside, he has no complaints at this time No NSVT on tele since 02/03 Current Medications Generic Name Dose Route Start Last Admin Trade Name Freq PRN Reason Stop Dose Admin Enoxaparin Sodium 90 mg 02/01/17 21:00 02/05/17 09:05 Lovenox - SQ 90 mg Q12H IVA Administration Finasteride 5 mg 02/01/17 10:00 02/05/17 09:05 Proscar - PO 5 mg DAILY IVA Administration Non-Formulary Medication 400 mg 02/01/17 08:00 02/05/17 08:00 Imatinib Mesylate [Gleevec] PO 400 mg DAILY@0800 IVA Administration Sodium Chloride 2 spray 01/31/17 17:39 02/02/17 16:18 [place] Nasal [place] - NS 2 sprays TID PRN Administration NASAL CONGESTION Warfarin Sodium 3 mg 02/04/17 18:00 02/05/17 17:04 Coumadin - PO 3 mg DAILY@1800 IVA Administration Objective: Vital Signs Period Temp Pulse Resp BP Sys/Correa Pulse Ox Last 24 Hr 97.9 F-98.5 F 66-85 18-20 107-130/56-70 94-98 Physical Exam: General: NAD, A&x3 Lungs: CTA bilaterally Heart: RRR, S1S2 Abd: Soft, non-tender, non-distended. Normoactive bowel sounds. No CVA tenderness Ext: Warm, well-perfused. 2+ DP/PT bilaterally Neuro: CN 2-12 intact CBCD WBC 5.8 K/mm3 (4.0-10.0) 02/05/17 07:00 RBC 5.00 M/mm3 (4.00-5.60) 02/05/17 07:00 Hgb 14.7 GM/dL (11.7-16.9) 02/05/17 07:00 Hct 45.7 % (35.4-49) 02/05/17 07:00 MCV 91.3 fl (80-96) 02/05/17 07:00 MCHC 32.2 g/dl (32.0-35.9) 02/05/17 07:00 RDW 14.2 % (11.9-15.9) 02/05/17 07:00 Plt Count 242 K/MM3 (134-434) 02/05/17 07:00 MPV 8.4 fl (7.5-11.1) 02/05/17 07:00 CMP Sodium 138 mmol/L (136-145) 02/05/17 07:00 Potassium 4.4 mmol/L (3.5-5.1) 02/05/17 07:00 Chloride 105 mmol/L (98-107) 02/05/17 07:00 Carbon Dioxide 23 mmol/L (21-32) 02/05/17 07:00 Anion Gap 10 (8-16) 02/05/17 07:00 BUN 13 mg/dL (7-18) D 02/05/17 07:00 Creatinine 1.3 mg/dL (0.7-1.3) 02/05/17 07:00 Creat Clearance w eGFR 56.90 (>60) 02/05/17 07:00 Random Glucose 92 mg/dL (74-106) 02/05/17 07:00 Calcium 9.1 mg/dL (8.5-10.1) 02/05/17 07:00 Total Bilirubin 0.6 mg/dL (0.2-1.0) D 02/05/17 07:00 AST 88 U/L (15-37) H 02/05/17 07:00 ALT 164 U/L (12-78) H D 02/05/17 07:00 Alkaline Phosphatase 72 U/L (45-117) 02/05/17 07:00 Total Protein 7.3 g/dl (6.4-8.2) 02/05/17 07:00 Albumin 3.8 g/dl (3.4-5.0) 02/05/17 07:00 CARDIAC ENZYMES Creatine Kinase 223 IU/L (39-308) 01/29/17 15:40 Troponin I 1.62 ng/ml (0.00-0.05) H* 01/29/17 21:30 Microbiology 01/30/17 03:55 Urine - Urine Clean Catch Urine Culture - Final NO GROWTH OBTAINED Assessment: This is a 56 year old male with PMHx of CML x4 years (in remission) , BPH who presented to the ED with left high pain and shortness of breath. Plan: 1) Acute pulmonary edema, Left DVT - Likely provoked - ECHO: RV systolic function is moderately reduced. No evidence for an atrial septal defect. RV systolic pressure is elevated. Moderate pulmonary hypertension - Elevated trop, normal BNP - Attempt at thrombectomy but was stopped due to arrhythmia inducement - Lovenox 90mg sq bid bridge to Coumadin, INR therapeutic today, can discontinue Lovenox tomorrow if INR remains therapeutic - Gleevac can increase Coumadin level. Continue Coumadin 3mg po qhs. Caution to not cause supratherapeutic INR - Ongoing hematology workup 2) ASHLEY - Kidney/bladder ultrasound with morphologically normal kidneys with no evidence of significant hydronephrosis - FeNa 0.2%: prerenal - ASHLEY may be from hypotensive episode on 02/02 with BP charted as 95/62 - Cr continues to improve 3) Worsening liver function - Likely 2/2 high dose lipitor - Discontinued lipitor - Continues to be elevated - F/u liver ultrasound tomorrow 4) CML - Stable - Continue Gleevac 5) F/E/N: - Regular diet - Monitor electrolytes 6) Prophylaxis: - On full dose Lovenox bridge to Coumadin - OOB ambulating 7) Dispo: - Requires continued inpatient care CODE STATUS: FULL CODE Visit type - Emergency Visit Emergency Visit: Yes ED Registration Date: 01/30/17 Care time: The patient presented to the Emergency Department on the above date and was hospitalized for further evaluation of their emergent condition. - New Patient This patient is new to me today: No - Critical Care Critical Care patient: No
[2017-02-06 08:06] LABS: MCH 29.4 pg (25.7-33.7); MEAN CELL VOLUME 91.9 fl (80-96); MEAN PLT VOLUME 8.3 fl (7.5-11.1); PLATELET COUNT 264 K/MM3 (134-434); RDW 14.1 % (11.9-15.9); WHITE BLOOD COUNT 6.1 K/mm3 (4.0-10.0)
[2017-02-06 08:31] LABS: INR 2.04 (0.82-1.09); PROTHROMBIN TIME (PATIENT) 23.1 SEC (9.98-11.88)
[2017-02-06 08:34] LABS: ALBUMIN 3.7 g/dl (3.4-5.0); ANION GAP 8 (8-16); CALCIUM 8.7 mg/dL (8.5-10.1); CO2 23 mmol/L (21-32); GLUCOSE,RANDOM 94 mg/dL (74-106)
[2017-02-06 08:37] LABS: ALK PHOS 72 U/L (45-117); BILIRUBIN,TOTAL 0.4 mg/dL (0.2-1.0); CREATININE 1.4 mg/dL (0.7-1.3); SGOT/AST 68 U/L (15-37); SGPT/ALT 151 U/L (12-78); TOT PROT 7.2 g/dl (6.4-8.2)
[2017-02-06] MEDS: ENOXAPARIN NA (PORCINE) 100 MG/1 ML DISP.SYRIN SQ SCH ×2 (09:01→21:28)
[2017-02-06] MEDS: IMATINIB MESYLATE 400 MG PO SCH (09:01)
[2017-02-06] MEDS: FINASTERIDE 5 MG TABLET (FP) PO SCH (09:02)
--- NOTE | 2017-02-06 11:07 | PN ---
Progress Note, Physician History of Present Illness: PULMONARY ALERT,NAD,-SOB,COUGH,-CP - Current Medication List Current Medications: Active Medications Enoxaparin Sodium (Lovenox -) 90 mg SQ Q12H [facility] Last Admin: 02/06/17 09:01 Dose: Not Given Finasteride (Proscar -) 5 mg PO DAILY [facility] Last Admin: 02/06/17 09:02 Dose: 5 mg Non-Formulary Medication (Imatinib Mesylate [Gleevec]) 400 mg PO DAILY@0800 [facility] Last Admin: 02/06/17 09:01 Dose: 400 mg Sodium Chloride ([place] Nasal [place] -) 2 spray NS TID PRN PRN Reason: NASAL CONGESTION Last Admin: 02/02/17 16:18 Dose: 2 sprays Warfarin Sodium (Coumadin -) 3 mg PO DAILY@1800 [facility] Last Admin: 02/05/17 17:04 Dose: 3 mg - Objective Vital Signs: Vital Signs Temperature 98 F 02/06/17 09:00 Pulse Rate 72 02/06/17 09:00 Respiratory Rate 18 02/06/17 09:00 Blood Pressure 120/72 02/06/17 09:00 O2 Sat by Pulse Oximetry (%) 96 02/06/17 10:00 Constitutional: Yes: Well Nourished, Calm Eyes: Yes: WNL HENT: Yes: WNL Neck: Yes: WNL Cardiovascular: Yes: Regular Rate and Rhythm, S1, S2 Respiratory: Yes: CTA Bilaterally Gastrointestinal: Yes: Normal Bowel Sounds, Soft Extremities: Yes: WNL Edema: No Labs: CBC, BMP 02/06/17 06:58 02/06/17 06:58 INR, PTT INR 2.04 (0.82-1.09) H 02/06/17 06:58 Problem List - Problems (1) CML (chronic myelocytic leukemia) Code(s): C92.10 - CHRONIC MYELOID LEUK, BCR/ABL-POSITIVE, NOT ACHIEVE REMIS (2) DVT (deep venous thrombosis) Code(s): I82.409 - ACUTE EMBOLISM AND THOMBOS UNSP DEEP VN UNSP LOWER EXTREMITY (3) Elevated LFTs Code(s): R79.89 - OTHER SPECIFIED ABNORMAL FINDINGS OF BLOOD CHEMISTRY (4) Elevated troponin Code(s): R74.8 - ABNORMAL LEVELS OF OTHER SERUM ENZYMES (5) Pulmonary embolism Code(s): I26.99 - OTHER PULMONARY EMBOLISM WITHOUT ACUTE COR PULMONALE (6) Syncope and collapse Code(s): R55 - SYNCOPE AND COLLAPSE Assessment/Plan Acute Pulmonary Emboli S/P Thrombolysis LLE DVT Right Heart Strain Chronic Myeloid Leukemia - continue anticoagulation, - O2 as needed - OOB to chair - F/U Echo outpatient DR ELIZABETH
--- NOTE | 2017-02-06 13:08 | PN ---
Progress Note, Physician History of Present Illness: 56 yr old black man with PMHx CML, BPH, presents to the ED after the acute onset of chest tightness and shortness of breath that began after shoveling snow today. Patient and report that he has been complaining of cough for the last week--was seen in urgent care and diagnosed with bronchitis. Awoke this morning with a subjective feeling of tightness in his left leg. Despite this, he was helping his shovel snow this morning. Patient did not experience chest tightness or shortness of breath while shoveling, but after going up and down the stairs quickly, he developed tightness in his chest and became short of breath. reports that he then collapsed and was briefly unconscious. On arrival to the ED, patient walked in with assistance from his , but then collapsed at the door of the ED. Did not loose consciousness and was able to get onto a stretcher with assistance. Patient and deny cardiac history. Had coronary angiogram (?February of 2016 ) that was reportedly showed nonobstructive CAD. Pt's says they had several long-distance car trips in the past few weeks, including round-trip to [place] within the past 10 days (pt was passenger ; they often did not get out of the car for hours). - Current Medication List Current Medications: Active Medications Enoxaparin Sodium (Lovenox -) 90 mg SQ Q12H [facility] Last Admin: 02/06/17 09:01 Dose: Not Given Finasteride (Proscar -) 5 mg PO DAILY [facility] Last Admin: 02/06/17 09:02 Dose: 5 mg Non-Formulary Medication (Imatinib Mesylate [Gleevec]) 400 mg PO DAILY@0800 [facility] Last Admin: 02/06/17 09:01 Dose: 400 mg Sodium Chloride ([place] Nasal [place] -) 2 spray NS TID PRN PRN Reason: NASAL CONGESTION Last Admin: 02/02/17 16:18 Dose: 2 sprays Warfarin Sodium (Coumadin -) 3 mg PO DAILY@1800 [facility] Last Admin: 02/05/17 17:04 Dose: 3 mg - Objective Vital Signs: Vital Signs Temperature 98 F 02/06/17 09:00 Pulse Rate 72 02/06/17 09:00 Respiratory Rate 18 02/06/17 09:00 Blood Pressure 120/72 02/06/17 09:00 O2 Sat by Pulse Oximetry (%) 96 02/06/17 10:00 Eyes: Yes: WNL, Conjunctiva Clear, EOM Intact HENT: Yes: WNL, Atraumatic, Normocephalic Neck: Yes: WNL, Supple, Trachea Midline Cardiovascular: Yes: WNL, Regular Rate and Rhythm Respiratory: Yes: WNL, Regular, CTA Bilaterally Gastrointestinal: Yes: WNL, Normal Bowel Sounds Genitourinary: Yes: WNL Musculoskeletal: Yes: WNL Extremities: Yes: WNL Edema: No Integumentary: Yes: WNL Neurological: Yes: WNL, Alert, Oriented ...Motor Strength: WNL Psychiatric: Yes: WNL Labs: CBC, BMP 02/06/17 06:58 02/06/17 06:58 INR, PTT INR 2.04 (0.82-1.09) H 02/06/17 06:58 Assessment/Plan 56M h/o CML, BPH, admitted with acute onset of chest tightness and shortness of breath, followed by syncope found to have pulmonary embolism. Pulmonary embolism/DVT -receiving Lovenox bridge to coumadin -INR 2.04 -heme, pulmonary following Chest pain/sob/syncope-secondary to large PE -elevated troponin due to PE -cardiac cath 2015 showed non-obs CAD -statin stopped due to elevated LFTs Arrhythmia-5 beats NSVT on tele 02/03, none since then -likely due to PE -cont tele until discharge -outpatient cardiac follow up
[2017-02-06] MEDS: WARFARIN NA 3 MG TABLET PO SCH (17:39)
[2017-02-06] MEDS ORDERED: WARFARIN NA 1 MG TABLET (FP) PO ONE ×2 (18:58→21:15)
--- NOTE | 2017-02-06 21:41 | PN ---
Physical Exam: SUBJECTIVE: Patient seen and examined at bedside. Still has tightness in left calf. OBJECTIVE: Vital Signs Period Temp Pulse Resp BP Sys/Correa Pulse Ox Last 24 Hr 97.8 F-98.8 F 66-72 18-20 104-128/62-72 96 GENERAL: The patient is awake, alert, and fully oriented, in no acute distress. LUNGS: Breath sounds equal, clear to auscultation bilaterally, no wheezes, no crackles, no accessory muscle use. HEART: Regular rate and rhythm, S1, S2 without murmur, rub or gallop. ABDOMEN: Soft, nontender, nondistended, normoactive bowel sounds, no guarding, no rebound EXTREMITIES: 2+ pulses, warm, well-perfused. RLE mildly swollen. NEUROLOGICAL: Cranial nerves II through XII grossly intact. Normal speech, gait not observed. PSYCH: Normal mood, normal affect. SKIN: Warm, dry, normal turgor, no rashes or lesions noted Laboratory Results - last 24 hr 02/06/17 02/06/17 02/06/17 06:58 06:58 06:58 WBC 6.1 RBC 4.94 Hgb 14.5 Hct 45.4 MCV 91.9 MCH 29.4 MCHC 32.0 RDW 14.1 Plt Count 264 MPV 8.3 PT with INR 23.10 H INR 2.04 H PTT (Actin FS) 40.6 H Sodium Potassium Chloride Carbon Dioxide Anion Gap BUN Creatinine Creat Clearance w eGFR Random Glucose Calcium Total Bilirubin AST ALT Alkaline Phosphatase Total Protein Albumin 02/06/17 06:58 WBC RBC Hgb Hct MCV MCH MCHC RDW Plt Count MPV PT with INR INR PTT (Act[place] FS) Sodium 138 Potassium 4.4 Chloride 107 Carbon Dioxide 23 Anion Gap 8 BUN 17 D Creatinine 1.4 H Creat Clearance w eGFR 52.24 Random Glucose 94 Calcium 8.7 Total Bilirubin 0.4 D AST 68 H D ALT 151 H Alkaline Phosphatase 72 Total Protein 7.2 Albumin 3.7 Active Medications Generic Name Dose Route Start Last Admin Trade Name Freq PRN Reason Stop Dose Admin Enoxaparin Sodium 90 mg 02/01/17 21:00 02/06/17 21:28 Lovenox - SQ Not Given Q12H IVA Finasteride 5 mg 02/01/17 10:00 02/06/17 09:02 Proscar - PO 5 mg DAILY IVA Administration Non-Formulary Medication 400 mg 02/01/17 08:00 02/06/17 09:01 Imatinib Mesylate [Gleevec] PO 400 mg DAILY@0800 [facility] Administration Sodium Chloride 2 spray 01/31/17 17:39 02/02/17 16:18 [place] Nasal [place] - NS 2 sprays TID PRN Administration NASAL CONGESTION Warfarin Sodium 3 mg 02/04/17 18:00 02/06/17 17:39 Coumadin - PO 3 mg DAILY@1800 [facility] Administration ASSESSMENT/PLAN 56 year-old male with a PMH significant for chronic myeloid leukemia x 4 years, in remission, and BPH. Admitted for LLE DVT and submassive bilateral PEs. LLE DVT --01/29 LLE: partially occlusive thrombus of left popliteal and posterior tibial veins --likely provoked from prolonged car travel --INR therapeutic @ 2.04; dose coumadin 4mg today, repeat in am --coumadin and Gleevac interact along the CY and P glycoprotein pathways , and coumadin levels can increase; patient will need INR testing twice weekly as outpatient for at least three months --heme following Submassive bilateral pulmonary emboli Right heart systolic failure Diastolic dysfunction Demand ischemia --01/29 CTA: bilateral pulmonary emboli right and left main pulmonary arteries extending into all lobar, segmental, and subsegmental branches bilaterally; right heart relatively prominent in size with flattening of the interventricular septum --catheter-directed tPA unsuccessful due to cardiac arrhythmias during procedure --no further episodes of NSVT on telemetry since 02/03 --will need outpatient repeat echo and cardiac followup ASHLEY, improving --Cr 1.7 on admission, 1.4 today, baseline 1.2 Syncope --secondary to submassive PE --CT head negative for acute pathology Chronic myeloid leukemia --in molecular remission, stable --continue Gleevac BPH --continue Proscar Dispo: discharge planning in progress. Patient will need twice weekly INR checks. Needs a new PCP who will assume care. 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 Full code. Visit type - Emergency Visit Emergency Visit: Yes ED Registration Date: 01/30/17 Care time: The patient presented to the Emergency Department on the above date and was hospitalized for further evaluation of their emergent condition. - New Patient This patient is new to me today: No - Critical Care Critical Care patient: No
--- NOTE | 2017-02-06 23:12 | PN ---
Progress Note (short form) - Note Progress Note: Patient seen and examined feels well Last Vital Signs Temp Pulse Resp BP Pulse Ox 98.2 F 63 20 107/56 96 02/06/17 21:00 02/06/17 21:00 02/06/17 21:00 02/06/17 21:00 02/06/17 21:00 Cor: RSR, No murmurs, No gallops Lungs: Clear to P&A Abd: Soft, Normal bowel sounds, No organomegaly Ext:No significant edema Home Medication List Medication Instructions Recorded Confirmed Type Imatinib Mesylate [Gleevec] 400 mg PO DAILY 12/28/15 01/29/17 History Benzonatate 100 mg PO Q8H PRN 01/29/17 01/29/17 History Finasteride 5 mg PO DAILY 01/29/17 01/29/17 History Active Medications Generic Name Dose Route Start Last Admin Trade Name Freq PRN Reason Stop Dose Admin Enoxaparin Sodium 90 mg 02/01/17 21:00 02/06/17 21:28 Lovenox - SQ Not Given Q12H [facility] Finasteride 5 mg 02/01/17 10:00 02/06/17 09:02 Proscar - PO 5 mg DAILY [facility] Administration Non-Formulary Medication 400 mg 02/01/17 08:00 02/06/17 09:01 Imatinib Mesylate [Gleevec] PO 400 mg DAILY@0800 [facility] Administration Sodium Chloride 2 spray 01/31/17 17:39 02/02/17 16:18 [place] Nasal [place] - NS 2 sprays TID PRN Administration NASAL CONGESTION Warfarin Sodium 3 mg 02/04/17 18:00 02/06/17 17:39 Coumadin - PO 3 mg DAILY@1800 [facility] Administration Abnormal Lab Results 02/06/17 02/06/17 02/06/17 06:58 06:58 06:58 PT with INR 23.10 H INR 2.04 H PTT (Actin FS) 40.6 H Creatinine 1.4 H AST 68 H D ALT 151 H a/p 56 y/o patient with cml, provoked dvt/pe b/l pe with rt. heart strain thrombectomy aborted due to arrhythmias lovenox bridging to coumadin discussed pros/cons of coumadin vs noacs given interaction between gleevec and xeralto/eliquis ( CY and P glycoprotein pathways)--gleevec could increase exposure of xeralto/eliquis. It could also increase coumadin levels . since coiumadin can be monitored and adjucted witll bridge lovenox to coumadin.Monitor INR levels closely Other choice is to consider lovenox for 3months gven provoked DVT/PE rediscussed these options with paatient and need for close monitoring of INR as outpatient Patient very upset about not going home today. Discussed the need to stay untill INR stabilized,. discussed need for close INR monitoring as outpatient coumadin 4mg today Wants to /u with previous PMD Dr. wallace and Dr. 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
[2017-02-07 07:27] LABS: BASO % 0.3 % (0-2.0); MCH 29.7 pg (25.7-33.7); MCHC 32.5 g/dl (32.0-35.9); MEAN CELL VOLUME 91.5 fl (80-96); NEUT % 60.9 % (42.8-82.8); PLATELET COUNT 245 K/MM3 (134-434); WHITE BLOOD COUNT 6.2 K/mm3 (4.0-10.0)
[2017-02-07 07:33] LABS: INR 2.04 (0.82-1.09); PROTHROMBIN TIME (PATIENT) 23.1 SEC (9.98-11.88)
[2017-02-07 07:36] LABS: ACTIVATED PTT 37.4 SECONDS (26.9-34.4)
[2017-02-07 07:41] LABS: ALBUMIN 3.4 g/dl (3.4-5.0); ALK PHOS 66 U/L (45-117); ANION GAP 9 (8-16); BILIRUBIN,TOTAL 0.5 mg/dL (0.2-1.0); CALCIUM 8.6 mg/dL (8.5-10.1); CO2 25 mmol/L (21-32); CREATININE 1.3 mg/dL (0.7-1.3); GLUCOSE,RANDOM 83 mg/dL (74-106); SGOT/AST 82 U/L (15-37); SGPT/ALT 168 U/L (12-78); TOT PROT 6.8 g/dl (6.4-8.2)
[2017-02-07] MEDS: FINASTERIDE 5 MG TABLET (FP) PO SCH (09:12)
[2017-02-07] MEDS: IMATINIB MESYLATE 400 MG PO SCH (09:14)
[2017-02-07 10:13] VITALS: BP 129/74; PULSE 79; TEMP 97.9
--- NOTE | 2017-02-07 10:36 | PN ---
Progress Note, Physician Chief Complaint: Pt A&Ox3; ambulating well; no chest pain, shortness of breath, or palpitations. No dizziness. History of Present Illness: 56 yr old black man with PMHx CML, BPH, presents to the ED after the acute onset of chest tightness and shortness of breath that began after shoveling snow today. Patient and report that he has been complaining of cough for the last week--was seen in urgent care and diagnosed with bronchitis. Awoke this morning with a subjective feeling of tightness in his left leg. Despite this, he was helping his shovel snow this morning. Patient did not experience chest tightness or shortness of breath while shoveling, but after going up and down the stairs quickly, he developed tightness in his chest and became short of breath. reports that he then collapsed and was briefly unconscious. On arrival to the ED, patient walked in with assistance from his , but then collapsed at the door of the ED. Did not lose consciousness and was able to get onto a stretcher with assistance. Patient and deny cardiac history. Had coronary angiogram (February of 2015 ) that showed nonobstructive CAD. 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 Pt's says they had several long-distance car trips in the past few weeks, including round-trip to [place] within the past 10 days (pt was passenger ; they often did not get out of the car for hours). - Current Medication List Current Medications: Active Medications Enoxaparin Sodium (Lovenox -) 90 mg SQ Q12H [facility] Last Admin: 02/06/17 21:28 Dose: Not Given Finasteride (Proscar -) 5 mg PO DAILY [facility] Last Admin: 02/07/17 09:12 Dose: 5 mg Non-Formulary Medication (Imatinib Mesylate [Gleevec]) 400 mg PO DAILY@0800 [facility] Last Admin: 02/07/17 09:14 Dose: 400 mg Sodium Chloride ([place] Nasal [place] -) 2 spray NS TID PRN PRN Reason: NASAL CONGESTION Last Admin: 02/02/17 16:18 Dose: 2 sprays Warfarin Sodium (Coumadin -) 3 mg PO DAILY@1800 [facility] Last Admin: 02/06/17 17:39 Dose: 3 mg - Objective Vital Signs: Vital Signs Temperature 97.9 F 02/07/17 09:00 Pulse Rate 79 02/07/17 09:00 Respiratory Rate 18 02/07/17 10:00 Blood Pressure 129/74 02/07/17 09:00 O2 Sat by Pulse Oximetry (%) 96 02/06/17 21:00 Constitutional: Yes: Calm Eyes: Yes: WNL HENT: Yes: WNL Neck: Yes: WNL Cardiovascular: Yes: WNL Labs: CBC, BMP 02/07/17 05:05 02/07/17 05:05 INR, PTT INR 2.04 (0.82-1.09) H 02/07/17 05:05 Problem List - Problems (1) Pulmonary embolism Code(s): I26.99 - OTHER PULMONARY EMBOLISM WITHOUT ACUTE COR PULMONALE (2) Syncope and collapse Code(s): R55 - SYNCOPE AND COLLAPSE (3) Elevated troponin Code(s): R74.8 - ABNORMAL LEVELS OF OTHER SERUM ENZYMES (4) Elevated LFTs Code(s): R79.89 - OTHER SPECIFIED ABNORMAL FINDINGS OF BLOOD CHEMISTRY
--- NOTE | 2017-02-07 10:40 | PN ---
Progress Note, Physician History of Present Illness: PULMONARY ALERT,NO DISTRESS,-CP,-SOB - Current Medication List Current Medications: Active Medications Enoxaparin Sodium (Lovenox -) 90 mg SQ Q12H [facility] Last Admin: 02/06/17 21:28 Dose: Not Given Finasteride (Proscar -) 5 mg PO DAILY [facility] Last Admin: 02/07/17 09:12 Dose: 5 mg Non-Formulary Medication (Imatinib Mesylate [Gleevec]) 400 mg PO DAILY@0800 [facility] Last Admin: 02/07/17 09:14 Dose: 400 mg Sodium Chloride ([place] Nasal [place] -) 2 spray NS TID PRN PRN Reason: NASAL CONGESTION Last Admin: 02/02/17 16:18 Dose: 2 sprays Warfarin Sodium (Coumadin -) 3 mg PO DAILY@1800 [facility] Last Admin: 02/06/17 17:39 Dose: 3 mg - Objective Vital Signs: Vital Signs Temperature 97.9 F 02/07/17 09:00 Pulse Rate 79 02/07/17 09:00 Respiratory Rate 18 02/07/17 10:00 Blood Pressure 129/74 02/07/17 09:00 O2 Sat by Pulse Oximetry (%) 96 02/06/17 21:00 Constitutional: Yes: Well Nourished, Calm Eyes: Yes: WNL HENT: Yes: WNL Neck: Yes: WNL Cardiovascular: Yes: Regular Rate and Rhythm, S1, S2 Respiratory: Yes: CTA Bilaterally Gastrointestinal: Yes: Normal Bowel Sounds, Soft Extremities: Yes: WNL Edema: Yes (MILD SWELLING LLE) Labs: CBC, BMP 02/07/17 05:05 02/07/17 05:05 INR, PTT INR 2.04 (0.82-1.09) H 02/07/17 05:05 Problem List - Problems (1) CML (chronic myelocytic leukemia) Code(s): C92.10 - CHRONIC MYELOID LEUK, BCR/ABL-POSITIVE, NOT ACHIEVE REMIS (2) DVT (deep venous thrombosis) Code(s): I82.409 - ACUTE EMBOLISM AND THOMBOS UNSP DEEP VN UNSP LOWER EXTREMITY (3) Elevated LFTs Code(s): R79.89 - OTHER SPECIFIED ABNORMAL FINDINGS OF BLOOD CHEMISTRY (4) Elevated troponin Code(s): R74.8 - ABNORMAL LEVELS OF OTHER SERUM ENZYMES (5) Pulmonary embolism Code(s): I26.99 - OTHER PULMONARY EMBOLISM WITHOUT ACUTE COR PULMONALE (6) Syncope and collapse Code(s): R55 - SYNCOPE AND COLLAPSE Assessment/Plan Acute Pulmonary Emboli S/P Thrombolysis LLE DVT Right Heart Strain Chronic Myeloid Leukemia - continue anticoagulation, - O2 as needed - OOB to chair - F/U Echo outpatient - PFTS WITH DLCO outpatient DR ELIZABETH
[2017-02-07] MEDS: ENOXAPARIN NA (PORCINE) 100 MG/1 ML DISP.SYRIN SQ SCH (10:46)
--- NOTE | 2017-02-07 11:11 | DS ---
Physical Exam: SUBJECTIVE: Patient seen and examined OBJECTIVE: Vital Signs Period Temp Pulse Resp BP Sys/Correa Pulse Ox Last 24 Hr 97.8 F-98.2 F 63-79 18-20 102-129/56-74 96 PHYSICAL EXAM GENERAL: The patient is awake, alert, and fully oriented, in no acute distress. HEAD: Normal with no signs of trauma. EYES: PERRL, extraocular movements intact, sclera anicteric, conjunctiva clear. ENT: Ears normal, nares patent, oropharynx clear without exudates, moist mucous membranes. NECK: Trachea midline, full range of motion, supple. LUNGS: Breath sounds equal, clear to auscultation bilaterally, no wheezes, no crackles, no accessory muscle use. HEART: Regular rate and rhythm, S1, S2 without murmur, rub or gallop. ABDOMEN: Soft, nontender, nondistended, normoactive bowel sounds, no guarding, no rebound, no hepatosplenomegaly, no masses. EXTREMITIES: 2+ pulses, warm, well-perfused, no edema. NEUROLOGICAL: Cranial nerves II through XII grossly intact. Normal speech, gait not observed. PSYCH: Normal mood, normal affect. SKIN: Warm, dry, normal turgor, no rashes or lesions noted. LABS Laboratory Results - last 24 hr 02/07/17 02/07/17 02/07/17 05:05 05:05 05:05 WBC 6.2 RBC 4.77 Hgb 14.2 Hct 43.7 MCV 91.5 MCH 29.7 MCHC 32.5 RDW 14.0 Plt Count 245 MPV 8.0 Neutrophils % 60.9 Lymphocytes % 28.6 D Monocytes % 8.2 Eosinophils % 2.0 Basophils % 0.3 PT with INR 23.10 H INR 2.04 H PTT (Actin FS) 37.4 H Sodium 137 Potassium 4.5 Chloride 103 Carbon Dioxide 25 Anion Gap 9 BUN 17 Creatinine 1.3 Creat Clearance w eGFR 56.90 Random Glucose 83 Calcium 8.6 Total Bilirubin 0.5 D AST 82 H D ALT 168 H Alkaline Phosphatase 66 Total Protein 6.8 Albumin 3.4 HOSPITAL COURSE: Date of Admission:01/30/17 Date of Discharge: 02/07/17 Pre hospital course 56 year-old male with a PMH significant for chronic myeloid leukemia x 4 years, in remission, and BPH. Patient has been traveling extensively, most recently drove round trip to [place] during , spending about 18- 20 hours in a car. Yesterday, patient experienced pain in his left medial thigh and he applied a heating pad. Today, the left medial thigh pain was gone, replaced by left calf circumferential pain and swelling. Despite the pain, patient went outside to help his shovel snow. His daughter needed something from the house so he ran into the house and up and down a flight of stairs. He felt his heart racing, became lightheaded, and he bent over to catch his breath. The next thing he remembered was his and daughter crying and his daughter on the phone calling 911. Patient refused an ambulance, so his drove him to the [place] ED. She noticed his skin was cold and clammy. As his helped him walk into the ED he syncopized a second time. Patient had a cardiac cath 02/2016 which showed clean coronaries. PCP: Dr. Sorenson/Dr. Hinson Cardiology: Drs. Hi/Levi Cardiology interventionalist: Dr. Wan Oncology: Dr. Lang Neurology: Dr. Gay ER course (1) BP 137/67, pulse 78, SpO2 97-100% room air (2) ECG sinus rhythm @ 73bpm with nonspecific ST and T wave abnormalities (3) CXR unremarkable (4) US LLE: left popliteal thrombus and posterior tibial vein thrombus (5) troponin neg x 1 (6) Cr 1.7; NS x 1L given (7) Lovenox 100mg subq x 1 given (8) ASA 325mg given (9) transferred to [facility] to telemetry Subsequent hospital course 56 year-old male with a PMH significant for chronic myeloid leukemia x 4 years, in remission, and BPH. Admitted for LLE DVT and submassive bilateral PEs. LLE DVT --01/29 US LLE: partially occlusive thrombus of left popliteal and posterior tibial veins --likely provoked from prolonged car travel --INR therapeutic @ 2.04 at time of discharge --coumadin and Gleevac interact along the CY and P glycoprotein pathways , and coumadin levels can increase; patient will need INR testing twice weekly as outpatient for at least three months Submassive bilateral pulmonary emboli Right heart systolic failure Diastolic dysfunction Demand ischemia --01/29 CTA: bilateral pulmonary emboli right and left main pulmonary arteries extending into all lobar, segmental, and subsegmental branches bilaterally; right heart relatively prominent in size with flattening of the interventricular septum --catheter-directed tPA unsuccessful due to cardiac arrhythmias during procedure --no further episodes of NSVT on telemetry since 02/03 --will need outpatient repeat echo and cardiac followup ASHELY, improving --Cr 1.7 on admission, 1.4 at time of discharge Syncope --secondary to submassive PE --CT head negative for acute pathology Chronic myeloid leukemia --in molecular remission, stable --continue Gleevac BPH --continued Proscar Minutes to complete discharge: 60 Discharge Summary Reason For Visit: SYNCOPE,DVT & R/O PE Current Active Problems CML (chronic myelocytic leukemia) (Acute) DVT (deep venous thrombosis) (Acute) Elevated LFTs (Acute) Elevated troponin (Acute) Pulmonary embolism (Acute) Syncope and collapse (Acute) Condition: Improved - Instructions Diet, Activity, Other Instructions: You have an appointment with Dr. Hinson tomorrow, 02/08/17 at 11:15am. He will check your INR. It is strongly recommended that you have your INR checked twice weekly. You should also follow up with Dr. Sims (tax audit manager) and Dr. Anne ( oncologist/tallow pumper). Return to the emergency department for any new or worsening symptoms. Referrals: Lisa Sorenson MD [Staff Physician] - Disposition: HOME - Home Medications Comprehensive Discharge Medication List: Ambulatory Orders Imatinib Mesylate [Gleevec] 400 mg PO DAILY 12/28/15 Benzonatate 100 mg PO Q8H PRN 01/29/17 Finasteride 5 mg PO DAILY 01/29/17 Warfarin Sodium 1 mg PO DAILY #30 tablet 02/07/17 Warfarin Sodium 2 mg PO DAILY #30 tablet 02/07/17 Warfarin Sodium 5 mg PO DAILY #30 tablet 02/07/17 This patient is new to me today: No Emergency Visit: Yes ED Registration Date: 01/30/17 Care time: The patient presented to the Emergency Department on the above date and was hospitalized for further evaluation of their emergent condition. Critical Care patient: No - Discharge Referral Referred to [facility] No
== END 2017-02-07 14:14 | disposition home or self-care (01) | DRG 176 ==
LOC: FER 08:07 → J4W 14:09 → INTOOBSV 14:09 → UNDOADMOB 14:09 → J4W 15:09 → JICU 23:40 → OBSVTOIN 01-30 10:30 → J4W 02-01 20:00
PROVIDERS: ADMIT Internal Medicine; ATTEND Nurse Practitioner Acute Care
DX: I26.99 Other pulmonary embolism without acute cor pulmonale (principal); I82.432 Acute embolism and thrombosis of left popliteal vein; I82.442 Acute embolism and thrombosis of left tibial vein; C92.11 Chronic myeloid leukemia, BCR/ABL-positive, in remission; I24.8 Other forms of acute ischemic heart disease; N17.9 Acute kidney failure, unspecified; I47.2 Ventricular tachycardia; I50.20 Unspecified systolic (congestive) heart failure; N40.0 Benign prostatic hyperplasia without lower urinary tract symptoms; F41.8 Other specified anxiety disorders; R55 Syncope and collapse; I08.1 Rheumatic disorders of both mitral and tricuspid valves; R07.89 Other chest pain; I27.20 Pulmonary hypertension, unspecified; E86.0 Dehydration; I49.8 Other specified cardiac arrhythmias; R74.8 Abnormal levels of other serum enzymes; R09.02 Hypoxemia; R79.89 Other specified abnormal findings of blood chemistry; Z53.8 Procedure and treatment not carried out for other reasons
CPT/HCPCS: 36415; 37187; 37212; 61651; 70450-TC; 71010-TC; 71275-TC; 75746-TC; 76705-TC; 76775-TC; 76937-TC; 80048; 80053; 80061; 81003; 82272; 82436; 82550; 82553; 82570; 83721; 83735; 83880; 84100; 84133; 84300; 84443; 84484; 85025; 85027; 85379; 85610; 85730; 86850; 86900; 86901; 87086; 93005; 93010; 93306-TC; 93971-TC; 99283-25; C1769; C1887; C1894; C9999; G0378; J1644

== ENCOUNTER 2017-02-11 13:39 | Inpatient (IN) | payer BC ==
[2017-02-11 13:50] VITALS: BMI 27.6
[2017-02-11 13:59] LABS: BASO % 0.6 % (0-2.0); EOS # 0.2 # (0-4.5); EOS % 2.8 % (0-4.5); LYMPH # 1.8 (8-40); MCH 29.1 pg (25.7-33.7); MCHC 31.7 g/dl (32.0-35.9); MEAN CELL VOLUME 91.7 fl (80-96); MEAN PLT VOLUME 7.4 fl (7.5-11.1); MONO # 0.7 # (3.8-10.2); NEUT # 3.8 # (42.8-82.8); NEUT % 58.2 % (42.8-82.8); PLATELET COUNT 321 K/MM3 (134-434); RDW 14.1 % (11.9-15.9); WHITE BLOOD COUNT 6.5 K/mm3 (4.0-10.0)
[2017-02-11 14:07] LABS: INR 3.13 (0.82-1.09); PROTHROMBIN TIME (PATIENT) 35.4 SEC (9.98-11.88)
[2017-02-11 14:27] LABS: ALBUMIN 3.7 g/dl (3.4-5.0); ANION GAP 9 (8-16); BILIRUBIN,TOTAL 0.4 mg/dL (0.2-1.0); CALCIUM 8.9 mg/dL (8.5-10.1); CO2 25 mmol/L (21-32); CREATININE 1.3 mg/dL (0.7-1.3); GLUCOSE,RANDOM 87 mg/dL (74-106); SGOT/AST 20 U/L (15-37); SGPT/ALT 81 U/L (12-78); TOT PROT 7.3 g/dl (6.4-8.2)
[2017-02-11 14:29] LABS: ALK PHOS 73 U/L (45-117); CPK 159 IU/L (39-308); TROPONIN I 0.02 ng/ml (0.00-0.05)
--- NOTE | 2017-02-11 14:29 | PDOC ---
Attending Attestation - Resident Resident Name: Krista Spencer - ED Attending Attestation I have performed the following: I have examined & evaluated the patient, The case was reviewed & discussed with the resident, I agree w/resident's findings & plan, Exceptions are as noted - HPI HPI: 02/11/17 14:43 56yo M recent dx of provoked PE on 01/29/17 on coumadin (compliant), CML on gleevac p/w R lower CP intermittently since yesterday. CP is more of a tightness he states and is positional. +mild SOB x1 day when ascending stairs only. No LOC. Last coumadin was 3.2, pt was told to hold a dose of coumadin and is concerned by holding this dose, his PE may have progressed. Denies F/C, headache, N/V/D, abd pain, weakness/numbness. INR today is 3.1. - Physicial Exam PE: 02/11/17 14:46 GENERAL: Awake, alert, and fully oriented, in no acute distress HEAD: No signs of trauma EYES: PERRLA, EOMI, sclera anicteric, conjunctiva clear ENT: Auricles normal inspection, hearing grossly normal, nares patent, oropharynx clear without exudates. Moist mucosa NECK: Normal ROM, supple, no lymphadenopathy, JVD, or masses LUNGS: Breath sounds equal, clear to auscultation bilaterally. No wheezes, and no crackles. Speaks in full sentences, no resp distress, O2 sat 99% RA HEART: Regular rate and rhythm, normal S1 and S2, no murmurs, rubs or gallops ABDOMEN: Soft, nontender, normoactive bowel sounds. No guarding, no rebound. No masses EXTREMITIES: Normal range of motion, 1+ edema of LLE, no edema of RLE. No clubbing or cyanosis. No cords, erythema, or tenderness NEUROLOGICAL: Normal speech, cranial nerves intact, negative pronator drift, 5/ 5 strength in all 4 extremities, normal sensation to light touch in all 4 extremities, normal cerebellar exam, normal gait, normal reflexes and tone SKIN: Warm, Dry, normal turgor, no rashes or lesions noted. - Medical Decision Making 02/11/17 17:59 56-year-old male with a recent diagnosis of PE, compliant with Coumadin presents with chest pain. Labs were sent including a troponin and a chest x-ray was obtained. Labs and chest x-ray unremarkable. Pt is therapeutic on coumadin ( INR 3.1). We've placed a call to Dr. Hinson ([phone]) to discuss the case. He requests a repeat CTA and if the pt has a similar clot burden (previous PE had signs of RHS, and large clot burden) he recommends we transfer to a tertiary care center for endovascular intervention as this will be treatment failure. We discussed this plan with the patient, who was hoping to go home. I discussed the concern we have about treatment failure with signs of RHS and large clot burden, he expresses understanding and agrees to stay for the CTA and further management. 02/11/17 19:08 CTA results are pending. Pt is HDS. Pt signed out to Dr. Pruitt for further disposition and management.
--- NOTE | 2017-02-11 15:03 | PDOC ---
History of Present Illness <Krista Spencer - Last Filed: 02/11/17 18:20> <PruittAdina - Last Filed: 02/11/17 20:36> - General Chief Complaint: Chest Pain Stated Complaint: CHEST PAIN Time Seen by Provider: 02/11/17 14:24 - History of Present Illness Initial Comments: This is a 56 YOM with h/o CML (on Gleevec) and recent admission (01/29-02/07/17 ) to [facility] for DVT with PE diagnosed after presenting to ED with syncope. He presents today with intermittent mild right lower chest tightness since yesterday, as well as mild intermittent lightheadedness, mild SOB on climbing stairs, and feelings of anxiety. The patient reports that during his hospital stay, catheter-directed thrombolysis was attempted but he was having palpitations and could not tolerate the procedure. They decided instead to do medical management with coumadin, and the patient has been taking this compliantly and last INR was 3.2 on four days ago. The patient denies any other recent symptoms (no fever, chills, cough, abdominal pain, or any other recent symptoms). (Krista Spencer) Past History - Past Medical History Cardiac Disorders: Yes (palpitations-stress test 02/2016 no cath) COPD: No DVT: No Disorders: Yes - Surgical History Orthopedic Surgery: Yes (hip many years ago) - Immunization History Immunization Up to Date: Yes - Suicide/Smoking/Psychosocial Hx Smoking Status: No Smoking History: Never smoked Have you smoked in the past 12 months: No Number of Cigarettes Smoked Daily: 0 Information on smoking cessation initiated: No Hx Alcohol Use: No Drug/Substance Use Hx: No Substance Use Type: None Hx Substance Use Treatment: No <Krista Spencer - Last Filed: 02/11/17 18:20> <Adina Pruitt - Last Filed: 02/11/17 20:36> - Past Medical History Allergies/Adverse Reactions: Allergies Allergy/AdvReac Type Severity Reaction Status Date / Time No Known Allergies Allergy Verified 02/11/17 13:44 Home Medications: Ambulatory Orders Imatinib Mesylate [Gleevec] 400 mg PO DAILY 12/28/15 Benzonatate 100 mg PO Q8H PRN 01/29/17 Finasteride 5 mg PO DAILY 01/29/17 Warfarin Sodium 4 mg PO HS 02/11/17 Cardiac Specific PMH - Complaint Specific PMHX Abdominal Aortic Aneurysm: No Angina: No Cardiac Arrhythmia: No Cardiac Stent: No GERD: No Pacemaker: No Pulmonary Embolus: No Valvular Heart Disease: No Peripheral Vascular Disease: No <Kritsa Spencer - Last Filed: 02/11/17 18:20> Review of Systems - Review of Systems Able to Perform ROS?: Yes Constitutional: No: Chills, Fever, Unexplained wgt Loss HEENTM: No: Nose Congestion, Throat Pain Respiratory: Yes: SOB with Exertion. No: Cough Cardiac (ROS): Yes: Chest Pain, Edema (LLE), Lightheadedness, Palpitations. No : Syncope ABD/GI: No: Constipated, Diarrhea, Nausea, Vomiting : No: Burning, Dysuria Musculoskeletal: No: Back Pain, Neck Pain Integumentary: No: Bruising, Rash Neurological: No: Headache, Numbness, Tingling, Weakness, Dizziness Endocrine: No: Unexplained Weight Gain, Unexplained Weight Loss <Krista Spencer - Last Filed: 02/11/17 18:20> *Physical Exam - Physical Exam General Appearance: Yes: Nourished, Appropriately Dressed, Other (well appearing adult male accompanied at bedside by his , answering questions appropriately, mildly anxious but understandably so). No: Apparent Distress HEENT: positive: EOMI, MJ, Normal Voice, Hearing Grossly Normal. negative: Scleral Icterus (R), Scleral Icterus (L), Nasal Congestion Neck: positive: Trachea midline, Supple. negative: Tender, Rigid Respiratory/Chest: positive: Lungs Clear, Normal Breath Sounds. negative: Chest Tender, Respiratory Distress, Crackles, Rhonchi, Stridor, Wheezing Cardiovascular: positive: Regular Rhythm, Regular Rate, Edema (1+ pitting edema LLE). negative: Murmur Gastrointestinal/Abdominal: positive: Normal Bowel Sounds, Soft. negative: Tender, Organomegaly, Pulsatile Mass, Guarding Musculoskeletal: positive: Normal Inspection. negative: Decreased Range of Motion, Vertebral Tenderness Extremity: positive: Normal Capillary Refill, Normal Inspection, Normal Range of Motion, Calf Tenderness (left popliteal fossa and proximal calf). negative: Tender, Cyanosis Integumentary: positive: Normal Color, Dry, Warm. negative: Erythema, Rash, Bruising Neurologic: positive: head of transport logistics II-XII NML intact (grossly), Fully Oriented, Alert, Normal Mood/Affect, Normal Response, Motor Strength 5/5, Other (normal gait) <Krista Spencer - Last Filed: 02/11/17 18:20> - Vital Signs Last Vital Signs Temp Pulse Resp BP Pulse Ox 98.1 F 69 18 124/72 99 02/11/17 18:31 02/11/17 18:31 02/11/17 18:31 02/11/17 18:31 02/11/17 18:31 ED Treatment Course - LABORATORY CBC & Chemistry Diagram: 02/11/17 13:45 02/11/17 13:45 <Spencer,Krista - Last Filed: 02/11/17 18:20> - LABORATORY CBC & Chemistry Diagram: 02/11/17 13:45 02/11/17 13:45 <Adina Pruitt - Last Filed: 02/11/17 20:36> - ADDITIONAL ORDERS Additional order review: Laboratory Results 02/11/17 02/11/17 02/11/17 18:45 13:45 13:45 PT with INR 35.40 H INR 3.13 H D Sodium 138 Potassium 4.3 Chloride 104 Carbon Dioxide 25 Anion Gap 9 BUN 14 Creatinine 1.3 Creat Clearance w eGFR 56.90 Random Glucose 87 Calcium 8.9 Total Bilirubin 0.4 AST 20 D ALT 81 H D Alkaline Phosphatase 73 Creatine Kinase 159 Creatine Kinase Index 1.2 CK-MB (CK-2) 1.908 Troponin I 0.03 D 0.02 D B-Natriuretic Peptide 28.97 Total Protein 7.3 Albumin 3.7 02/11/17 13:45 RBC 4.96 MCV 91.7 MCHC 31.7 L RDW 14.1 MPV 7.4 L Neutrophils % 58.2 Lymphocytes % 27.5 Monocytes % 10.9 H Eosinophils % 2.8 Basophils % 0.6 Medical Decision Making <Spencer,Krista - Last Filed: 02/11/17 18:20> <Adina Pruitt - Last Filed: 02/11/17 20:36> - Medical Decision Making This is a 56 YOM with recently diagnosed DVT/PE now on coumadin who p/w chest tightness, SOB, LH x1 day. He states these symptoms are mild and he decided to come into the ED because he has low threshold to see MD now. On exam he has slightly soft pressure for a man of his age and stature but not abnormal, O2 normal, HR wnl. He is in no distress, answers questions appropriately, heart and lung exams unremarkable, LLE 1+ pitting edema and ttp. DDX IBNLT additional PE from LLE DVT, pulmonary infarct, PNA, pleural effusion, cardiac tamponade/effusion, etc. Ordered is CBCD, CMP, cardiac panel, coags, EKG, CXR. 02/11/17 15:37 No abnormalities on lab results. EKG without ischemic or other acute changes. Page placed to Dr. Hinson (patient's PCP) to discuss case and ensure f/u if discharged home. 02/11/17 17:[address] Hinson who is concerned for bilateral submassive PE and recommends transferring patient. Dr. Hinson will be called back ([phone]). Ordered is chest CTA. 02/11/17 17:56 Patient's chest CTA has been completed. 02/11/17 18:21 [facility] is microblogged for potential ED obs case (currently at 4 hours 40 min LOS). Ordered is BNP and repeat troponin. (Krista Spencer) 02/11/17 20:36 Patient Name: ESTEBAN PEGUERO THIS IS A PRELIMINARY REPORT FROM [facility] DATE OF SERVICE: 2017-02-11 17:35:24 IMAGES: [id number] EXAM: CT CTA CHEST with IV contrast HISTORY: Pulmonary embolus. COMPARISON: The previous study performed 01/29/17. FINDINGS: CTA of the chest was performed utilizing 3.0 mm thick slices from the lung apices down to the lower leaves of the diaphragm. Intravenous contrast was administered. 2-D and 3-D reformatted imaging of the pulmonary arteries was obtained in the coronal and sagittal planes. MIP imaging was also performed. There is no evidence of acute consolidation or infiltrate. No active pleural disease is seen. No pulmonary parenchymal nodule or mass is identified. No axillary, hilar, or mediastinal lymphadenopathy is appreciated. The thoracic aorta is normal in caliber. There has been significant improvement in the bilateral pulmonary emboli, with resolution of the right-sided emboli. There is almost complete resolution of the left sided emboli. A small amount of residual pulmonary emboli are noted involving the left lateral basal segment branches. The heart is within normal limits in size. Examination of the visualized abdomen is unremarkable. The visualized osseous structures are without significant interval change. IMPRESSION: 1. Significant improvement in the bilateral pulmonary emboli, with resolution of the right-sided emboli. There is almost complete resolution of the left-sided emboli, with small residual emboli present in the left lateral basal segment branches. Dr. Hinson PMD wants pt admitted for evaluation; however, pt is refusing to stay he wants to sign out AMA. (Adina Pruitt) *DC/Admit/Observation/Transfer <Krista Spencer - Last Filed: 02/11/17 18:20> <Adina Pruitt - Last Filed: 02/11/17 20:36> Diagnosis at time of Disposition: Pulmonary embolism, DVT (deep venous thrombosis), Chest pain - Referrals Referrals: Alfred Mdcaniels MD [Primary Care Provider] - - Patient Instructions - Post Discharge Activity
--- NOTE | 2017-02-11 19:17 | PDOC ---
*Physical Exam - Vital Signs Last Vital Signs Temp Pulse Resp BP Pulse Ox 98.1 F 69 18 124/72 99 02/11/17 18:31 02/11/17 18:31 02/11/17 18:31 02/11/17 18:31 02/11/17 18:31 - Physical Exam Comments: 02/11/17 20:36 GENERAL: Awake, alert, and fully oriented, in no acute distress HEAD: No signs of trauma, normocephalic, atraumatic EYES: PERRLA, EOMI, sclera anicteric, conjunctiva clear ENT: Auricles normal inspection, hearing grossly normal, nares patent, oropharynx clear without exudates. Moist mucosa LUNGS: No distress, speaks full sentences, clear to auscultation bilaterally HEART: Regular rate and rhythm, normal S1 and S2, no murmurs, rubs or gallops, peripheral pulses normal and equal bilaterally. NEUROLOGICAL: Cranial nerves II through XII grossly intact. Normal speech, no focal sensorimotor deficits ED Treatment Course - LABORATORY CBC & Chemistry Diagram: 02/11/17 13:45 02/11/17 13:45 - ADDITIONAL ORDERS Additional order review: Laboratory Results 02/11/17 02/11/17 13:45 13:45 PT with INR 35.40 H INR 3.13 H D Sodium 138 Potassium 4.3 Chloride 104 Carbon Dioxide 25 Anion Gap 9 BUN 14 Creatinine 1.3 Creat Clearance w eGFR 56.90 Random Glucose 87 Calcium 8.9 Total Bilirubin 0.4 AST 20 D ALT 81 H D Alkaline Phosphatase 73 Creatine Kinase 159 Creatine Kinase Index 1.2 CK-MB (CK-2) 1.908 Troponin I 0.02 D Total Protein 7.3 Albumin 3.7 02/11/17 13:45 RBC 4.96 MCV 91.7 MCHC 31.7 L RDW 14.1 MPV 7.4 L Neutrophils % 58.2 Lymphocytes % 27.5 Monocytes % 10.9 H Eosinophils % 2.8 Basophils % 0.6 Medical Decision Making - Medical Decision Making 02/11/17 19:[address] Lamar. Patient is 56M with history of recent submassive PE with attempted submassive endovascular tpa (admitted 01/29-02/07) , here today complaining of several episodes of syncope, SOB, chest tightness, decreased exercise tolerance. Pending CTA, second trop and bnp. Plan is to re- evaluate after getting CTA, possibly transfer if worse. 02/11/17 20:37 Laboratory Tests 02/11/17 18:45 Troponin I 0.03 D B-Natriuretic Peptide 28.97 Labs show .03, BNP 29. CT shows interval improvement in clot burden. Patient recommended for admission, but does not wish to stay. PCP consulted for warfarin dose today, recommends 2.5mg. Will sign out AMA, patient is alert, oriented and demonstrated understandings of the risks and benefits of leaving. 02/11/17 20:53 After further discussion, patient wishes to stay for observation. Admitted to Dr Hinson in tele obs. *DC/Admit/Observation/Transfer Diagnosis at time of Disposition: Pulmonary embolism, DVT (deep venous thrombosis), Chest pain - Discharge Dispostion Disposition: AGAINST MEDICAL ADVICE Condition at time of disposition: Stable Admit: No - Referrals Referrals: Alfred Mcdaniels MD [Primary Care Provider] - - Patient Instructions Printed Discharge Instructions: DI for Deep Vein Thrombosis, DI for Pulmonary Embolism Additional Instructions: You signed out of the ED today against medical advice. Please feel free to return if you have any new, worsening or concerning symptoms. Please follow up with your PCP as soon as possible, we discussed seeing your PCP Monday. - Post Discharge Activity
[2017-02-11 19:18] LABS: TROPONIN I 0.03 ng/ml (0.00-0.05)
[2017-02-11] MEDS ORDERED: WARFARIN NA 2.5 MG TABLET (FP) PO ONE (20:22)
--- NOTE | 2017-02-12 00:28 | HP ---
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 Cardiovascular: Yes: Deep Vein Thrombosis Pulmonary: Yes: Pulmonary Embolus Renal/: Yes: BPH Heme/Onc: Yes: Other (chronic myeloid leukemia.) Psych: Yes: Anxiety - Smoking History Smoking history: Never smoked Have you smoked in the past 12 months: No Aproximately how many cigarettes per day: 0 - Alcohol/Substance Use Hx Alcohol Use: No - Social History ADL: Independent Home Medications - Allergies Allergies/Adverse Reactions: Allergies Allergy/AdvReac Type Severity Reaction Status Date / Time No Known Allergies Allergy Verified 02/11/17 13:44 - Home Medications Home Medications: Ambulatory Orders Imatinib Mesylate [Gleevec] 400 mg PO DAILY 12/28/15 Benzonatate 100 mg PO Q8H PRN 01/29/17 Finasteride 5 mg PO DAILY 01/29/17 Warfarin Sodium 4 mg PO HS 02/11/17 Review of Systems - Review of Systems Constitutional: reports: No Symptoms Eyes: reports: No Symptoms HENT: reports: No Symptoms Neck: reports: No Symptoms Cardiovascular: reports: Chest Pain Respiratory: reports: No Symptoms Gastrointestinal: reports: No Symptoms Physical Examination Vital Signs: Vital Signs Temperature 98.1 F 02/11/17 18:31 Pulse Rate 69 02/11/17 18:31 Respiratory Rate 18 02/11/17 18:31 Blood Pressure 124/72 02/11/17 18:31 O2 Sat by Pulse Oximetry (%) 99 02/11/17 18:31 Constitutional: Yes: Well Nourished, No Distress, Calm Eyes: Yes: WNL, Conjunctiva Clear, EOM Intact HENT: Yes: WNL, Atraumatic, Normocephalic Neck: Yes: WNL, Supple, Trachea Midline Cardiovascular: Yes: WNL, Regular Rate and Rhythm Respiratory: Yes: WNL, Regular, CTA Bilaterally Gastrointestinal: Yes: WNL, Normal Bowel Sounds, Soft ...Rectal Exam: Yes: Deferred Musculoskeletal: Yes: WNL Extremities: Yes: WNL Edema: LLE: 1+ (tenderness (site of DVT) ) Labs: CBC, BMP 02/11/17 13:45 02/11/17 13:45 Imaging - Results X-ray: Report Reviewed, Image Reviewed Cat Scan: Report Reviewed, Image Reviewed Problem List - Problems (1) Chest pain Assessment/Plan: 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 that he had a cath begining of this year at [facility] and no stents were placed Code(s): R07.9 - CHEST PAIN, UNSPECIFIED (2) DVT (deep venous thrombosis) Assessment/Plan: chronic being managed with warfarin c/w warfarin Code(s): I82.409 - ACUTE EMBOLISM AND THOMBOS UNSP DEEP VN UNSP LOWER EXTREMITY (3) Pulmonary embolism Assessment/Plan: acute PE that was on the last admission will continue patient on warfarin daily INR adjust medication based on INR level Code(s): I26.99 - OTHER PULMONARY EMBOLISM WITHOUT ACUTE COR PULMONALE (4) CML (chronic myelocytic leukemia) Assessment/Plan: stable c/w gleevac Code(s): C92.10 - CHRONIC MYELOID LEUK, BCR/ABL-POSITIVE, NOT ACHIEVE REMIS
[2017-02-12 14:44] LABS: INR 3.15 (0.82-1.09); PROTHROMBIN TIME (PATIENT) 35.6 SEC (9.98-11.88)
--- NOTE | 2017-02-12 14:52 | PN ---
Progress Note, Physician Chief Complaint: 56yo M recent dx of provoked PE on 01/29/17 on coumadin (compliant), CML on gleevac p/w R lower CP intermittently since yesterday. CP is more of a tightness he states and is positional. +mild SOB x1 day when ascending stairs only. No LOC. Last coumadin was 3.2, pt was told to hold a dose of coumadin and is concerned by holding this dose, his PE may have progressed. Denies F/C, headache, N/V/D, abd pain, weakness/numbness. INR today is 3.1. History of Present Illness: 56yo M recent dx of provoked PE on 01/29/17 on coumadin (compliant), CML on gleevac p/w R lower CP intermittently since yesterday. CP is more of a tightness he states and is positional. +mild SOB x1 day when ascending stairs only. No LOC. Last coumadin was 3.2, pt was told to hold a dose of coumadin and is concerned by holding this dose, his PE may have progressed. Denies F/C, headache, N/V/D, abd pain, weakness/numbness. INR today is 3.1. - Objective Vital Signs: Vital Signs Temperature 98.2 F 02/12/17 06:39 Pulse Rate 74 02/12/17 10:35 Respiratory Rate 20 02/12/17 10:35 Blood Pressure 116/76 02/12/17 10:35 O2 Sat by Pulse Oximetry (%) 98 02/12/17 10:35 Constitutional: Yes: Well Nourished, No Distress Eyes: Yes: Conjunctiva Clear, EOM Intact HENT: Yes: Atraumatic, Normocephalic Neck: Yes: Supple, Trachea Midline Cardiovascular: Yes: Regular Rate and Rhythm, S1, S2 Respiratory: Yes: Regular, CTA Bilaterally Gastrointestinal: Yes: Normal Bowel Sounds, Soft Labs: CBC, BMP 02/11/17 13:45 02/11/17 13:45 INR, PTT INR 3.13 (0.82-1.09) H D 02/11/17 13:45 Problem List - Problems (1) Chest pain Code(s): R07.9 - CHEST PAIN, UNSPECIFIED (2) DVT (deep venous thrombosis) Code(s): I82.409 - ACUTE EMBOLISM AND THOMBOS UNSP DEEP VN UNSP LOWER EXTREMITY (3) Pulmonary embolism Code(s): I26.99 - OTHER PULMONARY EMBOLISM WITHOUT ACUTE COR PULMONALE (4) CML (chronic myelocytic leukemia) Code(s): C92.10 - CHRONIC MYELOID LEUK, BCR/ABL-POSITIVE, NOT ACHIEVE REMIS (5) Syncope and collapse Code(s): R55 - SYNCOPE AND COLLAPSE Assessment/Plan (1) Chest pain Code(s): R07.9 - CHEST PAIN, UNSPECIFIED (2) DVT (deep venous thrombosis) Code(s): I82.409 - ACUTE EMBOLISM AND THOMBOS UNSP DEEP VN UNSP LOWER EXTREMITY (3) Pulmonary embolism Code(s): I26.99 - OTHER PULMONARY EMBOLISM WITHOUT ACUTE COR PULMONALE (4) CML (chronic myelocytic leukemia) Code(s): C92.10 - CHRONIC MYELOID LEUK, BCR/ABL-POSITIVE, NOT ACHIEVE REMIS (5) Syncope and collapse Code(s): R55 - SYNCOPE AND COLLAPSE
[2017-02-12 15:00] LABS: TROPONIN I 0.02 ng/ml (0.00-0.05)
[2017-02-12 15:18] VITALS: TEMP 98.3
--- NOTE | 2017-02-12 16:26 | CON.CARD ---
Consult Consult Specialty:: cardiology Reason for Consultation:: atypical chest discomfort; s/p recent PE - History of Present Illness Chief Complaint: Pt A&Ox3; asymptomatic now. Pt's is at bedside. History of Present Illness: 56yo black man with recent dx of provoked PE on 01/29/17 on coumadin (compliant ), CML on gleevac p/w R lower CP intermittently since yesterday. CP is more of a tightness he states and is positional.It started when he "ate too much monday evening; the next morning, he felt it again after eatin; +mild SOB x1 day when ascending stairs only. No LOC. Last coumadin was 3.2, pt was told to hold a dose of coumadin and is concerned by holding this dose, his PE may have progressed. Denies F/C, headache, N/V/D, abd pain, weakness/numbness. INR today is 3.1. Pt says his left leg swelling has decreased since discharged from hospital. 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 Cardio/Vascular: Yes: Deep Vein Thrombosis Pulmonary: Yes: Pulmonary Embolus Renal/: Yes: BPH Psych: Yes: Anxiety Musculoskeletal: Yes: Other (Left LE swelling (DVT/PE last admission)) - Alcohol/Substance Use Hx Alcohol Use: No - Smoking History Smoking history: Never smoked Have you smoked in the past 12 months: No Aproximately how many cigarettes per day: 0 - Social History Usual Living Arrangement: With Spouse ADL: Independent Home Medications - Allergies Allergies/Adverse Reactions: Allergies Allergy/AdvReac Type Severity Reaction Status Date / Time No Known Allergies Allergy Verified 02/11/17 13:44 - Home Medications Home Medications: Ambulatory Orders Imatinib Mesylate [Gleevec] 400 mg PO DAILY 12/28/15 Benzonatate 100 mg PO Q8H PRN 01/29/17 Finasteride 5 mg PO DAILY 01/29/17 Warfarin Sodium 4 mg PO HS 02/11/17 Family Disease History - Family Disease History Family History: Denies Review of Systems - Review of Systems Constitutional: reports: No Symptoms Eyes: reports: No Symptoms HENT: reports: No Symptoms Neck: reports: No Symptoms Cardiovascular: reports: No Symptoms Respiratory: reports: No Symptoms Gastrointestinal: reports: Indigestion Genitourinary: reports: No Symptoms Breasts: reports: No Symptoms Reported Musculoskeletal: reports: Extremity Pain Integumentary: reports: No Symptoms Neurological: reports: No Symptoms Endocrine: reports: No Symptoms Hematology/Lymphatic: reports: Other Psychiatric: reports: Anxiety - Risk Factors Known Risk Factors: Yes: Age, Gender, Physical Inactivity, Race, Other (s/p PE; RV dilatation and hypokinesis) Vital Signs: Vital Signs Temperature 98.3 F 02/12/17 15:00 Pulse Rate 74 02/12/17 15:00 Respiratory Rate 18 02/12/17 15:00 Blood Pressure 130/73 02/12/17 15:00 O2 Sat by Pulse Oximetry (%) 100 02/12/17 15:00 Constitutional: Yes: Well Nourished, Anxious Eyes: Yes: WNL HENT: Yes: WNL Neck: Yes: WNL Respiratory: Yes: WNL Gastrointestinal: Yes: WNL Renal/: No: Anuria Cardiovascular: Yes: WNL JVD: No Carotid Bruit: No PMI: Non-Displaced Heart Sounds: Yes: S1, S2 Musculoskeletal: Yes: Other (mild enlargement of Left calf (improved cmpared to recent admission for PE)). No: Muscle Pain Extremities: No: Calf Tenderness Edema: No Peripheral Pulses WNL: Yes Integumentary: Yes: WNL Neurological: Yes: WNL Psychiatric: Yes: WNL - Other Data Labs, Other Data: CBC, BMP 02/11/17 13:45 02/11/17 13:45 INR, PTT INR 3.15 (0.82-1.09) H 02/12/17 14:20 Troponin, BNP 02/11/17 02/12/17 18:45 14:20 Troponin I 0.03 D 0.02 D B-Natriuretic Peptide 28.97 Troponin, BNP 02/11/17 02/12/17 18:45 14:20 Troponin I 0.03 D 0.02 D B-Natriuretic Peptide 28.97 Abnormal Lab Results 02/12/17 14:20 PT with INR 35.60 H INR 3.15 H Echo: Image Reviewed (NSR; Ts inverted V1-V3 (improved compared to recent admisiion)) Imaging - Results Cat Scan: Image Reviewed (virtually resolved PEs) Problem List - Problems (1) Pulmonary embolism Assessment/Plan: CTA now shows nearly complete resolution of the PEs. EKC: NSR; no significant changes from prior admission. TNI negative. INR 3.1 (and >3 o on entrance to ER) Code(s): I26.99 - OTHER PULMONARY EMBOLISM WITHOUT ACUTE COR PULMONALE (2) CML (chronic myelocytic leukemia) Assessment/Plan: f/u with hem/onc Code(s): C92.10 - CHRONIC MYELOID LEUK, BCR/ABL-POSITIVE, NOT ACHIEVE REMIS (3) Chest pain, atypical Assessment/Plan: TNI negative x 3. EKG: NSR; no significant changes from prior admission. CTA: virtually completely resolved PEs. From cardeiac viewpoint, pt may be followed up as an outpatient. An ECHo will be repeated in the future (ECHO during PE admission noted enlarged, hypokinetic RV; LVEF was NL). Code(s): R07.89 - OTHER CHEST PAIN
--- NOTE | 2017-02-12 17:09 | EKG ---
Test Reason : Blood Pressure : / mmHG Vent. Rate : 070 BPM Atrial Rate : 070 BPM P-R Int : 138 ms QRS Dur : 098 ms QT Int : 408 ms P-R-T Axes : 061 080 056 degrees QTc Int : 440 ms NORMAL SINUS RHYTHM T WAVE ABNORMALITY, CONSIDER ANTERIOR ISCHEMIA ABNORMAL ECG WHEN COMPARED WITH ECG OF 01-FEB-2017 08:54, NONSPECIFIC T WAVE ABNORMALITY NO LONGER EVIDENT IN LATERAL LEADS QT HAS SHORTENED Confirmed by TOBIN SANCHEZ MD ([id number]) on 02/12/2017 5:09:02 PM Referred By: Confirmed By:TOBIN SANCHEZ MD
[2017-02-12 18:36] VITALS: BP 128/74; PULSE 69
== END 2017-02-12 17:30 | disposition left against medical advice (07) | DRG 313 ==
LOC: JER 13:39 → OBSVTOIN 20:52 → JERBED 20:52
PROVIDERS: ADMIT Internal Medicine; ATTEND Internal Medicine
DX: R07.9 Chest pain, unspecified (principal); C92.10 Chronic myeloid leukemia, BCR/ABL-positive, not having achieved remission; Z86.711 Personal history of pulmonary embolism; Z79.01 Long term (current) use of anticoagulants; Z86.718 Personal history of other venous thrombosis and embolism
CPT/HCPCS: 36415; 71020-TC; 71275-TC; 80053; 82550; 82553; 83880; 84484; 85025; 85610; 93005; 93010; 99285-25